=== PATIENT | male | born 1950 ===

== ENCOUNTER → 2020-01-08 08:32 | Outpatient (BNVA) | payer MEDICARE, OTHER, SELFPAY | PROVIDERS: PCP Internal Medicine; Referring Provider Internal Medicine; Visit Provider Urology | DX: E29.1 Testicular hypofunction (principal) | CPT/HCPCS: 81002; 99212 ==

== ENCOUNTER → 2020-07-08 09:17 | Outpatient (BNVA) | payer MEDICARE, OTHER, SELFPAY | PROVIDERS: PCP Internal Medicine; Visit Provider Urology | DX: Z13.89 Encounter for screening for other disorder (principal) | CPT/HCPCS: Q3014 ==

== ENCOUNTER 2020-12-15 09:00 | Outpatient (RCR) | payer MEDICARE, OTHER, SELFPAY ==
[2020-11-23 08:06] VITALS: BP 151/107; PULSE 89; O2SAT 100
== END 2021-01-21 12:03 | disposition home or self-care (01) ==
LOC: HO.PT 09:00
PROVIDERS: PCP Internal Medicine; Visit Provider Orthopaedic Surgery Adult Reconstructive Orthopaedic Surgery
DX: T84.84XA Pain due to internal orthopedic prosthetic devices, implants and grafts, initial encounter (principal); Z96.641 Presence of right artificial hip joint
CPT/HCPCS: 97110; 97112; 97162; 97530

== ENCOUNTER → 2020-12-31 10:48 | Outpatient (BNVA) | payer MEDICARE, OTHER, SELFPAY | PROVIDERS: PCP Internal Medicine; Visit Provider Urology | DX: N52.9 Male erectile dysfunction, unspecified (principal); N20.0 Calculus of kidney; N40.0 Benign prostatic hyperplasia without lower urinary tract symptoms; E29.1 Testicular hypofunction | CPT/HCPCS: Q3014 ==

== ENCOUNTER 2021-07-12 12:56 | Outpatient (REF) | payer MEDICARE, OTHER, SELFPAY ==
[2021-07-12 13:39] LABS: COVID-19 Test Negative (Negative); IDNOW Serial# 55D5AD1C
== END 2021-07-12 12:57 | disposition home or self-care (01) ==
LOC: HO.LAB 12:56
PROVIDERS: Visit Provider Internal Medicine
DX: Z20.822 Contact with and (suspected) exposure to COVID-19 (principal)
CPT/HCPCS: 87635; C9803

== ENCOUNTER → 2021-09-22 09:00 | Outpatient (BNVA) | payer MEDICARE, OTHER, SELFPAY | PROVIDERS: Visit Provider Urology | DX: E29.1 Testicular hypofunction (principal); N52.9 Male erectile dysfunction, unspecified; N40.0 Benign prostatic hyperplasia without lower urinary tract symptoms | CPT/HCPCS: Q3014 ==

== ENCOUNTER → 2022-03-31 08:29 | Outpatient (BNVA) | payer MEDICARE, OTHER, SELFPAY | PROVIDERS: PCP Pediatrics; Visit Provider Urology | DX: E29.1 Testicular hypofunction (principal); N40.1 Benign prostatic hyperplasia with lower urinary tract symptoms; N13.8 Other obstructive and reflux uropathy; N52.9 Male erectile dysfunction, unspecified; N20.0 Calculus of kidney; Z79.899 Other long term (current) drug therapy | CPT/HCPCS: 99212 ==

== ENCOUNTER → 2022-06-01 09:35 | Outpatient (BNVA) | payer MEDICARE, OTHER, SELFPAY | PROVIDERS: PCP Pediatrics; Visit Provider Urology | DX: N40.0 Benign prostatic hyperplasia without lower urinary tract symptoms (principal); E29.1 Testicular hypofunction | CPT/HCPCS: Q3014 ==

== ENCOUNTER → 2022-08-11 08:55 | Outpatient (BNVA) | payer MEDICARE, OTHER, SELFPAY | PROVIDERS: PCP Pediatrics; Visit Provider Urology | DX: N20.0 Calculus of kidney (principal); N40.0 Benign prostatic hyperplasia without lower urinary tract symptoms; E29.1 Testicular hypofunction | CPT/HCPCS: 99212 ==

== ENCOUNTER 2022-08-29 09:00 | Outpatient (RCR) | payer MEDICARE, OTHER, SELFPAY | END 2022-09-21 15:53 | disposition home or self-care (01) | LOC: HO.PT 09:00 | PROVIDERS: PCP Pediatrics; Visit Provider Physician Assistant | DX: M54.2 Cervicalgia (principal); M54.50 Low back pain, unspecified | CPT/HCPCS: 97012; 97110; 97112; 97140; 97162 ==

== ENCOUNTER 2023-02-24 10:19 | Outpatient (AMB) | payer MEDICARE, OTHER, SELFPAY ==
--- NOTE | 2023-02-24 10:20 | MHC.OFFVIS ---
Intake Intake Visit Reasons: 6M PSA/CBC/Testo(labs?) Intake Note: Patient is Present for Telephone Follow Up Urology Med: Tadalafil, Terazosin, Testosterone, Antibiotic Allergy: None Blood Thinner: Apixaban Allergies tamsulosin Allergy (Unknown, Verified 02/24/23 10:21) Unknown Medication List - Last Reconciled 02/24/23 by Erickson Huitron MD apixaban 5 mg PO BID furosemide 0 mg PO irbesartan 75 mg PO DAILY tadalafil 5 mg PO DAILY PRN 90 days tafamidis 61 mg PO DAILY terazosin 5 mg PO BEDTIME 90 days testosterone (AndroGel) 4 pumps transdermal QAM 28 days torsemide 10 mg PO DAILY HPI HPI Comments History of Present Illness Details Brett is a pleasant male. He is a patient of Dr. Flores. He is seen for the following urologic condition. 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 Initial symptoms include decreased libido Yes in muscle size/strength Yes increased fatigue/malaise Yes The onset of symptoms has been gradual Laboratory results followup 09/24 , testosterone 426, , PSA 1.5, , Hct 43 09/25 , testosterone 181, 04/29 - T 544, 10/27 - T 360, PSA 2.2, 10/28 - T 124, PSA 2.0 11/29 845 Hct 48 PSA 2.7, 12/30 T 460 PSA 3.4, 07/01 T 577, PSA 4.0, 07/02 T 1111 PSA 4.3 45.2. 03/03 307, 02/02 242 3.6 Current therapy includes gel/cream exogenous testosterone - 2 pumps Therapeutic plan continue current medication Lower urinary tract symptoms Has had urgency and frequency secondary to starting medications 07/01 PSA 4.0 Prior poor response to tamsulosin, alfuzosin Good response to daily tadalafil 5 mg PFS Medical History Atrial fibrillation Shingles Erectile dysfunction Colonic polyp Hypogonadism in male OA (osteoarthritis) BPH (benign prostatic hyperplasia) Bilateral nephrolithiasis Surgical History History of surgery Review of Systems Const All systems reviewed & are unremarkable except as noted in HPI and below Reports no additional complaints Resp Reports no additional complaints GI Reports no additional complaints Reports as per HPI Musc Reports no additional complaints Physical Exam Telemedicine evaluation Appropriate responses Regular breathing rate and rhythm HEENT Head: Yes normal to inspection Ears: hearing grossly normal bilaterally Eyes General: appearance normal, both eyes and all related structures Neck Neck: Yes normal visual inspection Chest Chest palpation & inspection: normal inspection of the chest Resp Effort & Inspection: normal respiratory effort and able to speak in complete sentences Assessment & Plan Assessment & Plan (1) Hypogonadism in male: Code(s): E29.1 - Testicular hypofunction (2) BPH (benign prostatic hyperplasia): Code(s): N40.0 - Benign prostatic hyperplasia without lower urinary tract symptoms Plan Three month follow-up lab work Increase T Orders: Orders Prostate Specific Antigen 3 Months E29.1 - Testicular hypofunction Testosterone, Total 3 Months E29.1 - Testicular hypofunction Complete Blood Count no Diff 3 Months E29.1 - Testicular hypofunction Medications: Changed From testosterone (AndroGel) apply 2 pumps total daily 2 pumps transdermal QAM 75 grams 5RF 28 days E29.1 - Testicular hypofunction To testosterone (AndroGel) apply 4 pumps total daily 4 pumps transdermal QAM 150 grams 5RF 28 days E29.1 - Testicular hypofunction Refilled tadalafil 5 mg PO DAILY PRN 90 tabs 1RF sexual activity 90 days terazosin 5 mg PO BEDTIME 90 caps 1RF 90 days N40.0 - Benign prostatic hyperplasia without lower urinary tract symptoms, N40.1 - Benign prostatic hyperplasia with lower urinary tract symptoms, R35.0 - Frequency of micturition Patient Instructions: Imaging studies, laboratory and physical exam results were discussed and reviewed in detail. No major barriers to patient understanding were identified. An opportunity to ask questions regarding the treatment plan was provided. All questions were answered. The patient expressed understanding and agreement with the above treatment plan. The patient is aware they should contact our office by phone for worsening of their current condition or the appearance of new urologic symptoms. Compliance is encouraged with any medications and followup testing that is ordered. It is a privilege to participate in the urologic care of your patient. If you have any questions or concerns regarding treatment for the above conditions, or other urologic issues, please do not hesitate to contact me. The office telephone contact is [phone]. This note is constructed using voice recognition software. While every effort has been made to ensure accuracy pattern storage clerk errors may have been included. Yours sincerely, Dr Erickson Huitron MD, [facility] - Urology Providers of Expert, Compassionate Care for the Genitourinary System Telehealth Telehealth Location of provider rendering services: practice address Location of patient: address on file Patient Identification confirmed using: Name, : Yes Telehealth method: video Patient verbally consented to treatment: Yes Patient verbally consented to billing insurance company: Yes Patient informed of any privacy concerns related to visit: Yes Coding Level of Care Code Tele Est Pt Level 4 (03448) Diagnoses Hypogonadism in male E29.1 BPH (benign prostatic hyperplasia) N40.0
== END 2023-02-24 10:49 | disposition home or self-care (01) ==
LOC: HO.HUSH 10:19
PROVIDERS: PCP Pediatrics; Visit Provider Urology
DX: E29.1 Testicular hypofunction (principal); N40.0 Benign prostatic hyperplasia without lower urinary tract symptoms
CPT/HCPCS: 99214

== ENCOUNTER → 2023-02-24 10:19 | Outpatient (BNVA) | payer MEDICARE, OTHER, SELFPAY | PROVIDERS: PCP Pediatrics; Visit Provider Urology ==

== ENCOUNTER 2023-05-30 09:39 | Outpatient (AMB) | payer MEDICARE, OTHER, SELFPAY ==
--- NOTE | 2023-05-30 10:14 | MHC.OFFVIS ---
Intake Intake Visit Reasons: 3M PSA/T/CBC(set)Confirmed Intake Note: Patient is Present for Follow Up Urology Medication: Tadalafil, Terazosin, Testosterone Antibiotic Allergies:none Blood Thinners:Apixaban Allergies tamsulosin Allergy (Unknown, Verified 02/24/23 10:21) Unknown Medication List - Last Reconciled 05/30/23 by Erickson Huitron MD apixaban 5 mg PO BID furosemide 0 mg PO irbesartan 75 mg PO DAILY tadalafil 5 mg PO DAILY PRN 90 days tafamidis 61 mg PO DAILY terazosin 5 mg PO BEDTIME 90 days testosterone (AndroGel) 4 pumps transdermal QAM 28 days torsemide 10 mg PO DAILY HPI HPI Comments History of Present Illness Details Brett is a pleasant male. He is a patient of Dr. Flores. He is seen for the following urologic condition. 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 Discussed recent data showing benefit in cardiac performance from testosterone usage. 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 Initial symptoms include decreased libido Yes in muscle size/strength Yes increased fatigue/malaise Yes The onset of symptoms has been gradual Laboratory results followup 09/24 , testosterone 426, , PSA 1.5, , Hct 43 09/25 , testosterone 181, 04/29 - T 544, 10/27 - T 360, PSA 2.2, 10/28 - T 124, PSA 2.0 11/29 845 Hct 48 PSA 2.7, 12/30 T 460 PSA 3.4, 07/01 T 577, PSA 4.0, 07/02 T 1111 PSA 4.3 45.2. 03/03 307, 02/02 242 3.6 Current therapy includes gel/cream exogenous testosterone - 2 pumps Therapeutic plan continue current medication Lower urinary tract symptoms Has had urgency and frequency secondary to starting medications 07/01 PSA 4.0, 06/03 4.5 Prior poor response to tamsulosin, alfuzosin Good response to daily tadalafil 5 mg [facility] Medical History Atrial fibrillation Shingles Erectile dysfunction Colonic polyp Hypogonadism in male OA (osteoarthritis) BPH (benign prostatic hyperplasia) Bilateral nephrolithiasis Surgical History History of surgery Review of Systems Const Denies chills and Denies fever(s) Card Reports no additional complaints and Denies syncope Resp Denies cough GI Denies abdominal pain and Denies heartburn Reports as per HPI and Denies change in libido Neuro Denies syncope Psych Denies change in libido Endo Denies change in libido Physical Exam Const General: cooperative, healthy appearing, comfortable and no acute distress Orientation/consciousness: patient oriented x3 HEENT Face and sinus: Yes normal facial exam Mouth: moist mucous membranes Neck Neck: Yes normal visual inspection, Yes full ROM and Yes trachea midline Chest Chest palpation & inspection: normal inspection of the chest Resp Effort & Inspection: normal respiratory effort, able to speak in complete sentences and no respiratory distress GI Inspection: Yes normal to inspection Back/Spine/Pelvis Cervical Spine: normal cervical lordosis Thoracic/Lumbar Spine: thoracic and lumbar spine normal to inspection Skin General skin exam: no rashes or lesions noted Neuro General: patient oriented x3, gait normal, tone normal and moves all extremities Extrem General: Yes normal to inspection and Yes capillary refill normal Assessment & Plan Assessment & Plan (1) Erectile dysfunction: Code(s): N52.9 - Male erectile dysfunction, unspecified (2) BPH (benign prostatic hyperplasia): Code(s): N40.0 - Benign prostatic hyperplasia without lower urinary tract symptoms (3) Hypogonadism in male: Code(s): E29.1 - Testicular hypofunction Plan Six-month follow-up lab work Orders: Orders Prostate Specific Antigen 6 Months E29.1 - Testicular hypofunction Testosterone, Total 6 Months E29.1 - Testicular hypofunction Complete Blood Count no Diff 6 Months E29.1 - Testicular hypofunction Medications: Changed From testosterone apply 4 pumps total daily 4 pumps transdermal QAM 28 days 150 grams 5RF E29.1 - Testicular hypofunction To testosterone (AndroGel) apply 4 pumps total daily 4 pumps transdermal QAM 150 grams 5RF 28 days E29.1 - Testicular hypofunction Refilled terazosin 5 mg PO BEDTIME 90 caps 1RF 90 days N40.0 - Benign prostatic hyperplasia without lower urinary tract symptoms, N40.1 - Benign prostatic hyperplasia with lower urinary tract symptoms, R35.0 - Frequency of micturition tadalafil 5 mg PO DAILY PRN 90 tabs 1RF sexual activity 90 days E29.1 - Testicular hypofunction Patient Instructions: Imaging studies, laboratory and physical exam results were discussed and reviewed in detail. No major barriers to patient understanding were identified. An opportunity to ask questions regarding the treatment plan was provided. All questions were answered. The patient expressed understanding and agreement with the above treatment plan. The patient is aware they should contact our office by phone for worsening of their current condition or the appearance of new urologic symptoms. Compliance is encouraged with any medications and followup testing that is ordered. It is a privilege to participate in the urologic care of your patient. If you have any questions or concerns regarding treatment for the above conditions, or other urologic issues, please do not hesitate to contact me. The office telephone contact is [phone]. This note is constructed using voice recognition software. While every effort has been made to ensure accuracy flexible machining system machinist errors may have been included. Yours sincerely, Dr Erickson Huitron MD, [facility] - Urology Providers of Expert, Compassionate Care for the Genitourinary System Coding Level of Care Code Est Pt Level 4 (96156) Diagnoses Erectile dysfunction N52.9 BPH (benign prostatic hyperplasia) N40.0 Hypogonadism in male E29.1
== END 2023-05-30 10:51 | disposition home or self-care (01) ==
PROVIDERS: PCP Pediatrics; Visit Provider Urology
DX: N52.9 Male erectile dysfunction, unspecified (principal); N40.0 Benign prostatic hyperplasia without lower urinary tract symptoms; E29.1 Testicular hypofunction
CPT/HCPCS: 99213

== ENCOUNTER → 2023-05-30 09:39 | Outpatient (BNVA) | payer MEDICARE, OTHER, SELFPAY | PROVIDERS: PCP Pediatrics; Visit Provider Urology | DX: E29.1 Testicular hypofunction (principal); N40.0 Benign prostatic hyperplasia without lower urinary tract symptoms; R35.0 Frequency of micturition | CPT/HCPCS: 99212 ==

== ENCOUNTER 2023-11-28 09:08 | Outpatient (AMB) | payer MEDICARE, OTHER, SELFPAY ==
--- NOTE | 2023-11-28 09:29 | A.OFFVIS_ITS ---
Intake Visit Reasons: 6m/labs(set) Intake Note: Patient is Present for Follow Up Labs Urology Medication: Testosterone, Terazosin, Tadalafil Antibiotic Allergies:None Blood Thinners: Apixaban Recent PSA: 11/10/23- PSA: 3.70 Testo: 354 Insurance Account Manager Required: No Accompanied by: Self / Same As Patient Allergies tamsulosin Allergy (Unknown, Verified 11/28/23 09:33) Unknown HPI Comments Details: Brett is a pleasant male. He is a patient of Dr. Flores. He is seen for the following urologic condition. 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 Discussed recent data showing benefit in cardiac performance from testosterone usage. 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 Initial symptoms include decreased libido Yes in muscle size/strength Yes increased fatigue/malaise Yes The onset of symptoms has been gradual Laboratory results followup 09/24 , testosterone 426, , PSA 1.5, , Hct 43 09/25 , testosterone 181, 04/29 - T 544, 10/27 - T 360, PSA 2.2, 10/28 - T 124, PSA 2.0 11/29 845 Hct 48 PSA 2.7, 12/30 T 460 PSA 3.4, 07/01 T 577, PSA 4.0, 07/02 T 1111 PSA 4.3 45.2. 03/03 307, 02/02 242 3.6, 11/03 350 Current therapy includes gel/cream exogenous testosterone - 2 pumps Therapeutic plan continue current medication Lower urinary tract symptoms Has had urgency and frequency secondary to starting medications 07/01 PSA 4.0, 06/03 4.5 Prior poor response to tamsulosin, alfuzosin Good response to daily tadalafil 5 mg PFS Medical History Atrial fibrillation Shingles Erectile dysfunction Colonic polyp Hypogonadism in male OA (osteoarthritis) BPH (benign prostatic hyperplasia) Bilateral nephrolithiasis Surgical History History of surgery Review of Systems Const Denies chills and Denies fever(s) Card Reports no additional complaints and Denies syncope Resp Denies cough GI Denies abdominal pain and Denies heartburn Reports as per HPI and Denies change in libido Neuro Denies syncope Psych Denies change in libido Endo Denies change in libido Physical Exam Const General: cooperative, healthy appearing, comfortable and no acute distress Orientation/consciousness: patient oriented x3 HEENT Face and sinus: Yes normal facial exam Mouth: moist mucous membranes Neck Neck: Yes normal visual inspection, Yes full ROM and Yes trachea midline Chest Chest palpation & inspection: normal inspection of the chest Resp Effort & Inspection: normal respiratory effort, able to speak in complete sentences and no respiratory distress GI Inspection: Yes normal to inspection Back/Spine/Pelvis Cervical Spine: normal cervical lordosis Thoracic/Lumbar Spine: thoracic and lumbar spine normal to inspection Skin General skin exam: no rashes or lesions noted Neuro General: patient oriented x3, gait normal, tone normal and moves all extremities Extrem General: Yes normal to inspection and Yes capillary refill normal Assessment & Plan Assessment & Plan (1) Bilateral nephrolithiasis: Code(s): N20.0 - Calculus of kidney Category: Medical (2) Hypogonadism in male: Code(s): E29.1 - Testicular hypofunction Category: Medical (3) Erectile dysfunction: Code(s): N52.9 - Male erectile dysfunction, unspecified Category: Medical Plan Six-month follow-up labs Patient Instructions: Imaging studies, laboratory and physical exam results were discussed and reviewed in detail. No major barriers to patient understanding were identified. An opportunity to ask questions regarding the treatment plan was provided. All questions were answered. The patient expressed understanding and agreement with the above treatment plan. The patient is aware they should contact our office by phone for worsening of their current condition or the appearance of new urologic symptoms. Compliance is encouraged with any medications and followup testing that is ordered. It is a privilege to participate in the urologic care of your patient. If you have any questions or concerns regarding treatment for the above conditions, or other urologic issues, please do not hesitate to contact me. The office telephone contact is [phone]. This note is constructed using voice recognition software. While every effort has been made to ensure accuracy hvac r instructor errors may have been included. Yours sincerely, Dr Erickson Huitron MD, [facility] - Urology Providers of Expert, Compassionate Care for the Genitourinary System Coding Level of Care Code Est Pt Level 3 (52887) Diagnoses Bilateral nephrolithiasis N20.0 Hypogonadism in male E29.1 Erectile dysfunction N52.9
== END 2023-11-28 09:54 | disposition home or self-care (01) ==
PROVIDERS: PCP Pediatrics; Visit Provider Urology
DX: N20.0 Calculus of kidney (principal); E29.1 Testicular hypofunction; N52.9 Male erectile dysfunction, unspecified
CPT/HCPCS: 99213

== ENCOUNTER → 2023-11-28 09:08 | Outpatient (BNVA) | payer MEDICARE, OTHER, SELFPAY | PROVIDERS: PCP Pediatrics; Visit Provider Urology | DX: E29.1 Testicular hypofunction (principal); N52.9 Male erectile dysfunction, unspecified; N20.0 Calculus of kidney; Z79.899 Other long term (current) drug therapy | CPT/HCPCS: 99212 ==

== ENCOUNTER 2024-06-19 09:25 | Outpatient (AMB) | payer MEDICARE, OTHER, SELFPAY ==
--- NOTE | 2024-06-19 09:26 | A.OFFVIS_ITS ---
Intake Visit Reasons: 6m/labs Intake Note: Patient is present for 6M/LABS Urology Medication:TADALAFIL,TESTOSTERONE,TERAZOSIN Antibiotic Allergy:NONE Blood Thinner:APIXABAN Mattress Renovator Required: No Allergies tamsulosin Allergy (Unknown, Verified 06/19/24 09:27) Unknown HPI Comments Details: Brett is a pleasant male. He is a patient of Dr. Flores. He is seen for the following urologic condition. 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 Discussed recent data showing benefit in cardiac performance from testosterone usage. 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 Initial symptoms include decreased libido Yes in muscle size/strength Yes increased fatigue/malaise Yes The onset of symptoms has been gradual Laboratory results followup 09/24 , testosterone 426, , PSA 1.5, , Hct 43 09/25 , testosterone 181, 04/29 - T 544, 10/27 - T 360, PSA 2.2, 10/28 - T 124, PSA 2.0 11/29 845 Hct 48 PSA 2.7, 12/30 T 460 PSA 3.4, 07/01 T 577, PSA 4.0, 07/02 T 1111 PSA 4.3 45.2. 03/03 307, 02/02 242 3.6, 11/03 350, 06/04 430 4.2 47 Current therapy includes gel/cream exogenous testosterone - 2 pumps Therapeutic plan continue current medication Lower urinary tract symptoms Has had urgency and frequency secondary to starting medications 07/01 PSA 4.0, 06/03 4.5 Prior poor response to tamsulosin, alfuzosin Good response to daily tadalafil 5 mg COUNTS INCLUDE 234 BEDS AT [facility] Medical History Atrial fibrillation Shingles Erectile dysfunction Colonic polyp Hypogonadism in male OA (osteoarthritis) BPH (benign prostatic hyperplasia) Bilateral nephrolithiasis Surgical History History of surgery Review of Systems Const Denies chills and Denies fever(s) Card Reports no additional complaints and Denies syncope Resp Denies cough GI Denies abdominal pain and Denies heartburn Reports as per HPI and Denies change in libido Neuro Denies syncope Psych Denies change in libido Endo Denies change in libido Physical Exam Const General: cooperative, healthy appearing, comfortable and no acute distress Orientation/consciousness: patient oriented x3 HEENT Face and sinus: Yes normal facial exam Mouth: moist mucous membranes Neck Neck: Yes normal visual inspection, Yes full ROM and Yes trachea midline Chest Chest palpation & inspection: normal inspection of the chest Resp Effort & Inspection: normal respiratory effort, able to speak in complete sentences and no respiratory distress GI Inspection: Yes normal to inspection Back/Spine/Pelvis Cervical Spine: normal cervical lordosis Thoracic/Lumbar Spine: thoracic and lumbar spine normal to inspection Skin General skin exam: no rashes or lesions noted Neuro General: patient oriented x3, gait normal, tone normal and moves all extremities Extrem General: Yes normal to inspection and Yes capillary refill normal Assessment & Plan Assessment & Plan (1) BPH (benign prostatic hyperplasia): Code(s): N40.0 - Benign prostatic hyperplasia without lower urinary tract symptoms Category: Medical (2) Erectile dysfunction: Code(s): N52.9 - Male erectile dysfunction, unspecified Category: Medical (3) Hypogonadism in male: Code(s): E29.1 - Testicular hypofunction Category: Medical Plan Continue follow-up Orders: Orders US bladder 06/19/24 R39.12 - Poor urinary stream, N40.0 - Benign prostatic hyperplasia without lower urinary tract symptoms Medications: New finasteride 5 mg PO DAILY 90 tabs 1RF 90 days N40.0 - Benign prostatic hyperplasia without lower urinary tract symptoms Patient Instructions: This note is constructed using voice recognition software. While every effort has been made to ensure accuracy sr account executive errors may have been included. Imaging studies, laboratory and physical exam results were discussed and revi ewed in detail. No major barriers to patient understanding were identified. An opportunity to ask questions regarding the treatment plan was provided. All questions were answered. The patient expressed understanding and agreement with the above treatment plan. The patient is aware they should contact our office by phone for worsening of their current condition or the appearance of new urologic symptoms. Compliance is encouraged with any medications and followup testing that is ordered. It is a privilege to participate in the urologic care of your patient. If you have any questions or concerns regarding treatment for the above conditions, or other urologic issues, please do not hesitate to contact me. The office telephone contact is [phone]. Sincerely, Dr Erickson Huitron MD, [facility] - Urology Compassionate Specialist Care for the Genitourinary System Coding Level of Care Code Est Pt Level 3 (23802) Complex EM visit Add On G2211 Diagnoses BPH (benign prostatic hyperplasia) N40.0 Erectile dysfunction N52.9 Hypogonadism in male E29.1
--- OUTSIDE RECORDS SUMMARY | 2024-06-19 10:10 | XMS_ITS | Clinical Summary ---
Author Organization [facility] Address [address] [place] [address] Care Team Providers Care Oracle Architect Name Role Phone Danilo Ann MD Primary Care Provider [phone] Social History Tobacco Use Types Packs/Day Years Used Date Smoking Tobacco: Never Assessed Sex and Gender Information Value Date Recorded Sex Assigned at Not on file Gender Identity Not on file Sexual Orientation Not on file Plan of Treatment Health Maintenance Due Date Last Done Comments Hepatitis C Screening 1950 COVID-19 Vaccine (#1) [birth year]15/1949 Depression Screening 1960 Preventative Health Evaluation 1966 Colon Cancer Screening (Colonoscopy) 1993 Shingrix-Zoster Vaccine (1 of 2) 1998 Fall Risk Assessment 2013 RSV Adult > 60+ Yrs or (1 - 1-dose 75+ series) 07/16/2023 Influenza Vaccine (#1) 2023 0, 01/04/2018, 02/27/2016, Additional history exists DTap / Tdap / Td (2 - Td or Tdap) 04/15/2029 04/15/2019 Pneumococcal Vaccine Completed 03/15/2016, 05/31/19 15 Hepatitis B Vaccines Aged Out No long er eligible based on patient's age to complete this topic RSV Ped < 20 months Aged Out No longe r eligible based on patient's age to complete this topic Care Teams Oracle Architect Relationship Specialty Start Date End Date Danilo Ann MD [address] [place] [address] PCP - General Internal Medicine 01/14/19
--- OUTSIDE RECORDS SUMMARY | 2024-06-19 10:10 | XMS_ITS | Encounter Summary ---
Author Organization [facility] Address [address] [place] [address] Care Team Providers Care Spun Paste Machine Operator Name Role Phone Tavo Flores DO Primary Care Provider Reason for Visit * Reason Onset Date Comments Pre-operative Clearance 06/04/2024 Encounter Details Date Type Department Care Team (Late st Contact Info) Description 06/04/2024 Telephone [facility] [address] [place] [phone] Amando Kat MD [address] [place] [address] [address]IVE [address] [place] [address] Pre-operative Clearance Social History Tobacco Use Types Packs/Day Years Used Date Smoking Tobacco: Former Smokeless Tobacco: Never Alcohol Use Standard Drinks/Week Comments Yes 2 (1 standard drink = 0.6 oz pure alcohol) 2 drinks max per day, but normally not 2 Sex and Gender Information Value Date Recorded Sex Assigned at Not on file Legal Sex Male 10:03 AM EST Gender Identity Not on file Sexual Orientation Not on file Travel History Travel Start Travel End [place] 05/11/2024 05/19/2024 documented as of this encounter Progress Notes * Jackie Cannon RN - 06/04/2024 1:14 PM EDT I spoke to Brett and informed him of the below message. I advised him to contact his surgeon's office to see if another cardiac risk assessment appt is necessary. He voiced understanding and will call back if he needs another preop appt. * Heather Mederos NP - 06/04/2024 12:16 PM EDT Up to his surgeon, but don't think so. * Arielle Alvarado - 06/04/2024 10:41 AM EDT The patient called, he was seen on 04/05/24 with Heather for clearance for a removal of a sebaceous cyst. He did not end up going through with the procedure. He is now thinking about rescheduling it butneeds a new clearance. Is an appointment necessary. He would like a call back at [phone]. documented in this encounter Plan of Treatment Upcoming Encounters Date Type Department Care Team (Late st Contact Info) Description 10/04/2024 8:50 AM EDT Office Visit [facility]iology [facility] [address] [place] [address] Dr [address] [place] [address] Amando Kat MD [address] [place] [address] [address]IVE [address] [place] [address] documented as of this encounter Visit Diagnoses Not on filedocumented in this encounter Care Teams Spun Paste Machine Operator Relationship Specialty Start Date End Date Tavo Flores DO [address] [place] [address] [place] [address] PCP - General Internal Medicine 04/05/24 documented as of this encounter
--- OUTSIDE RECORDS SUMMARY | 2024-06-19 10:10 | XMS_ITS | Clinical Summary ---
Author Organization [facility] [employer] Address [address] [address] Phone Care Team Providers Care Stock Transfer Clerk Name Role Phone Tavo Flores DO Primary Care Provider Allergies No known active allergies Medications torsemide (DEMADEX) 10 mg tablet Take 1 tablet (10 mg total) by mouth 1 (one) time each day. 90 tablet 1 01/26/20 24 Active terazosin (HYTRIN) 5 mg capsule Take 1 capsule (5 mg total) by mouth at bedtime. Active testosterone 20.25 mg/1.25 gram (1.62 %) gel in metered-dose pump Apply topically. 06/13/19 20 Active apixaban (ELIQUIS) 5 mg tablet Take 1 tablet (5 mg total) by mouth 2 (two) times a day. 12/03/19 20 Active tadalafiL (CIALIS) 5 mg tablet Take 1 tablet (5 mg total) by mouth 1 (one) time each day. 12/03/19 20 Active tafamidis (Vyndamax) 61 mg capsule Take 61 mg by mouth daily. Active cholecalciferol, vitamin D3, (VITAMIN D3 ORAL) Take by mouth. Active irbesartan (AVAPRO) 75 mg tabletIndication s:Essential (primary) hypertension TAKE 1 TABLET BY MOUTH EVERY DAY 90 tablet 1 06/20/19 25 Active irbesartan (AVAPRO) 75 mg tablet Take 1 tablet (75 mg total) by mouth 1 (one) time each day. 10/20/19 24 025 Discontinued Active Problems Problem Noted Date Diagnosed Date Neck pain 07/29/2022 Overview (03/20/2024): Last Assessment & Plan: Mr. Conde describes at least 2 months of neck pain with insidious onset. He denies any radiation to the arms but does get some pain in the left trapezius. There were no myelopathic findings on examination. We will send him for some x-rays of the cervical spine and then likely have him go for physical therapy including cervical traction (prescription provided today). He will follow-up with us afterwards and if he is not improving we will send him for an MRI. Lumbar spondylosis 04/14/2022 Overview (03/20/2024): Last Assessment & Plan: Mr. Conde is quite physically active with biking and kayaking but he continues to have severe ache throughout his lower back bothers him all day every day. On rare occasions when he has been standing for a long period of time, he will get numbness and tingling in the right anterior thigh and he has to stomp his leg to shake it off to maintain his balance. He is currently taking Tylenol and using a CBD cream. On exam, he rises from the chair easily, moves all extremities with full strength, gait is steady. We directly reviewed his lumbar spine MRI from 08/04/2022 showing severe lumbar degenerative disc disease with Modic changes from T11-S1 worst at L2-3 and L4-5. There is evidence of his previous decompression at L3-4 with mild central stenosis at L2-3 and right greater than left lateral recess stenosis at L4-5. Overall, this is a picture of chronic degenerative changes and I cannot fix this. The only surgical optio would be for a right L4-5 MIS decompression though it would preferentially relieve the L5 root not the L4 root. As the right leg symptoms are rare, this is not his main concern. In terms of treating the failed back syndrome I advised that he can take Tylenol 1000mg 3 times daily, continue the cream, continue being active but adding something like swimming and, lastly, we discussed the option of a spinal cord stimulator. He has done some research on this and will read up on it a little more. If he wishes to pursue this, we can refer him to pain management for the spinal cord stimulator trial. Assessment & Plan (05/31/2024 12:57 PM EDT): We discussed treatment options for Mr. Conde's ongoing daily low back pain including walking and/or swimming, injection therapy including trigger points, facet injections and ESIs, physical therapy which he has already done at [facility], spinal cord stimulator and the Intracept procedure. He did not feel that physical therapy was of benefit and he does not wish to have anything implanted such as the SCS. We discussed injection therapy again at length and whether or not it would help for pure back pain as he does not have any radicular pain. He recommended that he discuss injections and the Intracept procedure at [facility] and he was given a brochure on it. Before considering any intervention, I am going to send him for new lumbar spine MRI since his pain has worsened and the previous study is 2 years old. In the interim, he will continue using marijuana and walking 1 to 2 miles per day as tolerated. 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 Boogie at [facility] for history of wild-type ATTR amyloidosis. His condition appears to be stable and he appears euvolemic at this time. He will continue on tafamidis and furosemide as prescribed. Stage 3 chronic kidney disease 06/03/2020 Hyperlipidemia 06/02/2020 Overview (03/20/2024): Last Assessment & Plan: Lipids are monitored by his primary care. 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 He is being treated with tafamidis. Presently his symptoms are stable. Atrial fibrillation 02/14/2020 Overview (03/20/2024): Last Assessment & Plan: Patient has history of chronic atrial fibrillation and remains on chronic anticoagulation with Eliquis. He is not on a beta-maya due to his history of amyloidosis. He was previously on calcium channel maya however this made him feel unwell. Heart rate today is 101 bpm. He has been experiencing upper respiratory infection symptoms and this is likely the result of his infection. He does not want to resume any rate controlling therapies at this time. He will continue to monitor symptoms and let us know if he develops any palpitations or increased heart rate. Assessment & Plan (04/05/2024 3:58 PM EST): Patient has a longstanding history of persistent atrial fibrillation, EKG in the office today showing elevated ventricular rates at 109. His rate has been elevated for some time now and patient continues to deny symptoms. He has had difficulty with rate control medications in the past and he is not currently on any rate control medications. Per Dr. Boogie, if he continues to have elevated ventricular rates and develops symptoms, next step would be an AV wade ablation and permanent pacemaker placement. He has a [id number] score of 4 and continues on Eliquis for stroke prevention. Hypertension 02/14/2020 Overview (03/20/2024): Last Assessment & Plan: Patient's blood pressure is well-controlled with a reading today of 136/70. No changes to his medical therapies today. Assessment & Plan (04/05/2024 3:45 PM EST): Blood pressure is well-controlled today at 108/64. He should continue with irbesartan as prescribed. 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 Encounters Date Type Department Care Team Description 06/04/2024 Telephone [facility] [address] [address] [place] [address] Amando Kat MD Pre-operative Clearance 06/04/2024 Telephone [facility] [address] [facility] [address] [place] [address] [facility] [place] [place] 05/31/2024 11:15 AM EDT Office Visit [facility] [address] [facility] [address] [place] [address] Paola Arizmendi MD Lumbar spondylosis (Primary Dx) 05/21/2024 Telephone [facility] [address] [facility] [address] [place] [address] Monalisa [place], [place] 04/05/2024 1:40 PM EST Consult [facility]iology [address] [place] [phone] Heather Mederos, MANUELA Preop cardiovascular exam (Primary Dx); Atrial fibrillation, unspecified type (CMS/HCC); Wild-type transthyretin-related (ATTR) amyloidosis ([facility]/HCC); Primary hypertension from Last 3 Months Immunizations Name Administration Dates Next Due Influenza Quadravalent, 0.5ml (Fluad) 65yo and o lder 12/15/2020 Influenza Quadravalent, 0.5m l (Fluzone High-dose) 65yo and older 12/29/2021 Influenza Quadravalent, acacia mbinant, 0.5ml, preservative free (Flublok) 18yo and older 12/18/2019 Influenza trivalent, 0.5mL (Fluad) 65yo and olde r 01/04/2018 Influenza trivalent, 0.5mL ( Fluzone High-dose) 65yo and older 02/27/2016,01/23/2016 Influenza, Unspecified 12/11/2018 Pneumococcal conjugate 13 va lent (Prevnar 13, PCV13) 2mo and older 05/30/2014 Pneumococcal polysaccharide 23 valent (Pneumovax 23) 2yo and older 03/15/2016 Pneumococcal, Unspecified 03/15/2016 Tdap Tetanus diptheria acell ular pertussis (Boostrix; Adacel) 7yo and older 04/15/2019 Zoster Live 03/23/2011 Surgical History Surgery Date Site/Laterality Comments TOTAL KNEE ARTHROPLASTY PROCEDURE: [place] ARTHRP KNE CONDYLE&PLATU MEDIAL&LAT COMPARTMENTS OTHER SURGICAL HISTORY PROCEDURE: [place] ARTHRP ACETBLR/PROX FEM PROSTC AGRFT/ALGRFT SHOULDER SURGERY Right PROCEDURE: HISTORICAL SHOULDER SURGERY BACK SURGERY 01/22/2019 PROCEDURE: HISTORICAL BACK SURGERY; COMMENT: L2-3 L3-4 decomp Medical History Medical History Date Comments A-fib (CMS/HCC) DX:A-fib (HCC) Amyloidosis DX:Amyloidosis ( HCC) Sensorineural hearing loss DX:Se nsorineural hearing loss Osteoarthritis DX:Osteoarthriti s Social History Tobacco Use Types Packs/Day Years [...] file Travel History Travel Start Travel End [place] 05/11/2024 05/19/2024 Obstetrics History Last Filed Vital Signs Vital Sign Reading Time Taken Comments Blood Pressure 108/64 04/05/2024 1:44 PM EST Pulse 109 04/05/2024 1:44 PM EST Temperature - - Respiratory Rate - - Oxygen Saturation 98% 04/05/2024 1:44 PM EST Inhaled Oxygen Concentration - - Weight 76.2 kg (168 lb 1.6 oz) 04/05/2024 1:44 P M EST Height 175.3 cm (5' 9 ) 04/05/2024 1:44 PM EST Body Mass Index 24.82 04/05/2024 1:44 PM EST Plan of Treatment Upcoming Encounters Date Type Department Care Team (Late st Contact Info) Description 10/04/2024 8:50 AM EDT Office Visit [facility] [address] [place] [address] [address] [place] [phone] Amando Kat MD [address] [place] [address] [address] [place] [address] Health Maintenance Due Date Last Done Comments Zoster Vaccines (2 of 3) 05/18/2011 03/23/2011 Abdominal Aortic Aneurysm (AAA) Screen 02/13/2022 Cholesterol Screening (Lipid Panel) 02/13/2022 Colorectal Cancer Screening: Colonoscopy 02/13/2022 Depression Screening 02/13/2022 Falls Risk Assessment 02/13/2022 Social Influencers of Health Screening 02/13/2022 Medicare Annual Wellness Visit 05/20/2023 05/19/2022 RSV Immunization Adult Patients (1 - 1-dose 75+ series) 07/16/2023 Hypertension/CHF/CAD Annual BMP Blood Test 02/07/2024 02/06/2023, 04/30/2021, 04/28/2021, Additional history exists DTaP,Tdap,and Td Vaccines (2 - Td or Tdap) 04/15/2029 04/15/2019 Pneumococcal Vaccine: 50+ Years Completed 03/15/2016, 03/15/2016, 05/30/2014 Hepatitis C Screening Completed 04/17/2019 COVID-19 Vaccine Completed 01/03/2024, 04/2021, 01/06/2021, Additional history exists Influenza Vaccine Completed 01/03/2024, , 12/29/2021, Additional history exists HIB Vaccines Aged Out No longer eligi ble based on patient's age to complete this topic HPV Vaccines Aged Out No longer eligi ble based on patient's age to complete this topic Hepatitis A Vaccines Aged Out No long er eligible based on patient's age to complete this topic Hepatitis B Vaccines Aged Out No long er eligible based on patient's age to complete this topic IPV Vaccines Aged Out No longer eligi ble based on patient's age to complete this topic MMR Vaccines Aged Out No longer eligi ble based on patient's age to complete this topic Meningococcal ACWY Vaccine Aged Out N o longer eligible based on patient's age to complete this topic Meningococcal B Vaccine Aged Out No l onger eligible based on patient's age to complete this topic RSV Immunization Patients Under 20 months Aged Out No longer eligible based on patient's age to complete this topic Varicella Vaccines Aged Out No longer eligible based on patient's age to complete this topic Procedures Procedure Name Priority Date/Time Associated Diagnosis Comments ECG 12-LEAD Routine 04/05/2024 4:18 PM EST Atrial fibrillation, unspecified type (CMS/HCC) ANNUAL BMP BLOOD TEST Routine 02/06/2023 from Last 3 Months or Most Recently Relevant to Health Maintenance Results * ECG 12 lead (04/05/2024 4:18 PM EST) Pathologist [facility] Ventricular Rate ECG 109 BPM GEMUSE Atrial Rate 156 BPM GEMUSE QRS Duration 106 ms GEMUSE Q-T Interval 330 ms GEMUSE QTc 444 ms GEMUSE R Miracle -82 degrees GEMUSE T Miracle 94 degrees GEMUSE ECG Interpretation Atrial fibrillation with rapid ventricular response Left axis deviation Inferior-roll mill operator ior infarct , age undetermined Anterior infarct (cited on or before 16-JAN-2019) Abnormal ECG When compared with ECG of 02/28/2023 ST & T wave abnormality no longer seen inferior infarct new Confirmed by Arsenio KAT JAMES ([id number]) on 04/05/2024 4:58:42 PM GEMUSE 04/05/2024 1:57 PM EST 04/05/2024 4:58 PM EST Heather Mederos RADIO ANNOUNCER ECG ORDERABLES Edited Resul t - Final GEMUSE * Annual BMP Blood Test (02/06/2023) [facility] Annual BMP Blood Test abstracted Historical Provider MD HEALTH MAINTENANCE Final Result from Last 3 Months or Most Recently Relevant to Health Maintenance Insurance MEDICARE [facility] Care Teams Stock Transfer Clerk Relationship Specialty Start Date End Date Tavo Flores DO [address] [place] [address] PCP - General Internal Medicine 04/05/24
--- OUTSIDE RECORDS SUMMARY | 2024-06-19 10:10 | XMS_ITS | Data Portability ---
Author Organization [place] - [facility], Allergy Address [address] [place] [id number] Care Team Providers Care Energy Project Manager Name Role Phone DANIEL EVANGELISTA Primary Care Provider Assessment Encounter Date Assessment Date Assessment LastModified by Organization Details LastModified Time 02/20/2024 02/20/2024 02-20-2024 Sergei is doing well with the aids but insists that the molds are too big. Again, they fit beautifully but he is not getting the helix portion in completely and is not open to instruction. I ordered a new pair of molds for him and asked that they make the overall size a little smaller and that they reduce the size of that helix portion. Also had them change the material to something that i can buff, if needed. He mentioned the Phonak Jj again although he hasn't had his phone checked for updates. Vicky happened to be free so she tried to load it without success. She also suggested that he have the phone checked. Additionally, she suggested that he not worry about it as the aids pair to his phone, and he's used to using the volume control on his aids. R/s to fit new molds. Mai Fuller MA [facility] vanesa Not available 03/18/2024 11:11:56 02/23/2024 02/23/2024 The right device is making beeping chimes because he is not wearing the left device; they are partner alerts letting the user know that the contralateral hearing aid is missing or turned off. The left device had no output due to moisture in the tubing which was visible and shown to the patient. Patient was provided a tubing blower, as well as bridge/implant floss, and shown how to clean tubing. Of note, patient has no dampers in the tone hooks of his old hearing aids (right Siemens, left Phonak Ruth M50 BTE). I cautioned patient that this could have been removed in the past due to moisture clogging them, since I also remove dampers to prevent moisture from clogging them as well, but for now his new hearing aids will have the dampers in their tone hooks. Although the hearing aids work fine with the patient's Pixel 7 android phone, we were unable to pair it to the [employer] application. Patient does not appear bothered by this but I encouraged him to try pairing at home after we called [employer] and they explained that a better cell phone signal may be necessary. We can revisit this at a later appointment. Regarding the earmold, a new impression was taken of his left ear and sent with the earmold to [facility] for remake. Patient has a scheduled appointment with Mai on March 14 but was cautioned that we may have to reschedule this if the earmold does not arrive in time due to the holidays. Follow up with Mai for earmold fitting. In the meantime, the old earmold was removed from the Phonak Ruth M50 BTE and coupled to the new Phonak Ruth L90. Patient reported satisfaction with sound quality and output. [email or web address] Not available 02/23/2024 15:01:28 03/14/2024 03/14/2024 03-14-2024 Patient here to p/u remade earmolds. Before he came in, I actually buffed down the helix area a little bit. Patient inserted earmolds easily and was happy with the fit. He asked me to increase the left aid slightly as it wasn't as loud as the right ear. When I questioned why he thought there was a difference between ears, he stated that sometimes, when not hearing well, he turns his left ear toward the source. He does not notice a difference in loudness when sitting across from me. I explained the head turn might not mean that the left aids needs to be increased. I actually raised both aids a little. He asked that I unlink the volume controls which I did; VC are now independent. He notices a slight delay when the hearing aids connect to a phone call. Vicky had already addressed this with him and I reminded him that this occurs between Phonak aids and Android phones. Unfortunately, we cannot correct it. R/s Mai alexis Not available 03/18/2024 11:49:24 03/26/2024 03/26/2024 Last visit for hearing aid purchase. Left earmold still isn't comfortable when I push on it . I buffed it and he thought it was improved. No changes to the settings of the hearing aids. Patient was given paperwork for [employer] and I filled out the areas pertaining to the hearing aid purchase. He understands if there is a problem with reimbursement, he needs to call the insurance company himself. He has the date for warranty expiration. He understands we would like to return the aids to [employer] prior to expiration, to have the aids cleaned, checkes, and THE BATTERIES REPLACED. Return PRN Hearing Aid Fitting Details Date: Commercial Intern & Model: Phonak Ruth L 90-OK's Color: Silver ceballos Ear coupling: tone hook Serial Numbers Right: [id number] Left: [id number] Warranty Expiration: 03-05-2027 Accessories: Skeleton molds with BRYAN. Made with a reduced helix area. Programs: vanesa Not available 03/26/2024 12:05:58 06/04/2024 06/04/2024 Patient states that his right aid doesn't seem to hold a charge as long as the left aid. I explained why that is and asked how much he streamed. At first he said not too much but as we continued to talk, he often listens to music from his phone directly to his aids. Additionally, he said at one point, the right aid beeped as if it was low so he placed it in the sql database programmer for a few seconds, then was able to continue using is for the rest of the day. For this reason, I suggested we send it to [employer] to be checked. He may be having surgery in the near future and didn't want to be without the aid so he will wait a bit. I think he understands the more he uses the phone and the more he streams, the charge might not last all day as he is up early and goes to bed late. He understands that he can put the aid(s) in the sql database programmer for 30-60 minutes and will get hours more of battery life. AND, he actually stated that he likes the aids and is doing well with them. Mai alexis Not available 06/04/2024 10:53:32 Plan of Treatment Reminders Order Date Submit Date Provider Last Modified By Organization Details Last Modified Time Details Appointments None record ed. Lab None record ed. Referral None record ed. Procedures None record ed. Surgeries None record ed. Imaging None record ed. Medication Orders None record ed. Patient TargetsNo targets recorded. Patient InstructionsNo instructions recorded. Reason for Referral None Reported. Problems Name Problem SNOMED Code Status Onset Date Resolution Date Notes Provider Name and Address Organization Details Recorded Time Mixed 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, bilatera l 861258844 Active 2019 Mixed 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, bilatera l; Note: Date Diagnose d: 0 3:55 PM (H90.6) Not Available [facility] 4 03:13:05 Mixed 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 of right ear 99267656744 105 Active 2016 Mixed 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, unilater al, right ear with restrict ed hearing on the contrala teral side; Note: Date Diagnose d: 7 11:57 AM (H90.A31 ) Not Available [facility] 4 03:13:03 Acute serous otitis media of left ear [id number] 32726 Completed 201910/13/2023 Acute serous otitis media, left ear; Note: Date Diagnose d: 0 4:54 PM (H65.02) Not Available [facility] 4 03:13:04 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 34327817 Completed 201710/13/2023 Otoscler osis involvin g oval window, oblitera tive, right ear; Note: Date Diagnose d: 05/15/2017 12:06 PM (H80.11) Not Available On license of [facility] 4 03:13:03 Follow-u p visit Active 2017 Medical surveill ance followin g complete d treatmen t; Note: Date Diagnose d: 8 10:30 AM (Z09) Not Available On license of [facility] 4 03:13:03 Abnormal auditory percepti on 48095851 Active 2017 Other abnormal auditory percepti ons, right ear; Note: Date Diagnose d: 8 2:49 PM (H93.291 ) Not Available [facility] 4 03:13:04 Impacted cerumen in left ear 97895231606 42867 Active 2019 Impacted cerumen, left ear; Note: Date Diagnose d: 0 8:44 AM (H61.22) Not Available [facility] 4 03:13:04 Otoscler osis 17691558 Completed 201710/13/2023 Unspecif ied otoscler osis, left ear; Note: Date Diagnose d: 05/15/2017 12:06 PM (H80.92) Unspec ified otoscler osis, bilatera l; Note: Date Diagnose d: 7 11:58 AM (H80.93) ; Start Date : 09/01/19 17 Not Available On license of [facility] 4 03:13:04 Sensorin eural hearing loss in left ear 79880074550 109 Active 2016 Sensorin eural hearing loss, unilater al, left ear, with restrict ed hearing on the contrala teral side; Note: Date Diagnose d: 7 11:57 AM (H90.A22 ) Not Available On license of [facility] 4 03:13:04 Otoscler osis 60332134 Active 2023 HAILEE WOODRUFF MD [address] [place] [address],[place] [address], [place], [address] , [place] - [facility] 4 12:52:57 Sensorin eural hearing loss of bilatera l ears 868143011 Active 2023 MAI FULLER MA, CCC-A [address] [facility],[place] [address], [place], [address] , [place] - [facility] 15:18:30 Problem Notes None recorded. Procedures Surgical History Date Name Laterality Status Provider Name and Address Organization Details Recorded Time 11/29/2023 Comp Audio with Tymps (51662 & 15096) completed MAI FULLER [place], [facility] [address] [facility], [place], [address], [place] - [facility] 11/29/2023 09:33:52 Imaging Results None recorded. Procedure Notes None recorded. Medical Equipment None Reported. Allergies No known drug allergies Medications Name Sig Start Date Stop Date Status Note LastModified by Organization Details LastModified Time terazosin 5 mg capsule TAKE 1 CAPSULE BY MOUTH AT BEDTIME FOR 90 DAYS active Not Available Not Available No t Available metoprolo l succinate ER 50 mg tablet,ex tended release 24 hr 07/26 completed Medicati on ID: [id number] D uration Value: 90 Reason: () Brand Name: metoprol ol succinat e Send Method: E-Prescr ibed Sub s Allowed: subs OK Speci al Instruct ion: TAKE 1 TABLET BY MOUTH TWICE A DAY Medi cationGe nericNam e: metoprol ol succinat e Not Available Not Available Not Available hydrocodo ne 5 mg-acetam inophen 325 mg tablet 10/17 completed Medicati on ID: [id number] D uration Value: 3 Reason: () Brand Name: hydrocod one-acet aminophe n Send Method: E-Prescr ibed Sub s Allowed: subs OK Speci al Instruct ion: TAKE 1 TO 2 TABLETS BY MOUTH EVERY 6 HOURS NEEDED FOR PAIN Med icationG enericNa me: hydrocod one-acet aminophe n Not Available Not Available Not Available prednison e 20 mg tablet 2 tablet by mouth 11/28 completed Medicati on ID: [id number] D uration Value: 3 Prescri bed By Name: Arsenio Mena nd Name: predniso ne Send Method: E-Prescr ibed Sub s Allowed: subs OK Speci al Instruct ion: 2 tabs daily for 3 days Med icationG enericNa me: predniso ne Not Available Not Available Not Available torsemide 10 mg tablet TAKE 1 TABLET BY MOUTH 1 TIME EACH DAY. active Not Available Not Available No t Available Ciloxan 0.3 % eye drops 11/28 completed Medicati on ID: [id number] D uration Value: 10 Prescri bed By Name: NINI Miranda nd Name: Ciloxan Send Method: E-Prescr ibed Sub s Allowed: subs OK Speci al Instruct ion: Instill 4 drops twice a day into the right ear Medi cationGe nericNam e: Ciloxan Not Available Not Available Not Available ketorolac 0.5 % eye drops PLACE 1 DROP IN SURGICAL EYE 3 TIMES A DAY FOR 3 WEEKS FOLLOWIN G CATARACT SURGERY active Not Available Not Available No t Available oseltamiv ir 75 mg capsule 2019 active Medicati on ID: [id number] D uration Value: 5 Brand Name: oseltami vir Send Method: E-Prescr ibed Sub s Allowed: subs OK Medic ationGen ericName : oseltami vir Not Available Not Available Not Available irbesarta n 75 mg tablet TAKE 1 TABLET BY MOUTH EVERY DAY active Not Available Not Available No t Available metoprolo l succinate ER 25 mg tablet,ex tended release 24 hr 2017 active Medicati on ID: [id number] D uration Value: 30 Brand Name: metoprol ol succinat e Send Method: E-Prescr ibed Sub s Allowed: subs OK Speci al Instruct ion: TAKE 1 TABLET BY MOUTH EVERY DAY Medi cationGe nericNam e: metoprol ol succinat e Not Available Not Available Not Available tadalafil 5 mg tablet TAKE 1 TABLET BY MOUTH DAILY NEEDED FOR SEXUAL ACTIVITY FOR 90 DAYS active Not Available Not Available No t Available Multaq 400 mg tablet 2017 active Medicati on ID: [id number] D uration Value: 45 Brand Name: Multaq S end Method: E-Prescr ibed Sub s Allowed: subs OK Speci al Instruct ion: TAKE 1 TABLET BY MOUTH TWICE A DAY WITH MEALS Me dication GenericN kobe: Multaq Not Available Not Available Not Available testoster one 10 mg/0.5 gram/actu ation transderm al gel pump 11/28 completed Medicati on ID: [id number] D uration Value: 24 Brand Name: oren Overton d Method: E-Prescr ibed Sub s Allowed: subs OK Speci al Instruct ion: APPLY 5 PUMPS EVERY DAY Medi cationGe nericNam e: oren fan Not Available Not Available Not Available testoster one 20.25 mg/1.25 gram per pump act.(1.62 %) transderm al gel USE 4 PUMP TRANSDER CELIA EVERY MORNING FOR 28 DAYS APPLY 4 PUMPS TOTAL DAILY active Not Available Not Available No t Available Eliquis 5 mg tablet TAKE 1 TABLET BY MOUTH TWICE A DAY active Not Available Not Available No t Available Vyndamax 61 mg capsule active Not Available Not Available Not Available Paxlovid 300 mg (150 mg x 2)-100 mg tablets in a dose pack TAKE 3 TABLETS BY MOUTH TWICE A DAY FOR 5 DAYS 11/28 completed Not Available Not Available Not Available Vitals None Recorded Social History None recorded. Functional Status None recorded. Mental Status None recorded. Family History Nothing Reported. Medical History No medical history recorded. Past Encounters Encounter ID Performer Location Encounter Start Date Encounter Closed Date Diagnosis/Indication Diagnosis SNOMED-CT Code Diagnosis ICD10 Code Diagnosis Note [id number] HAILEE WOODRUFF MD [facility] [address] [address] 11/29/2023 08:20:20 11/29/2023 09:56:38 Otosclerosis 73026282 H80.93 Sensorineu ral hearing loss in left ear 8549544229 9109 H90.A22 Audiologic al evaluation results: Right ear: {{Normal N ormal through 2 kHz Mild M oderate Mo derately-s evere Radha re Profoun d Mild to profound#} } {{hearing sloping to a mild slopi ng to a moderate s loping to moderately severe slo ping to severe slo ping to profound f lat high frequency low frequency mid frequency cookie bite fonseca curve mixe d hearing loss#}} {{with* se nsorineura l hearing loss with condu ctive hearing loss with mixed hearing loss with}} {{excellen t* good fa ir poor no measurable }} word recognitio n. Left ear: {{Normal N ormal through 2 kHz Mild M oderate Mo derately-s evere Radha re Profoun d mild sloping to #}} {{hearing sloping to a mild slopi ng to a moderate s loping to moderately severe slo ping to severe slo ping to profound f lat high frequency low frequency mid frequency cookie bite fonseca curve prof ound SNHL#}} {{with* se nsorineura l hearing loss with condu ctive hearing loss with mixed hearing loss with}} {{excellen t* good fa ir poor no measurable }} word recognitio n. Tympanomet ry: Right Ear:{{Type A Type As Type Ad* Type C Type C, shallow & rounded Ty pe B Type B with large volume Cou ld not maintain a hermetic seal}} Left Ear:{{Type A* Type As Type Ad Type C Type C, shallow & rounded Ty pe B Type B with large volume Cou ld not maintain a hermetic seal}} Mixed cond uctive and sensorineural hearing loss of right ear 3613054704 9105 H90.A31 [id number] MAI FULLER MA, CCC-A [facility] [address] [address] 11/29/2023 09:33:21 11/29/2023 11:53:20 Sensorineural hearing loss in left ear 0107681463 9109 H90.A22 Audiologic al evaluation results: Right ear: {{Normal N ormal through 2 kHz Mild M oderate Mo derately-s evere Radha re Profoun d Mild to profound#} } {{hearing sloping to a mild slopi ng to a moderate s loping to moderately severe slo ping to severe slo ping to profound f lat high frequency low frequency mid frequency cookie bite fonseca curve mixe d hearing loss#}} {{with* se nsorineura l hearing loss with condu ctive hearing loss with mixed hearing loss with}} {{excellen t* good fa ir poor no measurable }} word recognitio n. Left ear: {{Normal N ormal through 2 kHz Mild M oderate Mo derately-s evere Radha re Profoun d mild sloping to #}} {{hearing sloping to a mild slopi ng to a moderate s loping to moderately severe slo ping to severe slo ping to profound f lat high frequency low frequency mid frequency cookie bite fonseca curve prof ound SNHL#}} {{with* se nsorineura l hearing loss with condu ctive hearing loss with mixed hearing loss with}} {{excellen t* good fa ir poor no measurable }} word recognitio n. Tympanomet ry: Right Ear:{{Type A Type As Type Ad* Type C Type C, shallow & rounded Ty pe B Type B with large volume Cou ld not maintain a hermetic seal}} Left Ear:{{Type A* Type As Type Ad Type C Type C, shallow & rounded Ty pe B Type B with large volume Cou ld not maintain a hermetic seal}} Mixed cond uctive and sensorineural hearing loss of right ear 1391762714 9105 H90.A31 MAI FULLER MA, [facility] [place] [address] [facility],[address] [place] [address] 12/13/2023 13:05:09 12/14/2023 07:10:04 Sensorineural hearing loss of bilateral ears 373744283 H90.3 [id number] MAI FULLER MA, [facility] [place] [address] [facility],[address] [address] [place] [address] 01/02/2024 11:01:33 01/02/2024 11:28:39 Sensorineural hearing loss of bilateral ears 276003971 H90.3 [id number] MAI FULLER MA, [facility] [place] [address] [facility],[address] [place] [address] 01/10/2024 15:53:56 01/15/2024 07:06:45 Mixed conductive and sensorineural hearing loss of right ear 4983466511 9105 H90.A31 Mixed cond uctive and sensorineural hearing loss, bilateral 084391696 H90.6 [id number] MAI FULLER MA, [facility] [place] [address] [facility],[address] [place] [address] 02/13/2024 10:01:00 02/14/2024 07:57:31 Mixed conductive and sensorineural hearing loss of right ear 6592365298 9105 H90.A31 [id number] MAI FULLER MA, CCC-A [place] [address] [facility],[address] [place] [address] 02/20/2024 09:01:19 02/21/2024 07:48:56 Mixed conductive and sensorineural hearing loss, bilateral 859567723 H90.6 [id number] ESTEPHANIA CLINE, [facility] [place] [address] [facility],[address] [place] [address] 02/23/2024 14:33:59 02/26/2024 08:45:33 Sensorineural hearing loss of bilateral ears 922935338 H90.3 [id number] MAI FULLER MA, [facility] [place] [address] [facility],[place] [address] [place] [address] 03/14/2024 12:58:07 03/16/2024 07:48:56 Otosclerosis 10466789 H80.93 [id number] MAI FULLER MA, [facility] [place] [address] [facility],[address] [place] [address] 03/26/2024 10:58:36 03/27/2024 08:26:53 Sensorineural hearing loss in left ear 4189152528 9109 H90.A22 [id number] MAI FULLER MA, CCC-A [place] [address] [facility],[place] [address] [place] [address] 06/04/2024 09:58:49 06/10/2024 14:52:03 Otosclerosis 76992442 H80.93 Health Concerns Section Related Observation LastModified by Organization Detai ls LastModified Time None Recorded Concern Status LastModified by Organization Details LastModified Time None Recorded Advance Directives Directive None Recorded Payers Encounter Date Sequence Insurance Name Policy Number Policy Johnson Covered Member ID Johnson Member ID Guarantor Name 02/20/2024 1 [place] [employer] Brett Conde Jr [id number] Brett Conde Jr 02/20/2024 2 [facility] INDEMNITY PLAN (MEDICARE SUPPLEMENT) [id number] Margie Conde [id number] Brett Conde Jr 02/23/2024 1 [place] [employer] Brett Conde Jr [id number] Brett Conde Jr 02/23/2024 2 [employer] INDEMNITY PLAN (MEDICARE SUPPLEMENT) [id number] Margie Rodgersard [id number] Brett Conde Jr 03/14/2024 1 [place] [facility] Brett Conde Jr [id number] Brett Conde Jr 03/14/2024 2 [employer] INDEMNITY PLAN (MEDICARE SUPPLEMENT) [id number] Margie P Elton [id number] Brett Conde Jr 03/26/2024 1 [place] [facility] Brett Conde Jr [id number] Brett Conde Jr 03/26/2024 2 [employer] INDEMNITY PLAN (MEDICARE SUPPLEMENT) [id number] Margie P Eltno [id number] Brett Conde Jr 06/04/2024 1 [place] [facility] Brett Conde Jr [id number] Brett Conde Jr 06/04/2024 2 [employer] INDEMNITY PLAN (MEDICARE SUPPLEMENT) [id number] Margie P Elton [id number] Brett Conde Jr Notes Date Note Type Note Provider Name and Address Organization Details Recorded Time 02/23/2024 text/html Patient recently fitted with Ruth L90 BTE devices and skeleton soft molds. The right earmold fits well but the left earmold is very difficult to insert and hurts if he wears it. He also complains of no output from the left device and that the right device keeps making beeping chimes. ESTEPHANIA CLINE, Jonathan [address], [address], [facility] - [facility] 02/23/2024 15:29:36 06/04/2024 text/html Longstanding hearing loss and longstanding hearing aid use. I believe his current set of Phonak Ruth's are his third set of hearing aids. MAI FULLER MA, CCC-A 100 [facility],[address], [address], [facility] - [facility] 06/04/2024 10:54:19
--- OUTSIDE RECORDS SUMMARY | 2024-06-19 10:10 | XMS_ITS | Clinical Summary ---
Author Organization [facility], Address [address] [address] Phone Care Team Providers Care Dedenter Name Role Phone Danilo Ann MD Primary Care Provider Allergies Active Allergy Reactions Criticality Noted Date Comments Meperidine Other (see comments) 06/02/2020 Tamsulosin Other (see comments) 06/02/2020 Medications Testosterone 10 MG/ACT (2%) gel Apply 5 Pump topically 1 (one) time each day 7 Active tadalafil (Cialis) 5 MG tablet Take 1 tablet by mouth 1 (one) time each day Active dronedarone (Multaq) 400 MG tablet Take 1 tablet by mouth 2 (two) times a day 8 Active metoprolol succinate XL (TOPROL-XL) 25 MG 24 hr tablet Take 1 tablet by mouth 2 (two) times a day 8 Active apixaban (Eliquis) 5 MG tablet Take 1 tablet by mouth 2 (two) times a day 7 Active 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 Take 1 capsule by mouth daily 0 Active sodium chloride 0.9 % solution Infuse 5-10 mL/hr into a venous catheter 0 Active irbesartan (AVAPRO) 75 MG tablet Take 75 mg by mouth daily Active Testosterone 20.25 MG/ACT (1.62%) gel APPLY 2 PUMPS OVER MAX AREA OF EACH UPPER ARM AND SHOULDER (4PUMPS EVERY MORNING ) 1 Active Active Problems Problem Noted Date Diagnosed Date 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 Last Assessment & Plan: Manual BP 135/100 - discussed with pt low NA diet, will discuss management with cardiology tomorrow. Resolved Problems Problem Noted Date Diagnosed Date Resolved Date Chronic kidney disease stage 3 06/02/2020 06/03/2020 Immunizations Name Administration Dates Next Due Influenza Split High Dose Preservative Free IM 1 04/29/2015,01/23/2016 Influenza, Recombinant, Quadrivalent, Pf 020 Influenza, Trivalent, Adjuvanted 01/04/2018 Influenza, Unspecified 12/11/2018 Pneumococcal Conjugate 13-Valent 05/30/2014 Pneumococcal Polysaccharide 03/15/2016 Tdap 04/15/2019 Zoster 03/23/2011 Family History Medical History Relation Comments Aneurysm Brother Asthma Brother Lung cancer Father Atrial fibrillation Mother Breast cancer Mother Heart disease Mother also aunt Hypertension Mother also aunt Valvular heart disease Mother Breast cancer Mother's Sister Diabetes Mother's Sister Heart disease Mother's Sister Hyperlipidemia Mother's Sister Hypertension Mother's Sister Relation Status Comments Brother Father Mother Mother's Sister Social History Tobacco Use Types Packs/Day Years Used Date Smoking Tobacco: Former Cigarettes 1.5 12 1 967 - 1979 Comments:Smoking History Inf o:Every day Alcohol Use Standard Drinks/Week Comments Yes 10 (1 standard drink = 0.6 oz pu re alcohol) Sex and Gender Information Value Date Recorded Sex Assigned at Not on file Legal Sex Male 4:30 PM EST Gender Identity Not on file Sexual Orientation Not on file 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 Not on file Not on file Not on file Last Filed Vital Signs Vital Sign Reading Time Taken Comments Blood Pressure 125/64 07/10/2017 12:00 PM EDT Pulse 68 07/10/2017 12:00 PM EDT Temperature 36.7 ??C (98 ??F) 07/10/2017 12:00 PM EDT Respiratory Rate 14 07/10/2017 12:00 PM EDT Oxygen Saturation - - Inhaled Oxygen Concentration - - Weight 78.9 kg (174 lb) 07/10/2017 12:00 PM EDT Height 177.8 cm (5' 10 ) 07/10/2017 12:00 PM EDT Body Mass Index 24.97 07/10/2017 12:00 PM EDT Plan of Treatment Health Maintenance Due Date Last Done Comments Influenza Vaccine (Season Ended) 2024 12/18/2019, 12/11/2018, 01/04/2018, Additional history exists Pneumococcal Vaccine: 65+ Years Completed 03/15/2016, 05/30/2014 Hepatitis B Vaccine Aged Out No longe r eligible based on patient's age to complete this topic Insurance MEDICARE [facility] Care Teams Dedenter Relationship Specialty Start Date End Date Danilo Ann MD PCP - General 01/15/19
== END 2024-06-19 10:06 | disposition home or self-care (01) ==
LOC: HO.HUSH 09:26
PROVIDERS: PCP Pediatrics; Visit Provider Urology
DX: N40.0 Benign prostatic hyperplasia without lower urinary tract symptoms (principal); N52.9 Male erectile dysfunction, unspecified; E29.1 Testicular hypofunction
CPT/HCPCS: 99213; G2211

== ENCOUNTER → 2024-06-19 09:25 | Outpatient (BNVA) | payer MEDICARE, OTHER, SELFPAY | PROVIDERS: PCP Pediatrics; Visit Provider Urology | DX: N40.0 Benign prostatic hyperplasia without lower urinary tract symptoms (principal); N52.9 Male erectile dysfunction, unspecified; E29.1 Testicular hypofunction | CPT/HCPCS: 99212 ==

== ENCOUNTER 2024-10-07 13:53 | Outpatient (REF) | payer MEDICARE, OTHER, SELFPAY ==
--- NOTE | ~2024-10-07 | US_ITS ---
EXAMINATION: US PELVIS LIMITED (BLADDER) CLINICAL INFORMATION: Poor urinary stream. COMPARISON: None available. TECHNIQUE: Real-time imaging of the bladder. FINDINGS: BLADDER: Fluid-filled. Bilateral ureteral jets are demonstrated. Prevoid bladder volume is 428 mL. Postvoid bladder volume is 26 mL. The prostate gland measures 5.6 x 4.4 x 5.6 cm. Volume: 72 cc. US/US bladder IMPRESSION: 26 cc residual urine in a post void image. Probable benign prostate hyperplasia.. Electronically signed by: Myles Shanks MD 10/07/2024 02:15 PM EDT
--- OUTSIDE RECORDS SUMMARY | 2024-10-07 14:38 | XMS_ITS | Clinical Summary ---
Author Organization [facility] Address [address] [place] [address] Care Team Providers Care Gauge Maker Name Role Phone Danilo Ann MD Primary Care Provider [phone] Social History Tobacco Use Types Packs/Day Years Used Date Smoking Tobacco: Never Assessed Sex and Gender Information Value Date Recorded Sex Assigned at Not on file Gender Identity Not on file Sexual Orientation Not on file Plan of Treatment Health Maintenance Due Date Last Done Comments Hepatitis C Screening 1950 COVID-19 Vaccine (#1) 01[birth year]15[birth year]1949 Depression Screening 1960 Preventative Health Evaluation 1966 Shingrix-Zoster Vaccine (1 of 2) 1998 Fall Risk Assessment 2013 RSV Adult > 60+ Yrs or (1 - 1-dose 75+ series) 07/16/2023 Influenza Vaccine (#1) 2024 0, 01/04/2018, 02/27/2016, Additional history exists DTap / Tdap / Td (2 - Td or Tdap) 04/15/2029 04/15/2019 Pneumococcal Vaccine Completed 03/15/2016, 05/31/19 15 Hepatitis B Vaccines Aged Out No long er eligible based on patient's age to complete this topic RSV Ped < 20 months Aged Out No longe r eligible based on patient's age to complete this topic Care Teams Gauge Maker Relationship Specialty Start Date End Date Danilo Ann MD [address] [place] [address] PCP - General Internal Medicine 01/14/19
--- OUTSIDE RECORDS SUMMARY | 2024-10-07 14:38 | XMS_ITS | Clinical Summary ---
Author Organization [facility] Address [address] [place] [id number] Phone Care Team Providers Care Painter Foreman Name Role Phone Amando Kat MD Unavailable [phone] Erickson Huitron MD Unavailable Sukhdev Boogie MD Unavailable [phone] Tavo Flores DO Primary Care Provider Tavo Flores DO Unavailable [phone] Allergies Active Allergy Reactions Criticality Noted Date Comments Meperidine Nausea and/or Vomiting,Other (See Comments) 03/24/2017 Tamsulosin Other (See Comments) 03/24/2017 Retrograde ejaculation Medications Medication-Danis e Text 2 puffs daily. Medical marijuana Active tadalafil (CIALIS) 5 MG tabletIndicati ons:benign prostatic hyperplasia with lower urinary tract sx,erectile dysfunction Take 1 tablet (5 mg total) by mouth daily as needed. Indications: enlarged prostate with urination problem, the inability to have an erection 90 tablet 3 04/03/19 20 Active Additional Information Patient taking differently:5 mg OralDaily, Indications: benign prostatic hyperplasia with lower urinary tract sx, erectile dysfunction, Reported on 09/09/2024 testosterone (ANDROGEL) 20.25 mg/1.25 gram (1.62 %) transdermal gel pump Apply 20.25 mg of testosterone topically daily. 4 pumps daily 06/13/19 20 Active tafamidis 61 mg Cap Take 1 capsule by mouth daily. 02/03/20 Active irbesartan (AVAPRO) 75 MG tablet Take 75 mg by mouth daily. Active torsemide (DEMADEX) 10 MG tablet Take 20 mg by mouth daily. 05/17/19 Active terazosin (HYTRIN) 5 MG capsule Take 1 capsule (5 mg total) by mouth nightly at bedtime. 12/21/19 Active cholecalcifero l (VITAMIN D3) 25 MCG (1,000 unit) tablet Take 1,000 Units by mouth daily. Active ELIQUIS 5 mg tablet TAKE 1 TABLET BY MOUTH TWICE A DAY 180 tablet 09/17/19 Active ELIQUIS 5 mg tablet TAKE 1 TABLET BY MOUTH TWICE A DAY 180 tablet 2 02/07/20 24 025 Discontinued amoxicillin-cl avulanate (AUGMENTIN) 875-125 mg per tablet Take 1 tablet (875 mg of amoxicillin total) by mouth 2 (two) times a day. 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 The patient has a uncomfortable sebaceous cyst that is relatively large on the left buttock. It is not infected currently. He is symptomatic from it however. He would like to have this excised. I believe that this should be excised in the operating room given the size and the depth of it. He will need to stop his Eliquis for 3 days prior to the procedure. He will need cardiac clearance and medical clearance prior to scheduling this procedure. Prediabetes 01/19/2021 Overview (09/16/2021): Last Assessment & Plan: Increased risk of diabetes noted with elevated hbA1c of 5.6 % Consider lifestyle modifications with behavior modification, dietary therapy, and physical activity. Abnormal blood level of uric acid 01/19/2021 Overview (09/16/2021): Last Assessment & Plan: We do note elevated uric acid level (7.9 mg/dL) is elevated without any outward symptoms, which places him at a high risk for developing gout in the future. If he does exhibit symptoms of intense joint pain that subsides to discomfort, inflammation, and redness consider seeking treatment immediately for the best outcome. 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 Conde was seen by Dr. Damion Hannah, our webmaster and Dr. Sukhdev Boogie, our bee keeper, please see their attached consults regarding their clinical findings. Mr. Conde was discussed at the amyloidosis clinical team meeting. In summary, his echocardiographic findings are similar to last year and he does not appear significantly volume overloaded, although he does have mild peripheral edema. Dr. Boogie suspects that he will require more frequent diuretic use, likely furosemide 20 mg daily. Additionally, patients with cardiac amyloidosis often do not tolerate treatment with diltiazem, as this complexes with amyloid fibrils in the heart, resulting in local diltiazem toxicity. As such, we recommend weaning off diltiazem. The decline in eGFR likely reflects cardiorenal syndrome, with intensification of diuretics and limited cardiac output. Our recommendations: 1). Continue tafamidis 2).Continue furosemide, may need to increase in future 3). Wean off diltiazem (please see Dr. Boogie note for other drug options) 4). Elevated HbA1c noted, continue following with PCP for management 5). Monitor home BP, and daily weights It was a pleasure to see Mr. Conde. We look forward to seeing him again at the [facility] in one year. Meralgia paresthetica, right 01/24/2020 Primary hypertension 01/20/2020 Overview (09/16/2021): Last Assessment & Plan: Manual BP 135/100 - discussed with pt low NA diet, will discuss management with cardiology tomorrow. Last Assessment & Plan: Manual BP 135/100 - discussed with pt low NA diet, will discuss management with cardiology tomorrow. Last Assessment & Plan: Manual BP 135/100 - discussed with pt low NA diet, will discuss management with cardiology tomorrow. 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 Is unable to continue same level of activity as prior to diagnosis, but has been able to keep up some biking. Is overall worried about his prognosis, but feels at least recently has not changed much. Advised continue following with specialist cardiology clinic, let them know if any significant changes. We will continue to monitor his health and wellness. 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 He was referred to [facility] hypertrophy clinic Dr. Fredis Naqvi. However he has not followed through with the appointment yet. I will have our office staff arrange for his referral. I strongly encouraged him to stay on metoprolol. He has had it titrated down to 12.5 mg daily secondary to side effects of bradycardia and fatigue. Assessment & Plan (08/22/2019 8:19 PM EDT): Asymmetric septal hypertrophy with septal thickness of 20 to 29 mm last assessed on 08/20/2019 echocardiogram. Referral placed for consult with hypertrophic cardiomyopathy clinic at [facility]. Elevated BP without diagnosis of hypertension Assessment & Plan (10/08/2019 8:10 AM EDT): Blood pressure goal of less than 130/90. He is mostly at goal throughout the day except reports of morning blood pressure readings in the range of 140/90. He is not interested in initiating any antihypertensive therapy he will continue with diet and exercise. Assessment & Plan (08/22/2019 8:26 PM EDT): Elevated blood pressure on arrival to the office With reading of 152/90. Repeat blood pressure of 128/80. H reports elevated blood pressure readings in the morning only in the range of 160/90 with repeat blood pressure in the afternoon in the range of 122 -130/60-70. Recent decrease in his metoprolol dose from 50 to 25 mg. We discussed Dash, stress management, patient agrees to pursue sleep medicine referral to rule out ESVIN. His blood pressure goal of less than 130/90. Today patient is not interested in increasing his beta-maya or even discuss adding additional anti-hypertensives to his medication list. He wants to try recommendations for nonpharmacological methods to lower blood pressure. He understands that he needs to report readings that are consistently above goal. Atrial flutter 2019 Functional weakness 06/13/2019 Pre-operative cardiovascular examination 019 Assessment & Plan (01/18/2019 4:37 PM EST): He has No history of ischemic heart disease, no history of congestive heart failure, no cerebrovascular disease, he is not diabetic, and his creatinine has been stable at 1.4. According to the revised cardiac risk index, he is at low risk for cardiac complications. He is in atrial fibrillation today despite being on rhythm control with multaq. He is anticoagulated on Eliquis. Given his history of hypertrophic cardia myopathy, we are recommending that he be bridged with Lovenox while off of his Eliquis. He should hold his Eliquis for 3 days prior to the surgery. His surgery is on Monday. He will take his last dose of Eliquis tonight and start Lovenox tomorrow. He should hold his Lovenox the morning of the surgery. He can restart his Eliquis as soon as he has been cleared to do so by his surgeon. Would continue metoprolol and multaq perioperatively. He has hypertrophic cardiomyopathy with no outflow tract obstruction. However, would minimize exposure to agents that would reduce afterload reduction which could create obstruction. Adjustment disorder 09/24/2018 Malnutrition 02/21/2018 Overview (02/21/2018): He had most of his colon removed he is not absorbing nutrients. Assessment & Plan (03/09/2018 2:08 PM EST): He should try to take additional intake of trace elements including zinc and chromium and magnesium. Assessment & Plan (02/21/2018 12:43 PM EST): Labs for nutritional abnormalities. History of partial colectomy 02/06/2018 Overview (02/06/2018): colon polyposis Serum albumin decreased 01/29/2018 Night sweats 01/29/2018 Primary male hypogonadism 03/24/2017 Overview (03/09/2018): Low testosterone on gel Assessment & Plan (03/09/2018 2:10 PM EST): He should take DHEA as DHEA is on has multiple roles. It may help him increase his testosterone it may also prevent the body from stealing testosterone to make make cortisol his cortisol is slightly elevated. 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 rate control strategy with Toprol 12.5 mg daily recently decreased secondary to bradycardia and fatigue. Anticoagulated with Eliquis p.o. twice daily. I encouraged again for patient to consider sleep medicine referral however he is stating I am going to do it . Assessment & Plan (08/22/2019 8:15 PM EDT): Persistent atrial fibrillation with failed Multaq therapy. He was loaded with amiodarone and cardioverted sinus rhythm however during his last visit it was discontinued secondary to side effects. His metoprolol dose was increased to 50 mg however it had to be decreased secondary to complaints of bradycardia and fatigue. He has been anticoagulated with Eliquis 5 mg p.o. twice daily. He has never been screened for ESVIN. He agreed to pursue sleep medicine referral today order placed. Assessment & Plan (08/08/2019 10:03 AM EDT): Has persistent atrial fibrillation and has failed Multaq. Was loaded with amiodarone and cardioverted to sinus rhythm. Based on his description his pulse is quite steady and he may be in sinus rhythm but he does not feel any different and actually feels more short of breath than before. We talked about amiodarone and side effects we talked about Tikosyn and sotalol and at this time we have decided to abandon rhythm control strategy as his symptoms are worse on antiarrhythmics at this point. We will stop amiodarone and increase the metoprolol to 50 mg XL once a day and see how he does. There is always option of using Tikosyn or sotalol in the future if need be. Assessment & Plan (07/25/2019 4:43 PM EDT): Persistent atrial fibrillation with rapid ventricular response as well as symptomatic intolerance which goes along with his hypertrophic cardiomyopathy. He also is very active for his age and does extremes of exercise and mountain biking which makes his heart rate go up to 200 bpm as recorded on Holter monitor. I think it is best for him to maintain sinus rhythm which is probably be much safer as well as symptomatic. I am worried with his extreme exercise and A. fib with RVR with his hypertrophic cardiomyopathy he may be at risk of significant arrhythmic complications. From that perspective we will continue with amiodarone I will arrange for a cardioversion as an outpatient. Patient was present at the interview. I went over details of amiodarone therapy, side effects of it as well as long-term possibilities including ablation (which she does not want), other medications like Tikosyn and sotalol. I also went over need for him to do his exercise under moderation and not go to extreme as he has had a syncopal episode with it. Assessment & Plan (06/27/2019 2:20 PM EDT): Recurrence of atrial fibrillation despite being on Multitak and metoprolol. As described above due to hypertrophic cardiomyopathy we will start him on amiodarone 400 twice daily for 2 weeks and then 200 once a day thereafter. He will come to our office for ECG in after 2 weeks and if he is still in A. fib will arrange for an outpatient cardioversion. Due to his hypertrophic cardiomyopathy he probably has increased symptoms of atrial fibrillation with loss of atrial kick and tachycardia. I also asked him to reduce his level of exercise that he performs which is probably not helping him to keep in sinus rhythm. Assessment & Plan (04/25/2019 11:18 AM EST): Persistent AF and cardioverted back to sinus rhythm on Multitak with some sinus bradycardia and sick sinus syndrome at baseline. We will continue to monitor. Is on anticoagulation with Eliquis. Assessment & Plan (02/21/2019 10:40 AM EST): Now he has switched back from sinus rhythm to atrial fibrillation. Symptomatology is questionable. Based on his description I think he does get more fatigue and decrease in exercise capacity though he is not very convincing about it. At this time I will not leave him on rate control strategy. We will discontinue Multaq and do a Holter monitor for evaluation of rate control. Assessment & Plan (08/16/2018 10:46 AM EDT): Persistent atrial fibrillation status post cardioversion and is currently maintaining sinus rhythm quite well on 25 mg daily of metoprolol and 400 twice a day Multaq. He does not feel much difference in atrial fibrillation versus sinus rhythm on usual activities but he feels a significant difference when he is biking. We will continue the same medications for now. 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 Is complaining of some tiredness and fatigue and not achieving target exercise rates when he bikes and will reduce the metoprolol to 25 twice a day. We'll give him 3 months to assess his symptomatology in sinus rhythm versus A. fib and then decide a future course. Recent cardioversion on January 20 and cannot stop anticoagulations until February 19, 2017. Also surgeries will have to be postponed. I would recommend stopping of Eliquis 4 days before the surgery when the timing is appropriate. Hypertrophic cardiomegaly 01/20/2017 Assessment & Plan (08/08/2019 10:02 AM EDT): Hypertrophic cardiomyopathy with septum around 2.5 cm on most recent echocardiogram. Does have symptoms of not dyspnea on exertion and shortness of breath which is new. We will have him evaluated by Dr. Shantanu Hyde at [facility] for the same. Increase metoprolol to 50 mg XL daily Assessment & Plan (07/25/2019 4:41 PM EDT): He does not tolerate beta-maya too much due to his fatigue associated with it and does not want to go up on the doses of metoprolol. He is on 25 mg we will continue that for now. His ejection fraction is preserved. He does not meet criteria for ICD implantation at this time. Assessment & Plan (04/25/2019 11:17 AM EST): Hypertrophic cardiomyopathy with recent echocardiogram showing similar findings as before. Was in atrial fibrillation with rate uncontrolled. Now cardioverted to sinus rhythm and feeling better Assessment & Plan (02/21/2019 10:40 AM EST): Hypertrophic cardiomyopathy with recent echocardiogram showing similar findings as before. Now in atrial fibrillation and rate control will be important for minimizing symptoms. Assessment & Plan (01/18/2019 4:38 PM EST): He has hypertrophic cardiomyopathy with no outflow tract obstruction. He has not had any heart failure symptoms, syncope, or any arrhythmias. He has not met criteria for ICD implantation. He is a very active with no symptoms. Continue beta-maya. He is scheduled to have a repeat echocardiogram prior to his next follow-up with Dr. Townsend next month. Assessment & Plan (08/16/2018 10:45 AM EDT): Hypertrophic cardiomyopathy which is adequately managed at this point. No signs of heart failure syncope or arrhythmias. He does not meet any criteria for ICD implantation. He is on beta maya but not tolerating high doses very well. We will the doses of metoprolol as above and see how he does. He needs a repeat echocardiogram to reevaluate his EF and myocardial thickness Assessment & Plan (09/14/2017 10:25 AM EDT): Hypertrophic cardiomyopathy which is adequately managed at this point. No signs of heart failure syncope or arrhythmias. He does not meet any criteria for ICD implantation. He is on beta maya but not tolerating high doses very well. We will the doses of metoprolol as above and see how he does. Assessment & Plan (05/18/2017 12:30 PM EST): Hypertrophic cardiomyopathy which is adequately managed at this point. No signs of heart failure syncope or arrhythmias. He does not meet any criteria for ICD implantation. He is on beta maya but not tolerating high doses very well. We will the doses of metoprolol as above and see how he does. He saw Dr. Mcclain for the same. Assessment & Plan (01/26/2017 1:31 PM EST): Hypertrophic cardiomyopathy which is adequately managed at this point. No signs of heart failure syncope or arrhythmias. He does not meet any criteria for ICD implantation. He is on beta maya but not tolerating high doses very well. We will get a trial of lordosis and see how he does. He follows with Dr. Mcclain for the same. 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 Today, he is in atrial fibrillation despite being on rhythm control. He is completely asymptomatic and unaware. He is anticoagulated on Eliquis. He will be holding his Eliquis for his surgery. We will bridge him given his hypertrophic cardiomyopathy. For now he should continue his multaq. He will meet with Dr. Townsend next month to reassess his atrial fibrillation management. He may require an event monitor to see if his atrial fibrillation is persistent or paroxysmal. Assessment & Plan (09/14/2017 10:23 AM EDT): Persistent atrial fibrillation status post cardioversion and is currently maintaining sinus rhythm quite well on 25 mg daily of metoprolol and 400 twice a day Multaq. He does not feel much difference in atrial for ablation versus sinus rhythm and atrial activities but he feels a significant difference when he is biking. We will continue the same medications for now. 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 We did briefly discuss ablation and he is not interested. I will set him up for a cardioversion at [facility]. He will need to wait 2.5 weeks as he missed a dose of his eliquis which he should be on for four weeks uniterupted. He will get pre procedure labs one week prior to the CV. He is scheduled to return to the office in 4 weeks to discuss further management of his atrial rhythm with Dr. Townsend. Assessment & Plan (05/18/2017 12:29 PM EST): Persistent atrial fibrillation status post cardioversion and is currently maintaining sinus rhythm quite well on 25 mg twice a day of metoprolol and 400 twice a day Multaq. Is complaining of some tiredness and fatigue and not achieving target exercise rates when he bikes and I will further reduce the metoprolol XL to 25 once a day. We'll give him 3 months to assess his symptomatology in sinus rhythm versus A. fib and then decide a future course. Can proceed with his ear surgery and if anticoagulation needs to be stopped. Eliquis should be stopped 4 days before his procedure Encounters Date Type Department Care Team Description 09/15/[address] [place] [address] Tavo Flores, Medication Refill 09/12/[address] [place] [address] Tavo Flores, DO Cardiology Clearance for Surgery 09/09/2024 1:00 PM EDT Office Visit [address] [place] [address] Tavo Flores, Other pneumonia, unspecified organism (Primary Dx); Cardiac amyloidosis 09/02/2024 1:30 PM EDT Office Visit [facility] [address] [place] [address] Susi Ortiz MD Other pneumonia, unspecified organism (Primary Dx) 09/02/2024 Telephone [facility] [address] [place] [address] Tavo Flores, Triage (Green call - Weight loss, productive cough, low grade fever, ) 08/16/2024 Telephone [facility] [address] [place] [address] Tavo Flores, Referral 08/08/2024 Telephone [facility] [address] [place] [address] Ekaterina Aguila 07/26/2024 Telephone [facility] [address] [place] [address] Tavo Flores, from Last 3 Months Immunizations Immunization Administration Dates Next Due COVID-19 (Pre-01/02) Pfizer Vaccine, mRNA, PF Influenza High-Dose Quadrivalent Preservative Fr ee IM 12/29/2021 Influenza High-Dose Trivalent Preservative Free IM 02/27/2016,01/23/2016 Influenza Quadrivalent Adjuvanted Preservative F ree IM 12/15/2020 Influenza Recombinant Jimenez valent Preservative Free IM 12/18/2019 Influenza Trivalent Adjuvanted Preservative free IM 01/04/2018 Influenza, Unspecified Formulation 12/11/2018 Pneumococcal conjugate PCV13 05/30/2014 Pneumococcal polysaccharide PPSV23 03/15/2016 Tdap 04/15/2019 Zoster live 03/23/2011 Family History Medical History Relation Comments Aneurysm Brother Asthma Brother Colon polyps Father polyposis Hearing loss Father Lung cancer Father smoker Anxiety disorder Maternal Aunt Breast cancer Maternal Aunt Diabetes type II Maternal Aunt Hyperlipidemia Maternal Aunt Hypertension Maternal Aunt Parkinson's disease Maternal Aunt Psychiatric disorder Maternal Grandmother Hearing loss Maternal Uncle Atrial fibrillation Mother Breast cancer Mother Hearing loss Mother Hypertension Mother Valvular heart disease Mother Colon cancer Neg Hx Kidney failure Neg Hx Prostate cancer Neg Hx Relation Status Comments Brother Father of lung can cer Maternal Aunt Maternal Grandmother Maternal Uncle Mother Alive Social History Tobacco Use Types Packs/Day Years Used Date Smoking Tobacco: Former Cigarettes 1.5 12 1 967 - 1978 Smokeless Tobacco: Never Tobacco Cessation:Counseling Given: Not Answered Alcohol Use Standard Drinks/Week Comments Yes 10 (1 standard drink = 0.6 oz pu re alcohol) 10 Education Answer Date Recorded Are you interested in more education? Not on alfred e 07/24/2022 Are you concerned about learning? Not on file 07/24/2022 No 07/24/2022 No 07/24/2022 Digital Access Answer Date Recorded No 08/07/2022 No 08/07/2022 Reliable internet access at home? Not on file 08/07/2022 Device with a working camera? Not on file Intimate Partner Violence Answer Date R ecorded Denied Basic Needs Not on file 05/19/2022 In the past 12 months have y ou been in a relationship with a person who hurts, threatens, or tries to control you? No 05/19/2022 Worried food would run out Not on file 05/19 In the past 12 months have y ou been in a relationship with a person who hurts, threatens, or tries to control you? No 05/19/2022 Sex and Gender Information Value Date Recorded Sex Assigned at Male 03/21/2019 1:24 PM EST Legal Sex Male 5:19 PM EST Gender Identity Male 03/21/2019 1:24 PM EST Sexual Orientation Straight 03/21/2019 1: 24 PM EST Last Filed Vital Signs Vital Sign Reading Time Taken Comments Blood Pressure 128/62 09/09/2024 1:12 PM EDT Pulse 68 09/09/2024 1:12 PM EDT Temperature 36.3 C (97.3 F) 09/09/2024 1:12 PM EDT Respiratory Rate 15 08/02/2019 11:13 AM EDT Oxygen Saturation 99% 09/09/2024 1:12 PM EDT Inhaled Oxygen Concentration - - Weight 73.2 kg (161 lb 6.4 oz) 09/09/2024 1:12 P M EDT Height 172.7 cm (5' 8 ) 06/30/2024 9:42 AM EDT Body Mass Index 24.54 06/30/2024 9:42 AM EDT Plan of Treatment Upcoming Encounters Date Type Department Care Team (Late st Contact Info) Description 12/05/2024 8:00 AM EDT Office Visit [facility] [address] [place] [address] Tavo Flores DO [address] [facility], [address] [place] [address] [email or web address] Health Maintenance Due Date Last Done Comments ZOSTER VACCINES (2 of 3) 05/18/2011 03/23/2011 DEPRESSION SCREENING 05/20/2023 05/19/2022, 03/26/19 19 RSV VACCINE (1 - 1-dose 75+ series) 07/16/2023 CREATININE LEVEL 02/07/2024 02/06/2023, , 04/28/2021, Additional history exists POTASSIUM LEVEL 02/07/2024 02/06/2023, 04/13, 04/28/2021, Additional history exists COVID-19 VACCINE ( season) 2024 01/03/2024, 01/12/2022, 01/06/2021, Additional history exists LIPID PANEL 01/19/2025 03/23/2016 Postponed from 03/23/2021 (Not Clinically Appropriate) BLOOD PRESSURE 03/11/2025 09/09/2024 Adult Td,Tdap Booster 04/15/2029 04/15/2019 PNEUMOCOCCAL VACCINES (50+ years) Completed 03/15/2016, 05/30/2014 HEPATITIS C SCREENING Completed 04/17/2019, 020 SMOKING STATUS SCREENING (Once After 26 Yrs) Completed 09/09/2024 HEPATITIS A VACCINES Aged Out No long er eligible based on patient's age to complete this topic HIB VACCINES Aged Out No longer eligi ble based on patient's age to complete this topic MENINGOCOCCAL VACCINES (ACWY) Aged Out No longer eligible based on patient's age to complete this topic MENINGOCOCCAL VACCINES (B) Aged Out N o longer eligible based on patient's age to complete this topic Medical Devices Implanted Type Area Dressed Poultry Grader Device Identifier Shelf Expiration Date Model / Serial / Lot Left Ear Hips Shoulder Procedures Procedure Name Priority Date/Time Associated Diagnosis Comments BASIC METABOLIC PANEL Routine 02/06/2023 8:24 AM EST Medicare annual wellness visit, subsequent HEPATITIS C ANTIBODY, QUALITATIVE Routine 04/17/2019 8:57 AM EST Routine general medical examination at a health care facility from Last 3 Months or Most Recently Relevant to Health Maintenance Results * (ABNORMAL) Basic metabolic panel (02/06/2023 8:24 AM EST) SODIUM 139 133 - 146 mmol/L [facility] CHLORIDE 101 96 - 108 mmol/L [facility] POTASSIUM 4.9 3.3 - 5.1 mmol/L [facility] CO2 29 21 - 35 mmol/L [facility] BUN 31(H) 6 - 19 mg/dL [facility] CREATININE 1.60(H) 0.5 - 1.5 mg/dL [facility] GLUCOSE 102(H) 70 - 99 mg/dL [facility] CALCIUM 9.4 8.4 - 10.3 mg/dL [facility] EGFR 45(L) >59 mL/min/1.7 3m2 [facility] Comment:Estimated glomerular filtration rate calculated using the CKD-EPI refit equation. ANION GAP 14 10 - 20 mmol/L [facility] Blood 02/06/2023 8:24 AM EST 02/06/2023 8:27 AM EST us Tavo Flores DO LAB BLOOD ORDERABLES Fi nal Result [facility] [address] [place] [address] * Hepatitis C antibody, qualitative (04/17/2019 8:57 AM EST) HCV NON-REACTIV E NON-REACTI VE [facility] Blood 04/17/2019 8:57 AM EST 04/17/2019 9:00 AM EST Danilo Ann MD LAB BLOOD ORDERABLES Final Result [address] [address] from Last 3 Months or Most Recently Relevant to Health Maintenance Insurance MEDICARE PART A & B [facility] MEDICARE SUPPLEMENT MEDICARE PART A & B [facility] MEDICARE SUPPLEMENT MEDICARE PART A & B [facility] EXTENSION MEDICARE SUPPLEMENT [place], [place] MEDICARE PART A & B [employer] MEDICARE SUPPLEMENT MEDICARE PART A & B [facility] EXTENSION MEDICARE SUPPLEMENT MEDICARE PART A & B [facility] EXTENSION MEDICARE SUPPLEMENT MEDICARE PART A & B [employer] EX[employer]ENSION MEDICARE SUPPLEMENT MEDICARE PART A & B [employer] MEDICARE SUPPLEMENT MEDICARE PART A & B Member Subscriber Plan / Payer (Ef fective 2013-Present) Name:Brett Conde Member ID:[id number] Relation to Subscriber:Self Name:Brett Conde Subscriber ID:[id number] Payer ID:[id number] Group ID:Not on file Type:Medicare Address: [employer] [facility] [address] [address] [facility] EXTENSION MEDICARE SUPPLEMENT Advance Directives For more information, please contact: [phone] (9AM - 5PM [facility], Monday-Monday) * Full Code (Presumed) (Latest Code Status on File) Date Activated Date Inactivated Comments 08/31/2017 7:22 AM 09/01/2017 4:20 AM Care Teams Painter Foreman Relationship Specialty Start Date End Date Tavo Flores DO [address] [place] [address], [address] [place] [address] PCP - General Internal Medicine 09/16/21 Amando Kat MD [address] [place] [address] [address] [place] [address] Cardiology 04/17/20 Erickson Huitron MD [address] [place] [address] [address] [place] [address] Urology 04/17/20 [place] [address] Internal Medicine 04/26/21 Tavo Flores DO [address] [place] [address], [address] [place] [address] [email or web address] Insurance Assigned Provider 06/16/24 Additional Source Comments The information contained in this document represents components of the legal health record. It is not the complete legal health record.[facility]
--- OUTSIDE RECORDS SUMMARY | 2024-10-07 14:38 | XMS_ITS | Data Portability ---
Author Organization [place] - [facility], Allergy Address [address] [place] [address] Care Team Providers Care Bindery Machine Operator Name Role Phone DANIEL EVANGELISTA Primary Care [...] to fit new molds. Mai Fuller MA CCC-A vanesa Not available 03/18/2024 11:11:56 02/23/2024 02/23/2024 [...] were unable to pair it to the [employer] [place] application. Patient does not appear bothered by this but I encouraged him to try pairing at home after we called [employer] and they explained that a better cell phone signal may be necessary. We can revisit this at a later appointment. Regarding the earmold, a new impression was taken of his left ear and sent with the earmold to [facility] for remake. Patient has a scheduled appointment [...] reported satisfaction with sound quality and output. [email or web address] Not available 02/23/2024 15:01:28 03/14/2024 03/14/2024 03-14-2024 [...] hearing aids. Patient was given paperwork for [employer] and I filled out the areas pertaining to the hearing aid purchase. He understands if there is a problem with reimbursement, he needs to call the insurance company himself. He has the date for warranty expiration. He understands we would like to return the aids to [employer] prior to expiration, to have the aids cleaned, checkes, and THE BATTERIES REPLACED. Return PRN Hearing Aid Fitting Details Date: Marriage Therapist & Model: [employer] Ruth L 90-DC's Color: Silver ceballos Ear coupling: tone hook Serial Numbers Right: [id number] Left: [id number] Warranty Expiration: 03-05-2027 Accessories: Skeleton molds with [...] low so he placed it in the clinical informaticist for a few seconds, then was able to continue using is for the rest of the day. For this reason, I suggested we send it to [employer] to be checked. He may be having [...] he can put the aid(s) in the clinical informaticist for 30-60 minutes and will get hours more of battery life. AND, he actually stated that he likes the aids and is doing well with them. Mai Fuller MA, CCC-A vanesa Not available 06/04/2024 10:53:32 Plan of Treatment [...] sensorin eural hearing loss of right ear [id number] 105 Active 2016 Mixed 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, unilater al, right ear with restrict ed hearing on the contrala teral side; Note: Date Diagnose d: 7 11:57 AM (H90.A31 ) Not Available [facility] 4 03:13:03 Sensorin eural hearing loss in left ear 43371281905 109 Active 2016 Sensorin eural hearing loss, unilater al, left ear, with restrict ed hearing on the contrala teral side; Note: Date Diagnose d: 7 11:57 AM (H90.A22 ) Not Available [facility] 4 03:13:04 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 23021681 Completed 201710/13/2023 Otoscler osis involvin g oval window, oblitera tive, right ear; Note: Date Diagnose d: 05/15/2017 12:06 PM (H80.11) Not Available [facility] 4 03:13:03 Otoscler osis 46000281 Completed 201710/13/2023 Unspecif ied otoscler osis, left ear; Note: Date Diagnose d: 05/15/2017 12:06 PM (H80.92) Unspec ified otoscler osis, bilatera l; Note: Date Diagnose d: 7 11:58 AM (H80.93) ; Start Date : 09/01/19 Not Available [facility] 4 03:13:04 Follow-u p visit Active 2017 Medical surveill ance followin g complete d treatmen t; Note: Date Diagnose d: 8 10:30 AM (Z09) Not Available [facility] 4 03:13:03 Abnormal auditory percepti on 88021869 Active 2017 Other abnormal auditory percepti ons, right ear; Note: Date Diagnose d: 8 2:49 PM (H93.291 ) Not Available [facility] 4 03:13:04 Mixed 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, bilatera l 140518088 Active 2019 Mixed 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, bilatera l; Note: Date Diagnose d: 0 3:55 PM (H90.6) Not Available [facility] 4 03:13:05 Acute serous otitis media of left ear 21349390747 45584 Completed 201910/13/2023 Acute serous otitis media, left ear; Note: Date Diagnose d: 0 4:54 PM (H65.02) Not Available [facility] 4 03:13:04 Impacted cerumen in left ear 63862254534 84866 Active 2019 Impacted cerumen, left ear; Note: Date Diagnose d: 0 8:44 AM (H61.22) Not Available [facility] 4 03:13:04 Otoscler osis 23493600 Active 2023 HAILEE WOODRUFF MD [address] [place] [address],[place] [address], [place], [address] , [facility] - [facility] 4 12:52:57 Sensorin eural hearing loss of bilatera l ears 917804955 Active 2023 MAI FULLER MA, CCC-A [address] [place] [address],[place] [address], [place], [address] , [facility] - [facility] 15:18:30 Problem Notes None recorded. Procedures Surgical History Date Name Laterality Status Provider Name and Address Organization Details Recorded Time 11/29/2023 Comp Audio with Tymps - 18082 & 36223 completed MAI FULLER [place], [facility] [address] [email or web address] [address], [place], [address], [facility] 11/29/2023 09:33:52 Imaging Results None recorded. Procedure [...] 24 hr 07/26 completed Medicati on ID: [id number] D uration Value: 90 Reason: () Brand Name: metoprol ol succinat e Send Method: E-Prescr ibed Sub s Allowed: subs OK Speci al Instruct ion: TAKE 1 TABLET BY MOUTH TWICE A DAY Medi cationGe nericNam e: metoprol ol succinat e Not Available Not Available Not Available hydrocodo ne 5 mg-acetam inophen 325 mg tablet 10/17 completed Medicati on ID: [id number] D uration Value: 3 Reason: () Brand [...] by mouth 11/28 completed Medicati on ID: [id number] D uration Value: 3 Prescri bed By [...] eye drops 11/28 completed Medicati on ID: [id number] D uration Value: 10 Prescri bed By [...] mg capsule 2019 active Medicati on ID: [id number] D uration Value: 5 Brand Name: oseltami [...] 24 hr 2017 active Medicati on ID: [id number] D uration Value: 30 Brand Name: metoprol [...] mg tablet 2017 active Medicati on ID: [id number] D uration Value: 45 Brand Name: Multaq S end Method: E-Prescr ibed Sub s Allowed: subs OK Speci al Instruct ion: TAKE 1 TABLET BY MOUTH TWICE A DAY WITH MEALS Me dication GenericN kobe: Multaq Not Available Not Available Not Available testoster one 10 mg/0.5 gram/actu ation transderm al gel pump 11/28 completed Medicati on ID: [id number] D uration Value: 24 Brand Name: oren fan Sen chuy Method: E-Prescr ibed Sub s Allowed: subs [...] SNOMED-CT Code Diagnosis ICD10 Code Diagnosis Note [id number] HAILEE WOODRUFF MD [facility] [address] [address] 11/29/2023 08:20:20 11/29/2023 09:56:38 Otosclerosis 15907438 H80.93 Sensorineu ral hearing loss in left ear 5033365085 9109 H90.A22 Audiologic al evaluation results: Right ear: Mild to profound mixed hearing loss with excellent word recognitio n. Left ear: mild sloping to profound SNHL with excellent word recognitio n. Tympanomet ry: Right Ear:Type Ad Left Ear:Type A Mixed cond uctive and sensorineural hearing loss of right ear 5198347905 9105 H90.A31 [id number] MAI FULLER [place], [facility] [address] [address] 11/29/2023 09:33:21 11/29/2023 11:53:20 Sensorineural hearing loss in left ear 1632680785 9109 H90.A22 Audiologic al evaluation results: Right ear: Mild to profound mixed hearing loss with excellent word recognitio n. Left ear: mild sloping to profound SNHL with excellent word recognitio n. Tympanomet ry: Right Ear:Type Ad Left Ear:Type A Mixed cond uctive and sensorineural hearing loss of right ear 3484222295 9105 H90.A31 MAI FULLER MA, [facility] [place] [address] [facility],[address] [place] [address] 12/13/2023 13:05:09 12/14/2023 07:10:04 Sensorineural hearing loss of bilateral ears 921081174 H90.3 [id number] MAI FULLER MA, [facility] [place] [address] [facility],[address] [place] [address] 01/02/2024 11:01:33 01/02/2024 11:28:39 Sensorineural hearing loss of bilateral ears 307635686 H90.3 [id number] MAI FULLER MA, [facility] [place] [address] [facility],[address] [place] [address] 01/10/2024 15:53:56 01/15/2024 07:06:45 Mixed conductive and sensorineural hearing loss of right ear 4493487645 9105 H90.A31 Mixed cond uctive and sensorineural hearing loss, bilateral 133000831 H90.6 [id number] MAI FULLER MA, [facility] [place] [address] [facility],[address] [place] [address] 02/13/2024 10:01:00 02/14/2024 07:57:31 Mixed conductive and sensorineural hearing loss of right ear 6228891392 9105 H90.A31 12554 MAI FULLER MA, [facility] [place] [address] [facility],[address] [place] [address] 02/20/2024 09:01:19 02/21/2024 07:48:56 Mixed conductive and sensorineural hearing loss, bilateral 083774075 H90.6 [id number] ESTEPHANIA CLINE [facility] [place] [address] [facility],[address] [place] [address] 02/23/2024 14:33:59 02/26/2024 08:45:33 Sensorineural hearing loss of bilateral ears 266153084 H90.3 [id number] MAI FULLER MA, [facility] [place] [address] [facility], [address] [place] [address] 03/14/2024 12:58:07 03/16/2024 07:48:56 Otosclerosis 02496581 H80.93 [id number] MAI FULLER MA, [facility] [place] [address] [facility] [address] [place] [address] 03/26/2024 10:58:36 03/27/2024 08:26:53 Sensorineural hearing loss in left ear 2868416042 9109 H90.A22 [id number] MAI FULLER MA, [facility] [place] [facility] [place] [address] [facility] [address] [place] [address] 06/04/2024 09:58:49 06/10/2024 14:52:03 Otosclerosis 77934668 H80.93 Health Concerns Section Related Observation LastModified by Organization Detai ls LastModified Time None Recorded Concern Status LastModified by Organization Details LastModified Time None Recorded Advance Directives Directive None Recorded Payers Insurance Date Sequence Insurance Name Policy Number Policy Johnson Covered Member ID Johnson Member ID Guarantor Name 06/04/2024 1 [place] [employer] Brett Conde Jr [id number] Brett Conde Jr 06/10/[address] [facility] INDEMNITY PLAN (MEDICARE SUPPLEMENT) [id number] Margie Conde [id number] Brett Conde Jr
--- OUTSIDE RECORDS SUMMARY | 2024-10-07 14:38 | XMS_ITS | Clinical Summary ---
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 Not on file Not on file Not on file Last Filed Vital Signs Vital Sign Reading Time Taken Comments Blood Pressure 125/64 07/10/2017 12:00 PM EDT Pulse 68 07/10/2017 12:00 PM EDT Temperature 36.7 C (98 F) 07/10/2017 12:00 PM EDT Respiratory Rate 14 07/10/2017 12:00 PM EDT Oxygen Saturation - - Inhaled Oxygen Concentration - - Weight 78.9 kg (174 lb) 07/10/2017 12:00 PM EDT Height 177.8 cm (5' 10 ) 07/10/2017 12:00 PM EDT Body Mass Index 24.97 07/10/2017 12:00 PM EDT Plan of Treatment Health Maintenance Due Date Last Done Comments Influenza Vaccine (#1) 2024 0, 12/11/2018, 01/04/2018, Additional history exists Pneumococcal Vaccine: 50+ Years Completed 03/15/2016, 05/30/2014 Pneumococcal Vaccine: Peds (0 to 5 Years) and At-Risk Patients (6 to 49 Years) Discontinued 03/15/2016, 05/30/2014 Hepatitis B Vaccine Aged Out No longe r eligible based on patient's age to complete this topic Insurance Medicare [facility] Care Teams Manager Staffing Relationship Specialty Start Date End Date Danilo Ann MD PCP - General 01/15/19
== END 2024-10-07 13:54 | disposition home or self-care (01) ==
LOC: HO.US 13:53
PROVIDERS: PCP Pediatrics; Visit Provider Urology
DX: R39.12 Poor urinary stream (principal); N40.0 Benign prostatic hyperplasia without lower urinary tract symptoms
CPT/HCPCS: 76857

== ENCOUNTER → 2024-10-07 13:56 | Outpatient (BNV) | payer MEDICARE, OTHER, SELFPAY | PROVIDERS: PCP Pediatrics; Visit Provider Radiology Diagnostic Radiology | DX: R39.12 Poor urinary stream (principal) | CPT/HCPCS: 76857 ==

== ENCOUNTER 2024-10-23 10:01 | Outpatient (AMB) | payer MEDICARE, OTHER, SELFPAY ==
--- NOTE | 2024-10-23 10:07 | MHC.OFFVIS ---
Intake Visit Reasons: 3M/US Intake Note: Patient is present for 3MO follow up Urology Medication:TADALAFIL,TESTOSTERONE,TERAZOSIN,FINASTERIDE Antibiotic Allergy:NONE Blood Thinner:APIXABAN Imaging done 10/07/24 ( ultrasound ) PVR: 53 mls Brick Extruder Operator Required: No Accompanied by: Self / Same As Patient Allergies tamsulosin Allergy (Unknown, Verified 10/23/24 10:08) Unknown HPI Comments Details: Brett is a pleasant male. He is a patient of Dr. Flores. He is seen for the following urologic condition. - hypogonadism - lower urinary tract symptoms - erectile dysfunction Here for discussion regarding GreenLight laser Had added finasteride 4 months ago PVR 50 cc Bladder ultrasound 70 g prostate Continues with use of testosterone gel and daily tadalafil plus terazosin Last cardiac evaluation showed 35% EF in setting of cardiac amyloid Continue Q six-month follow-up. Discussed recent data showing benefit in cardiac performance from testosterone usage. 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 Initial symptoms include decreased libido Yes in muscle size/strength Yes increased fatigue/malaise Yes The onset of symptoms has been gradual Laboratory results followup 09/24 , testosterone 426, , PSA 1.5, , Hct 43 09/25 , testosterone 181, 04/29 - T 544, 10/27 - T 360, PSA 2.2, 10/28 - T 124, PSA 2.0 11/29 845 Hct 48 PSA 2.7, 12/30 T 460 PSA 3.4, 07/01 T 577, PSA 4.0, 07/02 T 1111 PSA 4.3 45.2. 03/03 307, 02/02 242 3.6, 11/03 350, 06/04 430 4.2 47 Current therapy includes gel/cream exogenous testosterone - 2 pumps Therapeutic plan continue current medication Lower urinary tract symptoms Has had urgency and frequency secondary to starting medications 07/01 PSA 4.0, 06/03 4.5 Prior poor response to tamsulosin, alfuzosin Good response to daily tadalafil 5 mg FOR[facility]LY [facility], [facility] Medical History Atrial fibrillation Shingles Erectile dysfunction Colonic polyp Hypogonadism in male OA (osteoarthritis) BPH (benign prostatic hyperplasia) Bilateral nephrolithiasis Surgical History History of surgery Review of Systems Const Denies chills and Denies fever(s) Card Reports no additional complaints and Denies syncope Resp Denies cough GI Denies abdominal pain and Denies heartburn Reports as per HPI and Denies change in libido Neuro Denies syncope Psych Denies change in libido Endo Denies change in libido Physical Exam Const General: cooperative, healthy appearing, comfortable and no acute distress Orientation/consciousness: patient oriented x3 HEENT Face and sinus: Yes normal facial exam Mouth: moist mucous membranes Neck Neck: Yes normal visual inspection, Yes full ROM and Yes trachea midline Chest Chest palpation & inspection: normal inspection of the chest Resp Effort & Inspection: normal respiratory effort, able to speak in complete sentences and no respiratory distress GI Inspection: Yes normal to inspection Back/Spine/Pelvis Cervical Spine: normal cervical lordosis Thoracic/Lumbar Spine: thoracic and lumbar spine normal to inspection Skin General skin exam: no rashes or lesions noted Neuro General: patient oriented x3, gait normal, tone normal and moves all extremities Extrem General: Yes normal to inspection and Yes capillary refill normal Office Procedures Post Void Residual Post Residual Void Post Void Residual (PVR): 53 [id number] Void Residual by ultrasound Results AMB Urinalysis, Automated UA Leukoctes 0 Jcarlos/uL Last Edit by BECK Kebede on 10/23/24 10:52 UA Nitrite Negative Last Edit by BECK Kebede on 10/23/24 10:52 UA Urobilinogen 0.2 mg/dL Last Edit by BECK Kebede on 10/23/24 10:52 UA Protein 0 mg/dL Last Edit by BECK Kebede on 10/23/24 10:52 UA pH 6.0 Last Edit by BECK Kebede on 10/23/24 10:52 UA Blood 0 Cruz/uL Last Edit by BECK Kebede on 10/23/24 10:52 UA Specific [place] 1.010 Last Edit by BECK Kebede on 10/23/24 10:52 UA Ketone Negative Last Edit by Kelly Orozco [facility] on 10/23/24 10:52 UA Bilirubin 0 mg/dL Last Edit by Kelly Orozco [facility] on 10/23/24 10:52 UA Glucose 0 mg/dL Last Edit by Kelly Orozco, [facility] on 10/23/24 10:52 Results Reviewed Results Reviewed: Laboratory Last Values Urine pH (Auto) 6.0 10/23/24 10:51 Specific [place] (Auto) 1.010 10/23/24 10:51 Urine Protein (Auto) 0 mg/dL 10/23/24 10:51 Glucose (UA)(Auto) 0 mg/dL 10/23/24 10:51 Urine Ketones (Auto) Negative 10/23/24 10:51 Urine Blood (Auto) 0 Cruz/uL 10/23/24 10:51 Urine Nitrite (Auto) Negative 10/23/24 10:51 Urine Bilirubin (Auto) 0 mg/dL 10/23/24 10:51 Urine Urobilinogen (Auto) 0.2 mg/dL 10/23/24 10:51 Leukocyte Esterase (Auto) 0 Jcarlos/uL 10/23/24 10:51 Assessment & Plan Assessment & Plan (1) Hypogonadism in male: Code(s): E29.1 - Testicular hypofunction Category: Medical (2) BPH (benign prostatic hyperplasia): Code(s): N40.0 - Benign prostatic hyperplasia without lower urinary tract symptoms Category: Medical Plan Plan 1. Benign Prostatic Hyperplasia - Greenlight laser procedure planned - Adjust Eliquis schedule around procedure - Laborer Operator clearance required 2. Atrial Fibrillation - Maintain current medication regimen 3. Cardiac Amyloidosis - Regular cardiology follow-ups Discussion Notes The patient and I discussed the Greenlight laser procedure for treating his Benign Prostatic Hyperplasia, which has a high success rate for improving urinary symptoms. We reviewed the need to adjust his Eliquis regimen around the procedure and the importance of obtaining child care cook clearance due to his cardiac conditions. I reassured him about the procedure's safety and addressed his concerns regarding his cardiac status and the necessity of the procedure. Patient Instructions - Discontinue Eliquis 3 days before the procedure and resume 5 days after. - Obtain clearance from child care cook for the procedure. - Review the Greenlight laser procedure pamphlet provided. Orders: Orders AMB Post Void Residual by ultrasound Today N40.0 - Benign prostatic hyperplasia without lower urinary tract symptoms AMB Urinalysis Automated Today Z13.9 - Encounter for screening, unspecified Patient Instructions: This note is constructed using voice recognition software. While every effort has been made to ensure accuracy lab pack chemist errors may have been included. Imaging studies, laboratory and physical exam results were discussed and reviewed in detail. No major barriers to patient understanding were identified. An opportunity to ask questions regarding the treatment plan was provided. All questions were answered. The patient expressed understanding and agreement with the above treatment plan. The patient is aware they should contact our office by phone for worsening of their current condition or the appearance of new urologic symptoms. Compliance is encouraged with any medications and followup testing that is ordered. It is a privilege to participate in the urologic care of your patient. If you have any questions or concerns regarding treatment for the above conditions, or other urologic issues, please do not hesitate to contact me. The office telephone contact is [phone]. Sincerely, Dr Erickson Huitron MD, [facility] - Urology Compassionate Specialist Care for the Genitourinary System Coding Level of Care Code Est Pt Level 4 (07585) Diagnoses Hypogonadism in male E29.1 BPH (benign prostatic hyperplasia) N40.0 CPT Codes Post Residual Void - PVR CPT Code: 91945-[id number] Void Residual by ultrasound ([id number])
--- OUTSIDE RECORDS SUMMARY | 2024-10-23 10:39 | XMS_ITS | Clinical Summary ---
Author Organization [facility] Address [address] [place] [address] Phone Care Team Providers Care Automatic Glove Turner And Former Name Role Phone Unavailable Primary Care Provider Unavailabl e Allergies No known active allergies Medications terazosin (HYTRIN) 5 mg capsule Take 1 capsule (5 mg total) by mouth at bedtime. Active testosterone 20.25 mg/1.25 gram (1.62 %) gel in metered-dose pump Apply topically 1 (one) time each day. 0 Active apixaban (ELIQUIS) 5 mg tablet Take 1 tablet (5 mg total) by mouth 2 (two) times a day. 0 Active tadalafiL (CIALIS) 5 mg tablet Take 1 tablet (5 mg total) by mouth 1 (one) time each day. 0 Active tafamidis (Vyndamax) 61 mg capsule Take 61 mg by mouth daily. Active cholecalciferol, vitamin D3, (VITAMIN D3 ORAL) Take 1,000 Units by mouth 1 (one) time each day. Active irbesartan (AVAPRO) 75 mg tabletIndications :Essential (primary) hypertension TAKE 1 TABLET BY MOUTH EVERY DAY 90 tablet 1 5 Active finasteride (PROSCAR) 5 mg tablet Take 1 tablet (5 mg total) by mouth 1 (one) time each day. Do not crush, chew, or split. Active torsemide (DEMADEX) 10 mg tablet TAKE 1 TABLET BY MOUTH 1 TIME EACH DAY. 90 tablet 1 5 Active Active Problems Problem Noted Date Diagnosed [...] therapy which he has already done at [facility], spinal cord stimulator and the Intracept procedure. [...] discuss injections and the Intracept procedure at [facility] and he was given a brochure on [...] of uric acid 01/19/2021 Prediabetes 01/19/2021 Wild-type transthyretin-rela marcleo (ATTR) amyloidosis ([facility] V24, [facility] V28) 07/06/2020 Assessment & Plan (04/05/2024 3:58 PM EST): Patient continues to follow with Dr. Boogie at [facility] for history of wild-type ATTR amyloidosis. His condition appears to be stable and he appears euvolemic at this time. He will continue on tafamidis and furosemide as prescribed. Stage 3 chronic kidney disease ([facility] V24, [facility] V28) 06/03/2020 Hyperlipidemia 06/02/2020 Overview (03/20/2024): Last Assessment & Plan: Lipids are monitored by his primary care. 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 He is being treated with tafamidis. Presently his symptoms are stable. Assessment & Plan (07/24/2024 3:45 PM EDT): Patient with a amyloid myopathy. Followed at the amyloid clinic [facility]. Patient with no chest pain pressure shortness of breath. No syncope presyncope or palpitations. Patient's echocardiograms are followed in [place] were not can repeat them locally. He seems to be very well covered from a euvolemic standpoint I am not going to change medical management at this time. Atrial fibrillation (CMS/HCC V24, CMS/HCC V28) 1 04/16/2019 Overview (03/20/2024): Last Assessment & Plan: Patient [...] and permanent pacemaker placement. 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 Encounters Date Type Department Care Team Description 09/12/2024 Telephone [facility] Cardiology [place] [address] [place] [address] Amando Kat MD 07/24/2024 2:30 PM EDT Office Visit [place] [id number] [place] [address] Amando Kat MD Amyloid myopathy ([facility] V24, [facility] V28) (Primary Dx) from Last 3 Months Immunizations Name Administration [...] Date Site/Laterality Comments TOTAL KNEE ARTHROPLASTY PROCEDURE: DC ARTHRP KNE CONDYLE&PLATU MEDIAL&LAT COMPARTMENTS OTHER SURGICAL HISTORY PROCEDURE: DC ARTHRP ACETBLR/PROX FEM PROSTC AGRFT/ALGRFT SHOULDER SURGERY Right PROCEDURE: HISTORICAL SHOULDER SURGERY BACK SURGERY 01/22/2019 PROCEDURE: HISTORICAL BACK SURGERY; COMMENT: L2-3 L3-4 decomp Medical History Medical History Date Comments A-fib ([facility] V24, [facility] V28) DX:A-fib (HCC) Amyloidosis ([facility] V24, [facility] V28) DX:Amyloidosis (HCC) Sensorineural hearing loss DX:Se nsorineural hearing loss Osteoarthritis DX:Osteoarthriti s Social History Tobacco Use Types Packs/Day Years Used Date Smoking Tobacco: Former Cigarettes Smokeless Tobacco: Never Tobacco Cessation:Counseling Given: Not Answered Comments:Quit in 1977 Alcohol Use Standard Drinks/Week Comments Yes 2 (1 standard drink = 0.6 oz pure alcohol) 2 drinks max per day, but normally not 2 Sex and Gender Information Value Date Recorded Sex Assigned at Not on file Legal Sex Male 10:03 AM EST Gender Identity Not on file Sexual Orientation Not on file Obstetrics History Last Filed Vital Signs Vital Sign Reading Time Taken Comments Blood Pressure 110/70 07/24/2024 2:21 PM EDT Pulse 82 07/24/2024 2:21 PM EDT Temperature - - Respiratory Rate - - Oxygen Saturation 98% 07/24/2024 2:21 PM EDT Inhaled Oxygen Concentration - - Weight 75.5 kg (166 lb 8 oz) 07/24/2024 2:21 PM EDT Height 175.3 cm (5' 9 ) 07/24/2024 2:21 PM EDT Body Mass Index 24.59 07/24/2024 2:21 PM EDT Plan of Treatment Upcoming Encounters Date Type Department Care Team (Late st Contact Info) Description 01/24/2025 9:10 AM EST Office Visit [facility] [address] [place] [id number] Heather Mederos, MANUELA [address] [place] [address] [place] [address] Health Maintenance Due Date Last Done Comments Zoster Vaccines (1 of 2) 05/18/2011 03/23/2011 Cholesterol Screening (Lipid Panel) 02/13/2022 Falls Risk Assessment 02/13/2022 Social Influencers of Health Screening 02/13/2022 Medicare Annual Wellness Visit 05/20/2023 05/19/2022 RSV Immunization Adult Patients (1 - 1-dose 75+ series) 07/16/2023 Hypertension/CHF/CAD Annual BMP Blood Test 02/07/2024 02/06/2023, 04/30/2021, 04/28/2021, Additional history exists Depression Screening 03/13/2024 COVID-19 Vaccine (6 - Pfizer risk 2023- season) 2024 01/03/2024, 01/12/2022, 01/06/2021, Additional history exists Influenza Vaccine (#1) 2024 , 03/17/2023, 12/29/2021, Additional history exists DTaP,Tdap,and Td Vaccines (2 - Td or Tdap) 04/15/2029 04/15/2019 Pneumococcal Vaccine: 50+ Years Completed 03/15/2016, 03/15/2016, 05/30/2014 Hepatitis C Screening Completed 04/17/2019 HIB Vaccines Aged Out No longer eligi [...] Procedure Name Priority Date/Time Associated Diagnosis Comments ANNUAL BMP BLOOD TEST Routine 02/06/2023 from Last 3 Months or Most Recently Relevant to Health Maintenance Results * Annual BMP Blood Test (02/06/2023) Annual BMP Blood Test abstracted Historical Provider MD HEALTH MAINTENANCE Final Result from Last 3 Months or Most Recently Relevant to Health Maintenance Insurance MEDICARE [facility]
--- OUTSIDE RECORDS SUMMARY | 2024-10-23 10:39 | XMS_ITS | Clinical Summary ---
Author Organization [facility] Address [address] [place] [address] Care Team Providers Care Rigging And Controls Aircraft Mechanic Name Role Phone Danilo Ann MD Primary Care Provider [phone] Social History Tobacco Use Types Packs/Day Years [...] age to complete this topic Care Teams Rigging And Controls Aircraft Mechanic Relationship Specialty Start Date End Date Danilo Ann MD [address] [place] [address] PCP - General Internal Medicine 01/14/19
--- OUTSIDE RECORDS SUMMARY | 2024-10-23 10:39 | XMS_ITS | Clinical Summary ---
Author Organization [facility] Address [address] [place] [address] Phone Care Team Providers Care Pipe Fitter Soft Copper Name Role Phone Amando Kat MD Unavailable [phone] Erickson Huitron MD Unavailable Sukhdev Boogie MD Unavailable [phone] Tavo Flores DO Primary Care Provider Tavo Flores DO Unavailable [phone] Allergies Active Allergy Reactions Criticality Noted Date Comments Meperidine Nausea and/or Vomiting,Other (See Comments) 03/24/2017 Tamsulosin Other (See Comments) 03/24/2017 Retrograde ejaculation Medications Medication-Free Text 2 puffs daily. Medical marijuana Active tadalafil (CIALIS) 5 MG tabletIndicatio ns:benign prostatic hyperplasia with lower urinary tract sx,erectile dysfunction Take 1 tablet (5 mg total) by mouth daily as needed. Indications: enlarged prostate with urination problem, the inability to have an erection 90 tablet 3 0 Active Additional Information Patient taking differently:5 mg OralDaily, Indications: benign prostatic hyperplasia with lower urinary tract sx, erectile dysfunction, Reported on 09/09/2024 testosterone (ANDROGEL) 20.25 mg/1.25 gram (1.62 %) transdermal gel pump Apply 20.25 mg of testosterone topically daily. 4 pumps daily 0 Active tafamidis 61 mg Cap Take 1 capsule by mouth daily. 0 Active irbesartan (AVAPRO) 75 MG tablet Take 75 mg by mouth daily. Active torsemide (DEMADEX) 10 MG tablet Take 20 mg by mouth daily. 3 Active terazosin (HYTRIN) 5 MG capsule Take 1 capsule (5 mg total) by mouth nightly at bedtime. 3 Active cholecalciferol (VITAMIN D3) 25 MCG (1,000 unit) tablet Take 1,000 Units by mouth daily. Active ELIQUIS 5 mg tablet TAKE 1 TABLET BY MOUTH TWICE A DAY 180 tablet 5 Active Active Problems Problem Noted Date [...] was seen by Dr. Damion Hannah, our revolving field assembler and Dr. Sukhdev Boogie, our fryer operator, please see their attached consults regarding their [...] a history of cardiac amyloidosis-on medication through [facility] amyloidosis clinic, has been relatively stable. [...] symptoms of CHAPARRO. He was referred to [facility] hypertrophy clinic Dr. Fredis Naqvi. However [...] for consult with hypertrophic cardiomyopathy clinic at [facility]. Elevated BP without diagnosis of hypertension Assessment [...] him evaluated by Dr. Shantanu Hyde at [facility] for the same. Increase metoprolol to 50 [...] follows with Dr. Mcclain for the same. 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 He will need to wait 2.5 weeks [...] Encounters Date Type Department Care Team Description 10/07/2024 Orders Only [facility] Family Medicine [address] [place] [address] [place] [address] Provider, MD Luis 09/15/[address] [place] [address] Tavo Flores, Medication Refill 09/12/2024 Telephone Sinha Pedro Luis [address] [place] [address] Tavo Flores, DO Cardiology Clearance for Surgery 09/09/2024 1:00 PM EDT Office Visit [facility] Pedro Luis [address] [place] [address] Tavo Flores, DO Other pneumonia, unspecified organism (Primary Dx); Cardiac amyloidosis 09/02/2024 1:30 PM EDT Office Visit [address] [place] [address] Susi Ortiz MD Other pneumonia, unspecified organism (Primary Dx) 09/02/[address] [place] [address] Tavo Flores, Triage (Green call - Weight loss, productive cough, low grade fever, ) 08/16/[address] [place] [address] Tavo Flores, Referral 08/08/[address] [place] [address] GingNakia boltonra 07/26/[address] [place] [address] Tavo Flores, from Last 3 Months Immunizations Immunization Administration Dates Next Due COVID-19 (Pre-01/02) Carista App Vaccine, mRNA, PF Influenza High-Dose Quadrivalent Preservative [...] Cigarettes 1.5 12 1 967 - 1979 Smokeless Tobacco: Never Tobacco Cessation:Counseling Given: Not [...] Description 12/05/2024 8:00 AM EDT Office Visit [facility] [address] [place] [address] Tavo Flores DO [address] [facility], [address]nd [address] [place] [address] [email or web address] Health Maintenance Due Date Last Done Comments [...] this topic Medical Devices Implanted Type Area Bath Design Sales Consultant Device Identifier Shelf Expiration Date Model / Serial / Lot Left Ear Hips Shoulder Procedures Procedure Name Priority Date/Time Associated Diagnosis Comments OUTSIDE US IMAGING REPORT ONLY Routine 10/07/2024 6:24 PM EDT BASIC METABOLIC PANEL Routine 02/06/2023 8:24 AM EST Medicare annual wellness visit, subsequent HEPATITIS C ANTIBODY, QUALITATIVE Routine 04/17/2019 8:57 AM EST Routine general medical examination at a health care facility from Last 3 Months or Most Recently Relevant to Health Maintenance Results * Outside US Imaging??Report Only (10/07/2024 6:24 PM EDT) us Historical Provider MD MARTINEZ OP Edited Re sult - Final * (ABNORMAL) Basic metabolic panel (02/06/2023 8:24 AM EST) SODIUM 139 133 - 146 mmol/L [facility] CHLORIDE 101 96 - 108 mmol/L [facility] POTASSIUM 4.9 3.3 - 5.1 mmol/L [facility] CO2 29 21 - 35 mmol/L [facility] BUN 31(H) 6 - 19 mg/dL [facility] CREATININE 1.60(H) 0.5 - 1.5 mg/dL [facility] GLUCOSE 102(H) 70 - 99 mg/dL [facility] CALCIUM 9.4 8.4 - 10.3 mg/dL [facility] EGFR 45(L) >59 mL/min/1.7 3m2 [facility] Comment:Estimated glomerular filtration rate calculated using the CKD-EPI refit equation. ANION GAP 14 10 - 20 mmol/L [facility] Blood 02/06/2023 8:24 AM EST 02/06/2023 8:27 AM EST us Tavo Flores DO LAB BLOOD ORDERABLES Fi nal Result [facility] [address] [place] [address] * Hepatitis C antibody, qualitative (04/17/2019 8:57 AM EST) HCV NON-REACTIV E NON-REACTI VE [facility] Blood 04/17/2019 8:57 AM EST 04/17/2019 9:00 AM EST Danilo Ann MD LAB BLOOD ORDERABLES Final Result [facility] [address] [place] [address] from Last 3 Months or Most Recently Relevant to Health Maintenance Insurance [place] [id number] [facility] MEDICARE SUPPLEMENT MEDICARE PART A & B [facility] MEDICARE SUPPLEMENT MEDICARE PART A & B [facility] MEDICARE SUPPLEMENT MEDICARE PART A & B [facility] MEDICARE SUPPLEMENT MEDICARE PART A & B [facility] MEDICARE SUPPLEMENT MEDICARE PART A & B [facility] MEDICARE SUPPLEMENT MEDICARE PART A & B [employer] MEDICARE SUPPLEMENT MEDICARE PART A & B [employer] MEDICARE SUPPLEMENT MEDICARE PART A & B Member Subscriber Plan / Payer (Ef fective 2013-Present) Name:Brett Conde Member ID:[id number] Relation to Subscriber:Self Name:Brett Conde Subscriber ID:[id number] Payer ID:[id number] Group ID:Not on file Type:Medicare Address: [facility] [employer] [facility] [employer] [facility] [address] [place] [phone] [facility] [employer] MEDICARE SUPPLEMENT Advance Directives For more information, please contact: [phone] (9AM - 5PM [facility], Monday-Monday) * Full Code (Presumed) (Latest Code Status on File) Date Activated Date Inactivated Comments 08/31/2017 7:22 AM 09/01/2017 4:20 AM Care Teams Pipe Fitter Soft Copper Relationship Specialty Start Date End Date Tavo Flores DO [address] [place] [address], [address] [place] [address] PCP - General Internal Medicine 09/16/21 Amando Kat MD [address] [place] [address] [address] [place] [address] Cardiology 04/17/20 Erickson Huitron MD [address] [place] [address] [address] [place] [address] Urology 04/17/20 [place] [address] Internal Medicine 04/26/21 Tavo Flores DO [address] [place] [address], [address] [place] [address] Insurance Assigned Provider 06/16/24 Additional Source Comments The information contained in this document represents components of the legal health record. It is not the complete legal health record.[facility]
--- OUTSIDE RECORDS SUMMARY | 2024-10-23 10:39 | XMS_ITS | Clinical Summary ---
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
== END 2024-10-23 10:56 | disposition home or self-care (01) ==
LOC: HO.HUSH 10:02
PROVIDERS: PCP Pediatrics; Visit Provider Urology
DX: E29.1 Testicular hypofunction (principal); N40.0 Benign prostatic hyperplasia without lower urinary tract symptoms; Z13.9 Encounter for screening, unspecified
CPT/HCPCS: 99214

== ENCOUNTER → 2024-10-23 10:01 | Outpatient (BNVA) | payer MEDICARE, OTHER, SELFPAY | PROVIDERS: PCP Pediatrics; Visit Provider Urology | DX: Z01.818 Encounter for other preprocedural examination (principal); N40.1 Benign prostatic hyperplasia with lower urinary tract symptoms; R39.12 Poor urinary stream; E29.1 Testicular hypofunction; Z79.01 Long term (current) use of anticoagulants; Z79.899 Other long term (current) drug therapy | CPT/HCPCS: 51798; 81003; 99212 ==

== ENCOUNTER 2024-12-02 08:51 | Day surgery (SDC) | payer MEDICARE, OTHER, SELFPAY ==
--- OUTSIDE RECORDS SUMMARY | 2024-11-22 16:22 | XMS_ITS | Clinical Summary ---
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
--- OUTSIDE RECORDS SUMMARY | 2024-11-22 16:22 | XMS_ITS | Clinical Summary ---
Author Organization [facility] Address [address] [place] [address] Care Team Providers Care Floor Helper Name Role Phone Danilo Ann MD Primary Care Provider [phone] Social History Tobacco Use Types Packs/Day Years [...] age to complete this topic Care Teams Floor Helper Relationship Specialty Start Date End Date Danilo Ann MD [address] [place] [address] PCP - General Internal Medicine 01/14/19
--- OUTSIDE RECORDS SUMMARY | 2024-11-22 16:22 | XMS_ITS | Encounter Summary ---
Author Organization [facility] [place] [address] Care Team Providers Care Social Media Developer Name Role Phone Unavailable Primary Care Provider Unavailabl e Reason for Visit * Reason Onset Date Comments Medical Records 11/18/2024 Encounter Details Date Type Department Care Team (Late st Contact Info) Description 11/18/2024 Telephone [facility] Cardiology [facility] [address] [place] [address] Provider, Not In System Social History Tobacco Use Types Packs/Day Years Used Date Smoking Tobacco: Former Cigarettes Smokeless Tobacco: Never Comments:Quit in 1977 Alcohol Use Standard Drinks/Week Comments Yes 2 (1 standard drink = 0.6 oz pure alcohol) 2 drinks max per day, but normally not 2 Sex and Gender Information Value Date Recorded Sex Assigned at Not on file Legal Sex Male 10:03 AM EST Gender Identity Not on file Sexual Orientation Not on file documented as of this encounter Progress Notes * Daniela Marte - 11/18/2024 8:22 AM EDT Faxed 11/14/2024 Office Note and EKG to [facility] Att: Kristi at [phone] on 11/18/2024 documented in this encounter Plan of Treatment Not on file documented as of this encounter Visit Diagnoses Not on filedocumented in this encounter
--- OUTSIDE RECORDS SUMMARY | 2024-11-22 16:22 | XMS_ITS | Clinical Summary ---
Author Organization [facility] Address [address] [place] [address] Phone Care Team Providers Care Assembler Utility Buildings Name Role Phone Unavailable Primary Care Provider [...] each day. Active irbesartan (AVAPRO) 75 mg tabletIndication s:Essential [...] EACH DAY. 90 tablet 1 5 Active Additional Information Patient taking differently: 20 mgoral Daily, Reported on 11/14/2024 Active Problems Problem Noted Date Diagnosed Date [...] therapy which he has already done at [facility], spinal cord stimulator and the Intracept procedure. [...] discuss injections and the Intracept procedure at [facility] and he was given a brochure on it. Before considering any intervention, I am going to send him for new lumbar spine MRI since his pain has worsened and the previous study is 2 years old. In the interim, he will continue using marijuana and walking 1 to 2 miles per day as tolerated. Prediabetes 01/19/2021 Wild-type transthyretin-rela marcelo (ATTR) amyloidosis ([facility] V24, [facility] V28) 07/06/2020 Assessment & Plan (04/05/2024 3:58 PM EST): Patient continues to follow with Dr. Boogie at [facility] for history of wild-type ATTR amyloidosis. His condition appears to be stable and he appears euvolemic at this time. He will continue on tafamidis and furosemide as prescribed. Stage 3 chronic kidney disease ([facility] V24, [facility] V28) 06/03/2020 Hyperlipidemia 06/02/2020 Assessment & Plan (11/14/2024 11:56 AM EDT): Lipids are monitored by his primary care provider. 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 He is being treated with tafamidis. His symptoms remain stable. No changes at this time. Assessment & Plan (07/24/2024 3:45 PM EDT): Patient with a amyloid myopathy. Followed at the amyloid clinic [facility]. Patient with no chest pain pressure shortness of breath. No syncope presyncope or palpitations. Patient's echocardiograms are followed in [place] were not can repeat them locally. He seems to be very well covered from a euvolemic standpoint I am not going to change medical management at this time. Atrial fibrillation (CMS/HCC V24, CMS/HCC V28) 1 04/16/2019 Assessment & Plan (11/14/2024 11:56 AM EDT): Patient has history of chronic atrial fibrillation remains on chronic anticoagulation with Eliquis. Patient is not on beta-maya due to his history of amyloidosis and intolerance. He was previously on calcium channel maya and this made him feel unwell. His heart rate today is 103. He denies any palpitations. He continues to decline resuming any rate controlling therapies and he will continue to monitor for symptoms of palpitations or increased heart rate. He did have caffeine this morning. Assessment & Plan (04/05/2024 3:58 PM EST): [...] and permanent pacemaker placement. He has a YTI1ZC2-ZPNi score of 4 and continues on Eliquis for stroke prevention. Hypertension 02/14/2020 Assessment & Plan (11/14/2024 11:56 AM EDT): Blood pressure is under good control with a range today 122/80. No changes to medical therapies at this time. Assessment & Plan (04/05/2024 3:45 PM EST): Blood pressure is well-controlled today at 108/64. He should continue with irbesartan as prescribed. 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 Resolved Problems Problem Noted Date Diagnosed Date Resolved Date Abnormal blood level of uric acid 01/19/2021 11/14/2024 Elevated BP without diagnosis of hypertension 08/22/1911/14/2024 Functional weakness 06/13/2019 11/15/19 25 Adjustment reaction 09/24/2018 11/15/19 25 Night sweats 01/29/2018 11/14/2024 Serum albumin decreased 01/29/201806/2024 Encounters Date Type Department Care Team Description 11/18/[address] [facility] [address] [facility] [address] [place] [address] Provider, Not In System 11/14/2024 8:10 AM EDT Consult [facility] [address] [address] [place] [address] Heather Mederos NP Amyloid myopathy (CMS/HCC V24, CMS/HCC V28) (Primary Dx); Primary hypertension; Longstanding persistent atrial fibrillation (CMS/HCC V24, CMS/HCC V28); Mixed hyperlipidemia; Preoperative cardiovascular examination 10/25/[address] [facility] [address] [facility] [address] [place] [address] Amando Kat MD 09/12/[address] [facility] [address] [facility] [address] [place] [address] Amando Kat MD from Last 3 Months Immunizations Name Administration [...] Date Site/Laterality Comments TOTAL KNEE ARTHROPLASTY PROCEDURE: GA ARTHRP KNE CONDYLE&PLATU MEDIAL&LAT COMPARTMENTS OTHER SURGICAL HISTORY PROCEDURE: GA ARTHRP ACETBLR/PROX FEM PROSTC AGRFT/ALGRFT SHOULDER SURGERY Right PROCEDURE: HISTORICAL SHOULDER SURGERY BACK SURGERY 01/22/2019 PROCEDURE: HISTORICAL BACK SURGERY; COMMENT: L2-3 L3-4 decomp Medical History Medical History Date Comments A-fib ([facility] V24, [facility] V28) DX:A-fib ([facility]) Amyloidosis ([facility] V24, [facility] V28) DX:Amyloidosis ([facility]) Sensorineural hearing loss DX:Se nsorineural hearing loss [...] Sign Reading Time Taken Comments Blood Pressure 122/80 11/14/2024 8:21 AM EDT Pulse 103 11/14/2024 8:21 AM EDT Temperature - - Respiratory Rate - - Oxygen Saturation 94% 11/14/2024 8:21 AM EDT Inhaled Oxygen Concentration - - Weight 74.4 kg (164 lb) 11/14/2024 8:21 AM EDT Height 175.3 cm (5' 9 ) 11/14/2024 8:21 AM EDT Body Mass Index 24.22 11/14/2024 8:21 AM EDT Plan of Treatment Health Maintenance Due [...] 03/13/2024 COVID-19 Vaccine (6 - Pfizer risk season) 2024 01/03/2024, 01/12/2022, 01/06/2021, Additional history [...] Date/Time Associated Diagnosis Comments ECG 12-LEAD Routine 11/14/2024 11:57 AM EDT Primary hypertension ANNUAL BMP BLOOD TEST Routine 02/06/2023 from Last 3 Months or Most Recently Relevant to Health Maintenance Results * ECG 12 lead (11/14/2024 11:57 AM EDT) Ventricular Rate ECG 103 BPM GEMUSE Atrial Rate 163 BPM GEMUSE QRS Duration 98 ms GEMUSE Q-T Interval 334 ms GEMUSE QTc 437 ms GEMUSE R Cornucopia -83 degrees GEMUSE T [place] 95 degrees GEMUSE ECG Interpretation Atrial fibrillation with rapid ventricular response Left axis deviation Inferior-stem crusher ior infarct (cited on or before 16-JAN-2019) Anterior infarct (cited on or before 16-JAN-2019) Abnormal ECG When compared with ECG of 05-APR-2024 13:57, No significant change was found Confirmed by Arsenio KAT JAMES ([id number]) on 11/14/2024 12:42:37 PM GEMUSE 11/14/2024 8:30 AM EDT 11/14/2024 12:42 PM EDT Heather Mederos FRUIT RAISER ECG ORDERABLES Edited Resul t - Final GEMUSE * Annual BMP Blood Test (02/06/2023) Annual BMP Blood Test abstracted Historical Provider HEALTH MAINTENANCE Final Result from Last 3 Months or Most Recently Relevant to Health Maintenance Insurance MEDICARE [facility]
[2024-11-28 10:20] VITALS: BMI 24.2
--- NOTE | 2024-11-28 10:52 | HO.ANESPROP2 ---
Documented by User: Madelyn Cintron NP 11/28/24 11:45 HPI - Anesthesia Eval Consult details Narrative: 74yo M for Laser Ablation Prostate w/Green Light Cardiac opitmized. Follows [facility] and [facility] for wild-type attr amloidosis with hypertrophic cardiomyopathy, htn, afib on eliquis, distant hx of WPW. On tafamidis since January 2020. Stable at 11/2024 [facility] office visit. Stable at 11/2024 [facility] visit with ECHO and EKG. Provider notes increasing uric acid levels with plan to monitor closely. PMFSH Active Problems Active Problems: All Active Problems Erectile dysfunction (Acute) Bilateral nephrolithiasis (Acute) BPH (benign prostatic hyperplasia) (Acute) Hypogonadism in male (Acute) Past Medical History Medical History Wild-type transthyretin-related (ATTR) amyloidosis Hypertrophic cardiomyopathy Atrial fibrillation Shingles Erectile dysfunction Colonic polyp Hypogonadism in male OA (osteoarthritis) BPH (benign prostatic hyperplasia) Bilateral nephrolithiasis Surgical History Surgical History History of surgery Social History Social History Patient Tobacco Use Status: Never used Tobacco Use of substances other than those prescribed or required for medical reasons: Yes Advance Directives: No Advance Directives Information Provided: Yes Meds Allergies Allergy/AdvReac Type Severity Reaction Status Date / Time tamsulosin Allergy Unknown Unknown Verified 10/23/24 10:08 Home Medications ?Medication ?Instructions ?Recorded ?Confirmed ?Last Taken ?Type apixaban 5 mg tablet 5 mg PO BID 07/08/20 12/02/24 11/29/24 08:00 History irbesartan 75 mg tablet 75 mg PO DAILY 07/08/20 12/02/24 12/02/24 08:00 History tafamidis 61 mg capsule 61 mg PO DAILY 07/08/20 05/30/23 Unknown History furosemide 20 mg tablet 20 mg PO 12/31/20 05/30/23 12/01/24 18:00 History torsemide 10 mg tablet 20 mg PO DAILY 06/01/22 12/02/24 12/02/24 07:00 History Exam Height,Weight and Vital Signs: Height 5 ft 9 in Weight 74.389 kg Pertinent Lab Results Pertinent Lab Results: 11/2024 Albumin 3.5 - 5.0 G/DL 4.4 Alkaline Phosphatase, Total 25 - 100 U/L 93 Comment:?The results of this assay should be interpreted in the context of the patient's hap-ftjysdew-db- and additional relevant clinical and laboratory data. ALT(SGPT) 9.0 - 67.0 U/L 15 Amylase 26 - 131 U/L 211?High? AST(SGOT) 13 - 39 U/L 24 Comment:? PLEASE NOTE NEW REFERENCE RANGE Bilirubin, Total 0.3 - 1.2 MG/DL 0.9 Urea Nitrogen (BUN) 7 - 25 MG/DL 46?High? Calcium 8 - 10.5 MG/DL 9.3 Chloride 98 - 110 MMOL/L 101 Cholesterol <200 mg/dL 202?High? Comment:?CHOLESTEROL RISK CLASSIFICATION: <200 MG/DL = LOW RISK, ?200 to 239 MG/DL = BORDERLINE/HIGH RISK, ?>239 MG/DL = HIGH RISK. CK 39 - 193 U/L 182 Comment:?The results of this assay should be interpreted in the context of the patient's npy-cdkjhqib-mr- and additional relevant clinical and laboratory data. CO2 19 - 28 MMOL/L 28.0 Comment:?Elevated triglyceride levels (>1000 mg/dL) may cause falsely low bicarbonate results. If clinically indicated, a venous blood gas should be ordered to confirm the bicarbonate result. Glucose 70 - 100 MG/DL 92 Iron 50 - 175 MCG/DL 75 Comment:?The results of this assay should be interpreted in the context of the patient's hlj-kxjvevid-qd- and additional relevant clinical and laboratory data. TIBC 240 - 450 MCG/DL 336 Transferrin Saturation, Calculated 20 - 50 % 22 Magnesium 1.6 - 2.6 MG/DL 2.2 Phosphorous 2.8 - 4.1 MG/DL 3.6 Potassium 3.1 - 5.3 MMOL/L 4.2 Comment:?For serum, the lower end of the reference range may be higher by 0.2 to 0.4 mmol/L. Sodium 135 - 145 MMOL/L 141 Triglyceride 40 - 200 MG/DL 70 Uric Acid 3.4 - 7.0 MG/DL 11.5?High? Comment:?The results of this assay should be interpreted in the context of the patient's htd-yrxwjivr-tt- and additional relevant clinical and laboratory data. Creatinine 0.7 - 1.3 MG/DL 1.73?High? Comment:?The results of this assay should be interpreted in the context of the patient's tra-qneiopjy-dk- and additional relevant clinical and laboratory data. Estimated GFR >59 mL/min/1.73_m2 40?Low? Comment:?The calculation of eGFR utilizes the 2020 CKD-EPI creatinine equation. eGFR estimates can be inaccurate and may vary from the true level of kidney function. Specific populations in which an eGFR value may be inaccurate or biased include: acute kidney injury, , extremes of muscle mass, age greater than 80 years old. The results of this assay should be interpreted in the context of the patient's tki-syphnktx-sy- and additional relevant clinical and laboratory data. Anion Gap Without Potassium 7 - 16 12 B-Type Natriuretic Peptide 0 - 176 PG/ML 323?High? Comment:?TO RULE OUT HEART FAILURE, 100 PG/ML CAN BE USED A DECISION THRESHOLD WITH A CLINICAL SPECIFICITY OF 97.4%. IN CLINICAL STUDIES, 72.6% OF CHF PATIENTS HAD BNP LEVELS GREATER THAN 100 PG/ML. RESULT INTERPRETATION SHOULD CONSIDER PATIENT AGE, SEX, CLINICAL FINDINGS AND OTHER DIAGNOSTIC PROCEDURES. THIS SANCHEZ BUILDING MAINTENANCE WORKER ASSAY SHOULD NOT BE USED INTERCHANGEABLY WITH OTHER OPTION TRADER'S BNP ASSAYS OR NT-PROBNP ASSAY RESULTS. Vit D 25-Hydroxy 30 - 60 ng/mL 52.7 Comment: Vitamin D Reference Range: <20 ng/mL ? ? ? Insufficient 20-96 ng/mL ? ? Sufficient 30-60 ng/mL ? ? [place] >96 ng/mL ? ? Potentially Toxic Hemoglobin A1C 4.0 - 5.6 % 5.5 Comment:? PLEASE NOTE NEW REFERENCE RANGE Initial Diagnosis of Diabetes: Increased risk for diabetes (pre-diabetes): 5.7-6.4% Diabetes: > or = 6.5% Patients with Diagnosis of Diabetes: In patients with diabetes, HbA1c goals should be discussed with a healthcare provider. The Sanchez hemoglobin A1c assay should not be used to diagnose or monitor diabetes in patients with altered red cell lifespan, such as homozygous hemoglobin variants, Hb SC, HbF > 5%, and hemolytic anemia. High Sensitivity Troponin I <35 ng/L 112?High? 05/2024 WBC 4.00 - 11.00 K/uL 6.17 RBC 4.50 - 5.90 M/uL 4.89 HGB 13.5 - 17.5 g/dL 15.5 HCT 41.0 - 53.0 % 47.5 PLT 150 - 450 K/uL 181 MCV 80.0 - 100.0 fL 97.1 MCH 27.0 - 31.0 pg 31.7?High? MCHC 32.0 - 36.0 g/dL 32.6 RDW 11.5 - 14.5 % 13.0 MPV 8.4 - 12.0 fL 11.5 NRBC 0.00 /100 WBCs 0.00 ABSOLUTE NRBC 0.00 K/uL 0.00 Narrative Narrative: EKG 11/2024 Atrial fibrillation Left axis deviation Right bundle branch block Anterior infarct (cited on or before 20-Jan-2020) Abnormal ECG When compared with ECG of 11-Dec-2023 11:43, Right bundle branch block is now present ECHO 11/2024 Interpretation Summary Severely increased LV wall thickness with low normal LVEF (45-50%) GLS not performed. Normal RV size with reduced RV systolic function. RV free wall strain (-8%) Moderately dilated LA and RA. Valves appear normal. 1+ TR with estimated PA systolic pressure of 38 mmHg. IVC suggests an RA pressure of 5-10 mmHg. Other findings as detailed above. Compared to prior study of 11/2023, the overall findings are similar. 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 Atrial fibrillation Shingles Erectile dysfunction Colonic polyp Hypogonadism in male OA (osteoarthritis) BPH (benign prostatic hyperplasia) Bilateral nephrolithiasis Family History Family history of problems with anesthesia: No Surgical History Surgical History History of surgery History of Problems with Anesthesia: No Social History Social History Patient Tobacco Use Status: Never used Tobacco Use of substances other than those prescribed or required for medical reasons: Yes Advance Directives: No Advance Directives Information Provided: Yes Meds Allergies Allergy/AdvReac Type Severity Reaction Status Date / Time tamsulosin Allergy Unknown Unknown Verified 10/23/24 10:08 Home Medications ?Medication ?Instructions ?Recorded ?Confirmed ?Last Taken ?Type apixaban 5 mg tablet 5 mg PO BID 07/08/20 12/02/24 11/29/24 08:00 History irbesartan 75 mg tablet 75 mg PO DAILY 07/08/20 12/02/24 12/02/24 08:00 History tafamidis 61 mg capsule 61 mg PO DAILY 07/08/20 05/30/23 Unknown History furosemide 20 mg tablet 20 mg PO 12/31/20 05/30/23 12/01/24 18:00 History torsemide 10 mg tablet 20 mg PO DAILY 06/01/22 12/02/24 12/02/24 07:00 History Exam Airway Mallampati Class: II TM Dist: >3cm Neck ROM: Full Heart: rrr Lungs: cta Assessment and Plan Assessment Anesthesia Assessment: Anesthesia Plan Discussed Final Anesthetic Review Family History of Problems with Anesthesia: No History of Problems with Anesthesia: No NPO: Yes ASA Class: III Final Preanesthetic Review: No Changes in Pt Med Stat, Meds/Allgs Chart Reviewed, Consent Obtained/Reviewed and Anes Risks/Benef Reviewed Patient Risk: Intermediate Procedure Risk: Intermediate Anesthetic Plan Anesthetic Plan: GA and Agree w/ Assess. and Plan Disposition: Standard PACU
[2024-12-02] VITALS (9 sets, daily range): BP systolic 118–138; BP diastolic 69–100; PULSE 105–130; RESP 18–22; TEMP 36.1–36.2; O2SAT 98–100; BMI 24.8
[2024-12-02] MEDS: Lactated Ringers 1,000 ML 50 ML IVCONT (09:26)
--- NOTE | 2024-12-02 10:06 | MHC.SHP ---
Pre-Procedural Eval Section A - 24 Hr Update-Section A only Date of Service: 12/02/24 The patient is an INPATIENT: No Changes since office visit: No Cold of Flu in the past 2 weeks, No New Medical Problems, No Changes in Medication and No Patient answered all questions The patient has been examined within 24 hours of the surgical procedure. The History & Physical has been completed within 30 days and I have reviewed it.: Yes Section B - Complete if H&P > 30 days Chief Complaint: Bladder-neck obstruction Details of Present Illness: Progressive symptoms with 70 g prostate Relevant Family History (Specify if Yes): No Relevant Social History: None Present Medications: see Short Stay Collaborative assessment Medical History: Significant History History of Previous Operations: No relevant previous surgery Allergies: Allergies Allergy/AdvReac Type Severity Reaction Status Date / Time tamsulosin Allergy Unknown Unknown Verified 10/23/24 10:08 Review of Systems Sugical H&P ROS: Negative: Constitution, Cardiovascular, Respiratory, Neurological, Psychiatric, Hem-Onc, Allergic/Immunologic, Gastrointestinal, Genitourinary, Musculoskeletal, Integumentary, Endocrine and Eyes/Ears/Nose/Throat Exam Surgical H&P Exam: Normal: HEENT, Normal: Heart, Normal: Lungs, Normal: Extremities, Normal: Abdomen, Normal: Skin and Normal: Neurological Plan Diagnosis/Plan: Unchanged I have reviewed the history and physical and performed a pertinent physical examination on my patient. No changes have occurred unless specified. Time Spent With Patient Time: Total time managing care of this patient today ____ minutes.
--- NOTE | 2024-12-02 11:35 | W.PM.OPN ---
Operative Note Operative Note Date of Service: 12/02/24 Narrative: PreOperative Diagnosis: Bladder outlet obstruction Post Operative Diagnosis: Bladder outlet obstruction Procedure: GreenLight Laser Enucleation of the Prostate CPT 50861 Surgeon: Dr Erickson Huitron Anesthesia: General History of bladder outlet obstruction. Treated with alpha-maya and other medications. Still with symptoms. On cystoscopy in office has trilobar prostate. Recommendation for prostate procedure with laser enucleation of prostate. Risks and benefits have been discussed. Focus was placed on development of retrograde ejaculation which is a normal part of this procedure. Procedure: After informed consent was verified the patient was brought to the operating room and placed in a supine position. Anesthesia was administered per protocol. Patient was placed in modified dorsal lithotomy position and prepped and draped in a sterile fashion. Safety pause time-out was confirmed. Antibiotics have been given. A Twenty-four Mongolian laser cystoscope was inserted per urethra. No abnormalities were found of the anterior and bulbar urethra. The prostatic urethra shows trilobar hypertrophy. The bladder was examined and both ureteric orifices were seen in their normal positions away from the area of interest. Bladder trabeculation - Grade 2. Using a GreenLight laser with initial settings of 80 costello incisions were made at the 5 and 7 o'clock position. The incisions were taken down from the bladder neck down to the area just proximal of the veru. These were gradually deepened in order to define the lateral aspects of the median lobe area. The deep boundary of enucleation was defined by the prostate surgical capsule. Once clearly defined the grooves were extended in the lateral directions in order to create a deep groove. The median lobe was then ablated and enucleated tissue released into the bladder with the laser power increased to 120 W. Medium dinner size. Once the median lobe area had been cleared, attention was directed to the lateral lobes. Starting with the patient's left lateral lobe. First the 05:00 o'clock groove was further developed. This was moved in the lateral direction to undermine the tissue on the lateral side running from the bladder neck to the prostate apex. The ureteric orifice was used to guide incisions. The laser fiber was placed at the 1 o'clock position and a secondary groove was developed down to the level of prostatic capsule. The creation of a second deep groove defined a segment of intervening tissue similar to a slice of orange. At the apex of the prostate the laser was used to vertically link the two grooves releasing the intervening tissue and creating a segment of tissue. This tissue was then removed with a combination of enucleation and ablation working from the apex toward the bladder neck. A similar procedure was repeated on the patient's right-hand side. The only differences being the position of the lateral groove at he 7 o'clock position and the secondary groove at the 11 o'clock position, Otherwise the procedure was developed in a mirror fashion. Laser Power 130W. After the majority of tissue had been debulked remnant tissue was ablated with the side fire laser and the curve of the prostate followed up each side wall clearly defining the anterior remnant strip that remained between the 11 and 1 o'clock positions. At completion debris and pieces of prostate were removed from the bladder with irrigation. Both ureteric orifices were reviewed again in shown to be patent in away from any areas of energy damage. The apical area was reviewed and any stray mucosal ooze was controlled. A 22 Mongolian 30 cc balloon Farley catheter was placed into the bladder using a flexible stylet. Clear efflux was obtained upon irrigation with a Agnieszka piston syringe. 30 cc was placed in the balloon and gentle traction was placed. A snap was used to hold tension on the catheter to control bleeding during patient moved and transported. A drainage bag was placed. Once transportation is complete to the PACU the snap will be removed. The patient tolerated the procedure well, he was extubated in the operating and transferred in a stable condition to the recovery area. Total Power 230 kJ Lasing time 35:17 Pathology: Prostate tissue Drains: Farley catheter
[2024-12-02] MEDS: oxyCODONE HCl Immed Release 5 MG TABLET PO (12:15)
== END 2024-12-02 13:12 | disposition home or self-care (01) ==
PROVIDERS: PCP Pediatrics; Visit Provider Urology
PROC: (CPT 52648; principal; 2024-12-02 10:30)
DX: N40.1 Benign prostatic hyperplasia with lower urinary tract symptoms (principal); N32.0 Bladder-neck obstruction; R39.12 Poor urinary stream; N52.9 Male erectile dysfunction, unspecified; N20.0 Calculus of kidney; E29.1 Testicular hypofunction; I48.91 Unspecified atrial fibrillation; Z79.01 Long term (current) use of anticoagulants; Z79.899 Other long term (current) drug therapy; Z88.8 Allergy status to other drugs, medicaments and biological substances; Z98.890 Other specified postprocedural states
CPT/HCPCS: 52649; 88305; J0131; J1805; J1885; J1956; J2405; J3010

== ENCOUNTER → 2024-12-02 08:51 | Outpatient (BNV) | payer MEDICARE, OTHER, SELFPAY | PROVIDERS: PCP Pediatrics; Visit Provider Urology | DX: N32.0 Bladder-neck obstruction (principal) | CPT/HCPCS: 52649 ==

== ENCOUNTER → 2024-12-04 10:26 | Outpatient (BNVA) | payer MEDICARE, OTHER, SELFPAY | PROVIDERS: PCP Pediatrics; Visit Provider Urology | DX: N40.0 Benign prostatic hyperplasia without lower urinary tract symptoms (principal); Z98.890 Other specified postprocedural states; Z96.0 Presence of urogenital implants | CPT/HCPCS: 51700; 51798 ==

== ENCOUNTER 2025-01-02 08:43 | Outpatient (REF) | payer MEDICARE, OTHER, SELFPAY ==
--- OUTSIDE RECORDS SUMMARY | 2025-01-02 09:20 | XMS_ITS | Clinical Summary ---
Author Organization [facility] Address [address] [place] [id number] Phone Care Team Providers Care Dishwashing Machine Operator Name Role Phone Amando Kat MD Unavailable [phone] Erickson Huitron MD Unavailable Sukhdev Boogie MD Unavailable [phone] Tavo Flores DO Primary Care Provider Tavo Flores DO Unavailable [phone] Allergies Active Allergy Reactions Criticality Noted Date [...] was seen by Dr. Damion Hannah, our purchasing buyer and Dr. 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 [...] symptoms of CHAPARRO. He was referred to [facility] hypertrophy clinic Dr. Fredis Naqvi. [...] for consult with hypertrophic cardiomyopathy clinic at [facility]. Elevated BP without diagnosis of hypertension [...] him evaluated by Dr. Shantanu Hyde at [facility] for the same. Increase metoprolol to [...] follows with Dr. Mcclain for the same. 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 He will need to wait 2.5 [...] Department Care Team Description 10/07/2024 Orders Only [facility] [address] [place] [address] Provider, MD Luis from Last 3 Months Immunizations Immunization Administration [...] 06/30/2024 9:42 AM EDT Plan of Treatment Health Maintenance Due Date Last Done Comments ZOSTER VACCINES (2 of 3) 05/18/2011 03/23/2011 DEPRESSION SCREENING 05/20/2023 05/19/2022, 03/26/19 19 RSV VACCINE (1 - 1-dose 75+ series) 07/16/2023 CREATININE LEVEL 02/07/2024 02/06/2023, , 04/28/2021, Additional history exists POTASSIUM LEVEL 02/07/2024 02/06/2023, 04/13, 04/28/2021, Additional history exists INFLUENZA VACCINE (#1) 2024 , 03/17/2023, 12/29/2021, Additional history exists COVID-19 VACCINE ( season) [...] this topic Medical Devices Implanted Type Area Hydraulic Miner Blasting Device Identifier Shelf Expiration Date Model / [...] US Imaging??Report Only (10/07/2024 6:24 PM EDT) Historical Provider MD MARTINEZ OP Edited Re sult - Final * (ABNORMAL) Basic metabolic panel (02/06/2023 8:24 AM EST) SODIUM 139 133 - 146 mmol/L [facility] CHLORIDE 101 96 - 108 mmol/L [facility] POTASSIUM 4.9 3.3 - 5.1 mmol/L [facility] CO2 29 21 - 35 mmol/L [facility] BUN 31(H) 6 - 19 mg/dL [facility] CREATININE 1.60(H) 0.5 - 1.5 mg/dL [facility] GLUCOSE 102(H) 70 - 99 mg/dL [facility] CALCIUM 9.4 8.4 - 10.3 mg/dL [facility] EGFR 45(L) >59 mL/min/1.7 3m2 [facility] Comment:Estimated glomerular filtration rate calculated using the CKD-EPI refit equation. ANION GAP 14 10 - 20 mmol/L [facility] Blood 02/06/2023 8:24 AM EST 02/06/2023 8:27 AM EST Tavo Flores DO LAB BLOOD ORDERABLES Fi nal Result [facility] [address] [place] [address] * Hepatitis C antibody, qualitative (04/17/2019 8:57 AM EST) HCV NON-REACTIV E NON-REACTI VE [facility] Blood 04/17/2019 8:57 AM EST 04/17/2019 9:00 AM EST us Danilo Ann MD LAB BLOOD ORDERABLES Final Result [address] [address] from Last 3 Months or Most Recently Relevant to Health Maintenance Insurance MEDICARE PART A & B Member Subscriber Plan / Payer (Ef fective 2013-Present) Name:Brett Conde Member ID:[id number] Relation to Subscriber:Self Name:Brett Conde Subscriber ID:[id number] Payer ID:[id number] Group ID:Not on file Type:Medicare Address: [facility] [employer] [facility] [address] [address] [facility] MEDICARE SUPPLEMENT MEDICARE PART A & B [facility] MEDICARE SUPPLEMENT MEDICARE PART A & B [employer] [facility] [employer] MEDICARE SUPPLEMENT MEDICARE PART A & B [facility] MEDICARE SUPPLEMENT MEDICARE PART A & B [facility] [employer] MEDICARE SUPPLEMENT MEDICARE PART A & B [facility] [employer] MEDICARE SUPPLEMENT MEDICARE PART A & B [employer] MEDICARE SUPPLEMENT MEDICARE PART A & B [employer] MEDICARE SUPPLEMENT MEDICARE PART A & B [facility] [employer] [place] [phone] Advance Directives For more information, please contact: [phone] (9AM - 5PM [place], Monday-Monday) * Full Code (Presumed) (Latest Code Status on File) Date Activated Date Inactivated Comments 08/31/2017 7:22 AM 09/01/2017 4:20 AM Care Teams Dishwashing Machine Operator Relationship Specialty Start Date End Date Tavo Flores DO [address] [place] [address], [address] [place] [address] PCP - General Internal Medicine 09/16/21 Amando Kat MD [address] [place] [address] [address] [place] [address] Cardiology 04/17/20 Erickson Huitron MD [address] [place] [address] [address] [place] [address] Urology 04/17/20 [place] [address] Internal Medicine 04/26/21 Tavo Flores DO [address] [place] [id number] [email or web address] Insurance Assigned Provider 06/16/24 Additional Source Comments The information contained in this document represents components of the legal health record. It is not the complete legal health record.[facility]
--- OUTSIDE RECORDS SUMMARY | 2025-01-02 09:21 | XMS_ITS | Encounter Summary ---
Author Organization [facility] Address [address] [place] [address] Phone Care Team Providers Care Warehouse Director Name Role Phone Amando Kat MD Unavailable [phone] Erickson Huitron MD Unavailable [phone] Sukhdev Boogie MD Unavailable [phone] Tavo Flores DO Primary Care Provider Tavo Flores DO Unavailable [phone] Reason for Referral * MRI/CAT Scan - Closed Specialty Diagnoses / Procedures Referred By Nevaeh taylor Referred To Contact Radiology Diagnoses Low back pain, unspecified back pain laterality, unspecified chronicity, unspecified whether sciatica present Spinal stenosis of lumbar region, unspecified whether neurogenic claudication present Procedures MRI Lumbar Spine Paola Arizmendi MD [address] [place] [address] Phone: tel: fax: Referral ID Status Reason Start Date Expiration Date Visits Re quested Visits Authorized [id number] Closed 06/03/2024 06/03/2025 1 1 Encounter Details Date Type Department Care Team (Latest Contact Info) Description 06/03/2024 Transcribe Orders [facility] Department [address] [place] [address] Paola Arizmendi MD [address] [place] [address] Low back pain, unspecified back pain laterality, unspecified chronicity, unspecified whether sciatica present (Primary Dx); Spinal stenosis of lumbar region, unspecified whether neurogenic claudication present Social History Tobacco Use Types Packs/Day Years Used Date Smoking Tobacco: Former Cigarettes 1.5 12 1 967 - 1978 Smokeless Tobacco: Never Alcohol Use Standard Drinks/Week Comments Yes 10 [...] Orientation Straight 03/21/2019 1: 24 PM EST documented as of this encounter Plan of Treatment Not on file documented as of this encounter Results * MRI LUMBAR SPINE (NEURO) WITH AND WITHOUT CONTRAST (07/06/2024 11:54 AM EDT) Anatomical Region Laterality Modality L-spine Magnetic Resonan ce 07/10/2024 9:46 AM EDT Impressions 07/10/2024 9:57 AM EDT 1. Status post interval L2-L3 and L3-L4 laminectomies with interval improvement in spinal canal stenoses at these levels, with moderate residual spinal canal stenosis at L2-L3 and mild residual spinal canal stenosis at L3-L4. 2. Interval worsening of multilevel degenerative disc disease changes of the lumbar spine as detailed above, now with severe spinal canal stenosis at L4-L5. Varying degrees of bilateral neural foramina narrowing and the lumbar spine as above. Narrative 07/10/2024 9:57 AM EDT MRI LUMBAR SPINE (NEURO) WITH AND WITHOUT CONTRAST Referring clinician's provided indication for this examination in Epic: Outside Radiology Order; low back pain TECHNIQUE: MRI LUMBAR SPINE (NEURO) WITH AND WITHOUT CONTRAST Multi-sequence, multi-planar MRI of the lumbar spine was performed without and with intravenous contrast. COMPARISON: MRI LUMBAR SPINE (NEURO) WITHOUT CONTRAST FINDINGS: LUMBAR SPINE: Alignment and Vertebrae: There is normal lumbar lordosis. There is a stepwise retrolisthesis of L1-L5, unchanged. Vertebral body heights are maintained without evidence of compression fracture. Patient is status post interval L2-L3 and L3- L4 laminectomy. Marrow: No focal aggressive osseous lesions are identified. Discs and Endplates: Multilevel disc desiccation and disc height loss is seen throughout the visualized lower thoracic spine and lumbar spine accompanied by multilevel bone marrow edema along the opposing endplates. Conus: Conus medullaris terminates at L1. The cauda equina nerve roots are unremarkable. Contrast: No abnormal enhancement. Soft Tissue: The visualized retroperitoneum is unremarkable. The paraspinal musculature is unremarkable with the exception of fatty atrophy in the lower back. Other Findings: None. Findings by level: T10-T11: There is diffuse disc bulge with marked bilateral facet hypertrophy, resulting in mild spinal canal stenosis and moderate bilateral neural foramina narrowing. T11-T12: There is mild diffuse disc bulge with bilateral facet hypertrophy and ligamentum flavum thickening, resulting in mild spinal canal stenosis and moderate bilateral neural foramina narrowing. Overall, degenerative disc disease changes appear slightly worsened compared to prior study. T12-L1: There is mild diffuse disc bulge with bilateral facet hypertrophy and ligamentum flavum thickening, resulting in mild spinal canal stenosis and moderate bilateral neural foramina narrowing. Overall, degenerative disc disease changes appear similar compared to prior study. L1-L2: There is diffuse disc bulge with bilateral facet hypertrophy and ligamentum flavum thickening, resulting in mild spinal canal stenosis and mild bilateral neural foramina narrowing. Overall, degenerative disc disease changes appear similar compared to prior study. L2-L3: Laminectomy changes are seen. There is diffuse disc bulge with bilateral facet hypertrophy. Overall, there is moderate spinal canal stenosis at this level, improved compared to prior study. There is moderate bilateral neural foramina narrowing, slightly worsened compared to prior study. L3-L4: Laminectomy changes are seen with interval resolution of previously identified significant spinal canal stenosis. There is mild residual spinal canal stenosis at this level. There is moderate bilateral neural foramina narrowing, unchanged. L4-L5: There is diffuse disc bulge with bilateral facet hypertrophy and ligamentum flavum thickening, resulting in severe spinal canal stenosis, worsened compared to prior study. There is moderate left and severe right neural foramina narrowing. Overall, degenerative disc disease changes appear worsened compared to prior study. L5-S1: There is diffuse disc bulge with bilateral facet hypertrophy and ligamentum flavum thickening, resulting in mild spinal canal stenosis and effacement of bilateral subarticular zones. There is moderate bilateral neural foramina narrowing, right more than left. Overall, degenerative disc disease changes appear similar compared to prior study. Procedure Note Francisca Chambers MD - 07/10/2024 MRI LUMBAR SPINE (NEURO) WITH AND WITHOUT CONTRAST Referring clinician's provided indication for this examination in Epic:Outside Radiology Order; low back pain TECHNIQUE: MRI LUMBAR SPINE (NEURO) WITH AND WITHOUT CONTRAST Multi-sequence, multi-planar MRI of the lumbar spine was performed withoutand with intravenous contrast. COMPARISON: MRI LUMBAR SPINE (NEURO) WITHOUT CONTRAST FINDINGS: LUMBAR SPINE: Alignment and Vertebrae: There is normal lumbar lordosis. There is astepwise retrolisthesis of L1-L5, unchanged. Vertebral body heights aremaintained without evidence of compression fracture. Patient is statuspost interval L2-L3 and L3-L4 laminectomy. Marrow: No focal aggressive osseous lesions are identified. Discs and Endplates: Multilevel disc desiccation and disc height loss isseen throughout the visualized lower thoracic spine and lumbar spineaccompanied by multilevel bone marrow edema along the opposingendplates. Conus: Conus medullaris terminates at L1. The cauda equina nerve roots areunremarkable. Contrast: No abnormal enhancement. Soft Tissue: The visualized retroperitoneum is unremarkable. Theparaspinal musculature is unremarkable with the exception of fatty atrophyin the lower back. Other Findings: None. Findings by level: T10-T11: There is diffuse disc bulge with marked bilateral facethypertrophy, resulting in mild spinal canal stenosis and moderatebilateral neural foramina narrowing. T11-T12: There is mild diffuse disc bulge with bilateral facet hypertrophyand ligamentum flavum thickening, resulting in mild spinal canal stenosisand moderate bilateral neural foramina narrowing. Overall, degenerativedisc disease changes appear slightly worsened compared to prior study. T12-L1: There is mild diffuse disc bulge with bilateral facet hypertrophyand ligamentum flavum thickening, resulting in mild spinal canal stenosisand moderate bilateral neural foramina narrowing. Overall, degenerativedisc disease changes appear similar compared to prior study. L1-L2: There is diffuse disc bulge with bilateral facet hypertrophy andligamentum flavum thickening, resulting in mild spinal canal stenosis andmild bilateral neural foramina narrowing. Overall, degenerative discdisease changes appear similar compared to prior study. L2-L3: Laminectomy changes are seen. There is diffuse disc bulge withbilateral facet hypertrophy. Overall, there is moderate spinal canalstenosis at this level, improved compared to prior study. There ismoderate bilateral neural foramina narrowing, slightly worsened comparedto prior study. L3-L4: Laminectomy changes are seen with interval resolution of previouslyidentified significant spinal canal stenosis. There is mild residualspinal canal stenosis at this level. There is moderate bilateral neuralforamina narrowing, unchanged. L4-L5: There is diffuse disc bulge with bilateral facet hypertrophy andligamentum flavum thickening, resulting in severe spinal canal stenosis,worsened compared to prior study. There is moderate left and severe rightneural foramina narrowing. Overall, degenerative disc disease changesappear worsened compared to prior study. L5-S1: There is diffuse disc bulge with bilateral facet hypertrophy andligamentum flavum thickening, resulting in mild spinal canal stenosis andeffacement of bilateral subarticular zones. There is moderate bilateralneural foramina narrowing, right more than left. Overall, degenerativedisc disease changes appear similar compared to prior study. IMPRESSION: 1. Status post interval L2-L3 and L3-L4 laminectomies with intervalimprovement in spinal canal stenoses at these levels, with moderateresidual spinal canal stenosis at L2-L3 and mild residual spinal canalstenosis at L3-L4. 2. Interval worsening of multilevel degenerative disc disease changes ofthe lumbar spine as detailed above, now with severe spinal canal stenosisat L4-L5. Varying degrees of bilateral neural foramina narrowing and thelumbar spine as above. Paola Arizmendi MD IMG MR XSPECIALTY Final Resul t documented in this encounter Visit Diagnoses Diagnosis Low back pain, unspecified back pain laterality, unspecified chronicity, unspecified whether sciatica present- Primary Spinal stenosis of lumbar region, unspecified whether neurogenic claudication present Low back pain, unspecified back pain laterality, unspecified chronicity, unspecified whether sciatica present Spinal stenosis of lumbar region, unspecified whether neurogenic claudication present documented in this encounter Additional Health Concerns Assessment Noted Time PHQ-9 Depression Total Score: 3 03/26/19 19 10:48 AM EST PHQ-2 Depression Total Score: 0 05/20/19 23 9:02 AM EST documented as of this encounter Care Teams Warehouse Director Relationship Specialty Start Date End Date Tavo Flores DO [address] [place] [address], [address] [place] [address] [email or web address] PCP - General Internal Medicine 09/16/21 Amando Kat MD [address] [place] [address] [address] [place] [address] Cardiology 04/17/20 Erickson Huitron MD [address] [place] [address] [address] [place] [address] Urology 04/17/20 [place] [address] Internal Medicine 04/26/21 Tavo Flores DO [address] [place] [address], [address] [place] [address] [email or web address] Insurance Assigned Provider 06/16/24 documented as of this encounter Additional Source Comments The information contained in this document represents components of the legal health record. It is not the complete legal health record.[facility]
--- OUTSIDE RECORDS SUMMARY | 2025-01-02 09:21 | XMS_ITS | Encounter Summary ---
Author Organization [facility] Address [address] [place] [address] Phone Care Team Providers Care Supervisor Shop Name Role Phone Amando Kat MD Unavailable [phone] Erickson Huitron MD Unavailable Sukhdev Boogie MD Unavailable [phone] Tavo Flores DO Primary Care Provider Tavo Flores DO Unavailable [phone] Encounter Details Date Type Department Care Team (Late st Contact Info) Description 06/20/2024 Procedure Pass [place] Admitting Dept - Virtual Department [address] [place] [id number] Social History Tobacco Use Types Packs/Day Years Used Date Smoking Tobacco: Former Cigarettes 1.5 12 1 967 - 1979 Smokeless Tobacco: Never Alcohol Use Standard Drinks/Week [...] Diagnoses Not on filedocumented in this encounter Additional Health Concerns Assessment Noted Time PHQ-9 Depression Total Score: 3 03/26/19 19 10:48 AM EST PHQ-2 Depression Total Score: 0 05/20/19 23 9:02 AM EST documented as of this encounter Care Teams Supervisor Shop Relationship Specialty Start Date End Date Tavo Flores DO [address] [place] [id number] [email or web address] PCP - General Internal Medicine 09/16/21 Amando Kat MD [address] [place] [address] [address] [place] [address] Cardiology 04/17/20 Erickson Huitron MD [address] [place] [address] [address] [place] [address] Urology 04/17/20 [place] [address] Internal Medicine 04/26/21 Tavo Flores DO [address] [place] [address], [address] [place] [phone] [email or web address] Insurance Assigned Provider 06/16/24 documented as of this encounter Additional Source Comments The information contained in this document represents components of the legal health record. It is not the complete legal health record.[facility]
--- OUTSIDE RECORDS SUMMARY | 2025-01-02 09:21 | XMS_ITS | Encounter Summary ---
Author Organization [facility] Address [address] [place] [phone] Phone Care Team Providers Care Spray Foam Installer Name Role Phone Danilo Ann MD Primary Care Provider + [phone] Danilo Ann MD Unavailable [phone] Amando Kat MD Unavailable [phone] Erickson Huitron MD Unavailable [phone] Sukhdev Boogie MD Unavailable [phone] Tavo Flores DO Primary Care Provider Danilo Ann MD Unavailable [phone] Tavo Flores DO Unavailable [phone] Encounter Details Date Type Department Care Team (Latest Contact Info) Description 06/08/[address] [facility] [address] [place], [place] [id number] Edmond Mesa MD [address] [place] [address], [address] [place] [address] [email or web address] Chronic kidney disease (CKD) stage G3a/A1, moderately decreased glomerular filtration rate (GFR) between 45-59 mL/min/1.73 square meter and albuminuria creatinine ratio less than 30 mg/g (Primary Dx) Social History Tobacco Use Types Packs/Day Years [...] documented as of this encounter Results * (ABNORMAL) Basic metabolic panel (06/08/2020 3:13 PM EDT) SODIUM 140 133 - 146 mmol/L [facility] CHLORIDE 103 96 - 108 mmol/L [facility] POTASSIUM 4.8 3.3 - 5.1 mmol/L [facility] CO2 28 21 - 35 mmol/L [facility] BUN 28(H) 6 - 19 mg/dL [facility] CREATININE 1.30 0.5 - 1.5 mg/dL [facility] GLUCOSE 87 70 - 99 mg/dL [facility] CALCIUM 9.2 8.4 - 10.3 mg/dL [facility] EGFR 55(L) >59 mL/min/1.7 3m2 [facility] Comment:Estimated glomerular filtration rate calculated using the CKD-EPI equation. ANION GAP 14 10 - 20 mmol/L [facility] Blood 06/08/2020 3:13 PM EDT 06/08/2020 3:14 PM EDT us Edmond Mesa MD LAB BLOOD ORDERABLES Final Re sult [address] [address] documented in this encounter Visit Diagnoses Diagnosis Chronic kidney disease (CKD) stage G3a/A1, moderately decreased glomerular filtration rate (GFR) between 45-59 mL/min/1.73 square meter and albuminuria creatinine ratio less than 30 mg/g- Primary documented in this encounter Additional Health Concerns Infection Onset Date Last Indicated Resolved Time CoV-Presumed 08/03/2021 08/03/2021 08/24/2021 1:21 AM EDT Assessment Noted Time PHQ-9 Depression Total Score: 3 03/26/19 19 10:48 AM EST PHQ-2 Depression Total Score: 2 04/17/19 21 10:18 AM EST documented as of this encounter Care Teams Spray Foam Installer Relationship Specialty Start Date End Date Danilo Ann MD [address] [address] [email or web address] PCP - General Internal Medicine 01/18/17 09/15/21 Tavo Flores DO [address] [place] [address], [address] [place] [address] [email or web address] PCP - General Internal Medicine 09/16/21 Danilo Ann MD [address] [place] [address] [email or web address] Insurance Assigned Provider 10/14/17 03/15/22 Amando Kat MD [address] [place] [address] [address] [place] [address] Cardiology 04/17/20 Erickson Huitron MD [address] [place] [address] [address] [place] [address] Urology 04/17/20 [place] [address] Internal Medicine 04/26/21 Danilo Ann MD [address] [place] [phone] [email or web address] Insurance Assigned Provider 10/14/17 03/19/22 Tavo Flores DO [address] [place] [address], [address] [place] [address] [email or web address] Insurance Assigned Provider 06/16/24 documented as of this encounter Additional Source Comments The information contained in this document represents components of the legal health record. It is not the complete legal health record.[facility]
--- OUTSIDE RECORDS SUMMARY | 2025-01-02 09:21 | XMS_ITS | Data Portability ---
Author Organization [place] - [facility], All[facility] Address [address] [place] [address] Care Team Providers Care Chip Separator Name Role Phone DANIEL EVANGELISTA Primary Care Provider [phone] Assessment Encounter Date Assessment Date Assessment LastModified [...] were unable to pair it to the [employer] application. Patient does not appear bothered by this but I encouraged him to try pairing at home after we called [employer] and they explained that a better cell phone signal may be necessary. We can revisit this at a later appointment. Regarding the earmold, a new impression was taken of his left ear and sent with the earmold to [facility] for remake. Patient has a scheduled appointment [...] reported satisfaction with sound quality and output. [email or web address] Not available 02/23/2024 15:01:28 03/14/2024 03/14/2024 03-14-2024 [...] hearing aids. Patient was given paperwork for [employer] and I filled out the areas pertaining to the hearing aid purchase. He understands if there is a problem with reimbursement, he needs to call the insurance company himself. He has the date for warranty expiration. He understands we would like to return the aids to [facility] prior to expiration, to have the aids cleaned, checkes, and THE BATTERIES REPLACED. Return PRN Hearing Aid Fitting Details Date: Multi Media Specialist & Model: Phonak Ruth L 90-MO's Color: Silver ceballos Ear coupling: tone hook Serial Numbers Right: [id number] Left: [id number] Warranty Expiration: 03-05-2027 Accessories: Skeleton molds with [...] low so he placed it in the wire charger for a few seconds, then was able to continue using is for the rest of the day. For this reason, I suggested we send it to [facility] to be checked. He may be having [...] he can put the aid(s) in the wire charger for 30-60 minutes and will get hours [...] sensorin eural hearing loss of right ear [id number] 105 Active 2016 Mixed 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, unilater al, right ear with restrict ed hearing on the contrala teral side; Note: Date Diagnose d: 7 11:57 AM (H90.A31 ) Not Available [facility] 4 03:13:03 Sensorin eural hearing loss in left ear [id number] 109 Active 2016 Sensorin eural hearing loss, unilater al, left ear, with restrict ed hearing on the contrala teral side; Note: Date Diagnose d: 7 11:57 AM (H90.A22 ) Not Available [facility] 4 03:13:04 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 70871724 Completed 201710/13/2023 Otoscler osis involvin g oval window, oblitera tive, right ear; Note: Date Diagnose d: 05/15/2017 12:06 PM (H80.11) Not Available [facility] 4 03:13:03 Otoscler osis 79471150 Completed 201710/13/2023 Unspecif ied otoscler osis, left ear; Note: Date Diagnose d: 05/15/2017 12:06 PM (H80.92) Unspec ified otoscler osis, bilatera l; Note: Date Diagnose d: 7 11:58 AM (H80.93) ; Start Date : 09/01/19 Not Available [facility] 4 03:13:04 Follow-u p visit Active 2017 Medical surveill ance followin g complete d treatmen t; Note: Date Diagnose d: 8 10:30 AM (Z09) Not Available [facility] 4 03:13:03 Abnormal auditory percepti on 05897949 Active 2017 Other abnormal auditory percepti ons, right ear; Note: Date Diagnose d: 8 2:49 PM (H93.291 ) Not Available [facility] 4 03:13:04 Mixed 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, bilatera l 729420110 Active 2019 Mixed 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, bilatera l; Note: Date Diagnose d: 0 3:55 PM (H90.6) Not Available [facility] 4 03:13:05 Acute serous otitis media of left ear [id number] 65370 Completed 201910/13/2023 Acute serous otitis media, left ear; Note: Date Diagnose d: 0 4:54 PM (H65.02) Not Available [facility] 4 03:13:04 Impacted cerumen in left ear 83872799903 84808 Active 2019 Impacted cerumen, left ear; Note: Date Diagnose d: 0 8:44 AM (H61.22) Not Available [facility] 4 03:13:04 Otoscler osis 75863589 Active 2023 HAILEE WOODRUFF MD [address] [place] [address],[place] [address], [place], [address] , [facility] [facility] 4 12:52:57 Sensorin eural hearing loss of bilatera l ears 776367293 Active 2023 MAI FULLER MA, CCC-A [address] [place] [address],[place] [address], [place], [address] , [facility] - [facility] 15:18:30 Problem Notes None recorded. Procedures Surgical History Date Name Laterality Status Provider Name and Address Organization Details Recorded Time 11/29/2023 Comp Audio with Tymps - 21463 & 86228 completed MAI FULLER MA, [facility] [address] [facility] [address], [place], [address], [facility] 11/29/2023 09:33:52 Imaging Results None recorded. Procedure [...] 24 hr 07/26 completed Medicati on ID: [id number] D uration Value: 90 Reason: () Brand Name: metoprol ol succinat e Send Method: E-Prescr ibed Sub s Allowed: subs OK Speci al Instruct ion: TAKE 1 TABLET BY MOUTH TWICE A DAY Medi cationGe nericNam e: metoprol ol succinat e Not Available Not Available Not Available hydrocodo ne 5 mg-acetam inophen 325 mg tablet 10/17 completed Medicati on ID: [id number] D uration Value: 3 Reason: () Brand [...] by mouth 11/28 completed Medicati on ID: [id number] D uration Value: 3 Prescri bed By [...] eye drops 11/28 completed Medicati on ID: [id number] D uration Value: 10 Prescri bed By [...] mg capsule 2019 active Medicati on ID: [id number] D uration Value: 5 Brand Name: oseltami [...] 24 hr 2017 active Medicati on ID: [id number] D uration Value: 30 Brand Name: metoprol [...] mg tablet 2017 active Medicati on ID: [id number] D uration Value: 45 Brand Name: Multaq S end Method: E-Prescr ibed Sub s Allowed: subs OK Speci al Instruct ion: TAKE 1 TABLET BY MOUTH TWICE A DAY WITH MEALS Me dication GenericN kobe: Multaq Not Available Not Available Not Available testoster one 10 mg/0.5 gram/actu ation transderm al gel pump 11/28 completed Medicati on ID: [id number] D uration Value: 24 Brand Name: oren [...] Diagnosis SNOMED-CT Code Diagnosis ICD10 Code Diagnosis IMO Codes Diagnosis Note [id number] HAILEE WOODRUFF MD [facility] [address] [address] 11/29/2023 08:20:20 11/29/2023 09:56:38 Otosclerosis 23698132 H80.93 Sensorineu ral hearing loss in left ear 5490767997 9109 H90.A22 Audiologic al evaluation results: Right ear: Mild to profound mixed hearing loss with excellent word recognitio n. Left ear: mild sloping to profound SNHL with excellent word recognitio n. Tympanomet ry: Right Ear:Type Ad Left Ear:Type A Mixed cond uctive and sensorineural hearing loss of right ear 8659868568 9105 H90.A31 [id number] MAI FULLER MA, CCC-A [facility] [address] [address] 11/29/2023 09:33:21 11/29/2023 11:53:20 Sensorineural hearing loss in left ear 5703734841 9109 H90.A22 Audiologic al evaluation results: Right ear: Mild to profound mixed hearing loss with excellent word recognitio n. Left ear: mild sloping to profound SNHL with excellent word recognitio n. Tympanomet ry: Right Ear:Type Ad Left Ear:Type A Mixed cond uctive and sensorineural hearing loss of right ear 1464175412 9105 H90.A31 MAI FULLER [place], [facility] [place] [address] [facility],[place] [address] [facility] [address] 12/13/2023 13:05:09 12/14/2023 07:10:04 Sensorineural hearing loss of bilateral ears 293329064 H90.3 11700 MAI FULLER MA, [facility] [place] [facility] [place] [address] [facility],[place] [address] [facility] [address] 01/02/2024 11:01:33 01/02/2024 11:28:39 Sensorineural hearing loss of bilateral ears 322811279 H90.3 44707 MAI FULLER MA, CCC-A [place] [facility] [place] [address] [facility],[place] [address] [place] [address] 01/10/2024 15:53:56 01/15/2024 07:06:45 Mixed conductive and sensorineural hearing loss of right ear 9007701899 9105 H90.A31 Mixed cond uctive and sensorineural hearing loss, bilateral 617858047 H90.6 [id number] MAI FULLER [place], [facility] [place] 100 [facility] ite 100 [place] [address] 02/13/2024 10:01:00 02/14/2024 07:57:31 Mixed conductive and sensorineural hearing loss of right ear 5846777302 9105 H90.A31 43907 MAI FULLER MA, [facility] [place] [facility] [place] [address] [facility],[place] [address] [place] [address] 02/20/2024 09:01:19 02/21/2024 07:48:56 Mixed conductive and sensorineural hearing loss, bilateral 019202503 H90.6 48956 ESTEPHANIA CLINE [facility] [place] [facility] [place] [address] [facility],[place] [address] [place] [address] 02/23/2024 14:33:59 02/26/2024 08:45:33 Sensorineural hearing loss of bilateral ears 037574880 H90.3 00602 MAI FULLER MA, CCC-A [place] [facility] [place] [address] [facility],[place] [address] [place] [address] 03/14/2024 12:58:07 03/16/2024 07:48:56 Otosclerosis 08438611 H80.93 [id number] MAI FULLER [place], [facility] [place] [address] [facility], [address] 100 [place] [address] 03/26/2024 10:58:36 03/27/2024 08:26:53 Sensorineural hearing loss in left ear 5686248943 9109 H90.A22 22188 MAI FULLER MA, [facility] [place] [facility] [place] [address] [facility] 100 [place] [address] 06/04/2024 09:58:49 06/10/2024 14:52:03 Otosclerosis 02800709 H80.93 Health Concerns Section Related Observation LastModified by Organization Detai ls LastModified Time None Recorded Concern Status LastModified by Organization Details LastModified Time None Recorded Advance Directives Directive None Recorded Payers Insurance Date Sequence Insurance Name Policy Number Policy Johnson Covered Member ID Johnson Member ID Guarantor Name 06/04/2024 1 [place] [employer] Brett Conde Jr [id number] Brett Conde Jr 06/10/2024 2 [facility] INDEMNITY PLAN (MEDICARE SUPPLEMENT) [id number] Margie Conde [id number] Brett Conde Jr Notes Date Note Type [...] making beeping chimes. ESTEPHANIA CLINE, Jonathan [address] [facility],[place] [address], [place], [address], [facility] - [facility] 02/23/2024 15:29:36 06/04/2024 text/html Longstanding hearing loss and longstanding hearing aid use. I believe his current set of Phonak Ruth's are his third set of hearing aids. MAI FULLER MA, CCC-A [address] [facility] [address], [place], [address], [facility] - [facility] 06/04/2024 10:54:19
--- OUTSIDE RECORDS SUMMARY | 2025-01-02 09:21 | XMS_ITS | Encounter Summary ---
Author Organization [facility] Address [address] [place] [address] Phone Care Team Providers Care Ball Holder Name Role Phone Amando Kat MD Unavailable [phone] Erickson Huitron MD Unavailable Sukhdev Boogie MD Unavailable [phone] Tavo Flores DO Primary Care Provider Tavo Flores DO Unavailable [phone] Encounter Details Date Type Department Care Team (Late st Contact Info) Description 06/03/2024 Procedure Pass [facility], [address] [address] Social History Tobacco Use Types Packs/Day Years [...] 1:24 PM EST Sexual Orientation Straight 03/21/2019 1 :24 PM EST documented as of this encounter Plan of Treatment Not on file documented as of this encounter Visit Diagnoses Not on filedocumented in this encounter Additional Health Concerns Assessment Noted Time PHQ-9 Depression Total Score: 3 03/26/19 19 10:48 AM EST PHQ-2 Depression Total Score: 0 05/20/19 23 9:02 AM EST documented as of this encounter Care Teams Ball Holder Relationship Specialty Start Date End Date Tavo Flores DO [address] [place] [address] PCP - General Internal Medicine 09/16/21 Amando Kat MD [address] [place] [address] [address] [place] [address] Cardiology 04/17/20 Erickson Huitron MD [address] [place] [address] [address] [place] [address] Urology 04/17/20 [place] [address] Internal Medicine 04/26/21 Tavo Flores DO [address] [place] [address], [address] [place] [address] [email or web address] Insurance Assigned Provider 06/16/24 documented as of this encounter Additional Source Comments The information contained in this document represents components of the legal health record. It is not the complete legal health record.[facility]
--- OUTSIDE RECORDS SUMMARY | 2025-01-02 09:21 | XMS_ITS | Clinical Summary ---
Author Organization [facility] Address [address] [place] [address] Care Team Providers Care Shoemaking Finisher Name Role Phone Danilo Ann MD Primary Care Provider [phone] Social History Tobacco Use Types Packs/Day Years [...] age to complete this topic Care Teams Shoemaking Finisher Relationship Specialty Start Date End Date Danilo Ann MD [address] [place] [address] PCP - General Internal Medicine 01/14/19
--- OUTSIDE RECORDS SUMMARY | 2025-01-02 09:21 | XMS_ITS | Encounter Summary ---
Author Organization [facility] Address [address] [place] [address] Phone Care Team Providers Care Correspondence Specialist Name Role Phone Danilo Ann MD Primary Care Provider [phone] Danilo Ann MD Unavailable [phone] BuffAmando camacho MD Unavailable [phone] Erickson Huitron MD Unavailable KeaganSukhdev guillen MD Unavailable [phone] Tavo Flores DO Primary Care Provider Danilo Ann MD Unavailable [phone] Tavo Flores DO Unavailable [phone] Encounter Details Date Type Department Care Team (Late st Contact Info) Description 01/20/2017 Procedure Pass [facility] Cardiovascular And Interventional Radiology [address] [place] [address] Social History Tobacco Use Types Packs/Day Years Used Date Smoking Tobacco: Former Cigarettes 1.5 15 Comments:Quit 1973 Alcohol Use Standard Drinks/Week Comments Yes 7 (1 standard drink = 0.6 oz pur e alcohol) Sex and Gender Information Value Date [...] filedocumented in this encounter Additional Health Concerns Infection Onset Date Last Indicated Resolved Time CoV-Presumed 08/03/2021 08/03/2021 08/24/2021 1:21 AM EDT Assessment Noted Time PHQ-2 Depression Total Score: 2 06/02/19 17 4:40 PM EDT documented as of this encounter Care Teams Correspondence Specialist Relationship Specialty Start Date End Date Danilo Ann MD [address] [address] [email or web address] PCP - General Internal Medicine 01/18/17 09/15/21 Tavo Flores DO [address] [place] [address], [address] [place] [address] [email or web address] PCP - General Internal Medicine 09/16/21 Danilo Ann MD [address] [place] [address] [email or web address] Insurance Assigned Provider 10/14/17 03/15/22 Amando Kat MD [address] [place] [address] [address] [place] [address] Cardiology 04/17/20 Erickson Huitron MD [address] [place] [address] 240 [place] [address] Urology 04/17/20 [place] [address] Internal Medicine 04/26/21 Danilo Ann MD [address] [place] [address] [email or web address] Insurance Assigned Provider 10/14/17 03/19/22 Tavo Flores DO [address] [place] [address], [address] [place] [address] [email or web address] Insurance Assigned Provider 06/16/24 documented as of this encounter Additional Source Comments The information contained in this document represents components of the legal health record. It is not the complete legal health record.[facility]
--- OUTSIDE RECORDS SUMMARY | 2025-01-02 09:21 | XMS_ITS | Clinical Summary ---
Author Organization [facility] Address [address] [facility] [place] [address] Phone Care Team Providers Care Full Time Paramedic Name Role Phone Unavailable Primary Care Provider Unavailabl e Allergies No known active allergies Medications terazosin (HYTRIN) 5 mg capsule Take 1 capsule (5 mg total) by mouth at bedtime. Active testosterone 20.25 mg/1.25 gram (1.62 %) gel in metered-dose pump Apply topically 1 (one) time each day. 06/13/19 20 Active apixaban (ELIQUIS) 5 mg tablet Take 1 tablet (5 mg total) by mouth 2 (two) times a day. 12/03/19 20 Active tadalafiL (CIALIS) 5 mg tablet Take 1 tablet (5 mg total) by mouth 1 (one) time each day. 12/03/19 20 Active tafamidis (Vyndamax) 61 mg capsule Take 61 mg by mouth daily. Active cholecalciferol , vitamin D3, (VITAMIN D3 ORAL) Take 1,000 Units by mouth 1 (one) time each day. Active finasteride (PROSCAR) 5 mg tablet Take 1 tablet (5 mg total) by mouth 1 (one) time each day. Do not crush, chew, or split. Active torsemide (DEMADEX) 10 mg tablet TAKE 1 TABLET BY MOUTH 1 TIME EACH DAY. 90 tablet 1 07/31/19 25 Active Additional Information Patient taking differently: 20 mgoral Daily, Reported on 11/14/2024 irbesartan (AVAPRO) 75 mg tabletIndicatio ns:Essential (primary) hypertension TAKE 1 TABLET BY MOUTH EVERY DAY 90 tablet 1 12/14/19 25 Active irbesartan (AVAPRO) 75 mg tabletIndicatio ns:Essential (primary) hypertension TAKE 1 TABLET BY MOUTH EVERY DAY 90 tablet 1 06/20/19 25 025 Discontinued Active Problems Problem Noted [...] therapy which he has already done at [facility], spinal cord stimulator and the Intracept procedure. [...] discuss injections and the Intracept procedure at [facility] and he was given a brochure on it. Before considering any intervention, I am going to send him for new lumbar spine MRI since his pain has worsened and the previous study is 2 years old. In the interim, he will continue using marijuana and walking 1 to 2 miles per day as tolerated. Prediabetes 01/19/2021 Wild-type transthyretin-rela marcelo (ATTR) amyloidosis ([facility] V24, [facility] V28) 07/06/2020 Assessment & Plan (04/05/2024 3:58 PM EST): Patient continues to follow with Dr. Boogie at [facility] for history of wild-type ATTR amyloidosis. His condition appears to be stable and he appears euvolemic at this time. He will continue on tafamidis and furosemide as prescribed. Stage 3 chronic kidney disease ([facility] V24, [facility] V28) 06/03/2020 Hyperlipidemia 06/02/2020 Assessment & Plan (11/14/2024 11:56 AM EDT): Lipids are monitored by his primary care provider. 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 He is being treated with tafamidis. His symptoms remain stable. No changes at this time. Assessment & Plan (07/24/2024 3:45 PM EDT): Patient with a amyloid myopathy. Followed at the amyloid clinic [facility]. Patient with no chest pain pressure shortness of breath. No syncope presyncope or palpitations. Patient's echocardiograms are followed in [place] were not can repeat them locally. He [...] and permanent pacemaker placement. He has a ZKG2AQ4-ZJLf score of 4 and continues on Eliquis [...] as prescribed. 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 Resolved Problems Problem Noted Date Diagnosed Date Resolved Date Abnormal blood level of uric acid 01/19/2021 11/14/2024 Elevated BP without diagnosis of hypertension 08/22/1911/14/2024 Functional weakness 06/13/2019 11/15/19 25 Adjustment reaction 09/24/2018 11/15/19 25 Night sweats 01/29/2018 11/14/2024 Serum albumin decreased 01/29/201806/2024 Encounters Date Type Department Care Team Description 12/19/2024 Telephone [facility] [address] [place] [address] [address] [place] [address] Amando Kat MD 12/17/2024 Telephone [facility] [address] [place] [address] [place] [address] Amando Kat MD 12/16/2024 Telephone [facility] [address] [place] [address] [address] [place] [address] Amando Kat MD 12/04/2024 Telephone [facility] [address] [place] [address] Dr [address] [place] [address] Amando Kat MD 11/18/[address] [facility] [address] [facility] [address] [place] [address] Provider, Not In System 11/14/2024 8:10 AM EDT Consult [facility] [address] [facility] [address] [place] [address] Heather Mederos, MANUELA Amyloid myopathy ([facility] V24, [facility] V28) (Primary Dx); Primary hypertension; Longstanding persistent atrial fibrillation ([facility] V24, [facility] V28); Mixed hyperlipidemia; Preoperative cardiovascular examination 10/25/2024 Telephone [facility] [address] [facility] [address] [place] [address] Amando Kat MD from Last 3 Months Immunizations Immunization Administration Dates Next Due Influenza Quadravalent, 0.5ml [...] Date Site/Laterality Comments TOTAL KNEE ARTHROPLASTY PROCEDURE: [place] ARTHRP KNE CONDYLE&PLATU MEDIAL&LAT COMPARTMENTS OTHER SURGICAL HISTORY PROCEDURE: MA ARTHRP ACETBLR/PROX FEM PROSTC AGRFT/ALGRFT SHOULDER SURGERY Right PROCEDURE: HISTORICAL SHOULDER SURGERY BACK SURGERY 01/22/2019 PROCEDURE: HISTORICAL BACK SURGERY; COMMENT: L2-3 L3-4 decomp Medical History Medical History Date Comments A-fib ([facility] V24, [facility] V28) DX:A-fib ([facility]) Amyloidosis ([facility] V24, [facility] V28) DX:Amyloidosis ([facility]) Sensorineural hearing loss DX:Se nsorineural hearing loss [...] ms GEMUSE QTc 437 ms GEMUSE R [place] -83 degrees GEMUSE T [place] 95 degrees GEMUSE ECG Interpretation Atrial fibrillation with rapid ventricular response Left axis deviation 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 infarct (cited on or before 16-JAN-2019) Anterior infarct (cited on or before 16-JAN-2019) Abnormal ECG When compared with ECG of 05-APR-2024 13:57, No significant change was found Confirmed by Arsenio KAT JAMES ([id number]) on 11/14/2024 12:42:37 PM GEMUSE 11/14/2024 8:30 AM EDT 11/14/2024 12:42 PM EDT us Heather Mederos BUSINESS OBJECTS CONSULTANT ECG ORDERABLES Edited Resul t - Final GEMUSE * Annual BMP Blood Test (02/06/2023) Annual BMP Blood Test abstracted Historical Provider HEALTH MAINTENANCE Final Result from Last 3 Months or Most Recently Relevant to Health Maintenance Insurance MEDICARE [facility]
--- OUTSIDE RECORDS SUMMARY | 2025-01-02 09:22 | XMS_ITS | Encounter Summary ---
Author Organization [facility] Address [address] [place] [address] Phone Care Team Providers Care Director Of Cloud Services Name Role Phone Danilo Ann MD Primary Care Provider + [phone] Danilo Ann MD Unavailable [phone] BuffAmando MD Unavailable [phone] Erickson Huitron MD Unavailable KeaganSukhdev guillen MD Unavailable +[phone] Tavo Flores DO Primary Care Provider Danilo Ann MD Unavailable +[phone] Tavo Flores DO Unavailable [phone] Encounter Details Date Type Department Care Team (Late st Contact Info) Description 06/07/2017 Transcribe Orders [facility] Specimen Processing [address] [place], [place] [id number] Danilo Ann MD [address] [place] [address] [phone] [email or web address] Social History Tobacco Use Types Packs/Day Years Used Date Smoking Tobacco: Former Cigarettes 1.5 15 Smokeless Tobacco: Former Comments:Quit 1973 Alcohol Use Standard Drinks/Week Comments [...] documented as of this encounter Care Teams Director Of Cloud Services Relationship Specialty Start Date End Date Danilo Ann MD [address] [place] [address] [email or web address] PCP - General Internal Medicine 01/18/17 09/15/21 Tavo Flores DO [address] [place] [address], [address] [place] [address] [email or web address] PCP - General Internal Medicine 09/16/21 Danilo Ann MD [address] [place] [address] [email or web address] Insurance Assigned Provider 10/14/17 03/15/22 Amando Kat MD [address] [place] [address] [address] [place] [address] Cardiology 04/17/20 Erickson Huitron MD [address] [place] [address] [address] [place] [address] Urology 04/17/20 [place] [address] Internal Medicine 04/26/21 Danilo Ann MD [address] [address] [email or web address] Insurance Assigned Provider 10/14/17 03/19/22 Tavo Flores DO [address] [place] [address], 2nd [place] [address] [email or web address] Insurance Assigned Provider 06/16/24 documented as of this encounter Additional Source Comments The information contained in this document represents components of the legal health record. It is not the complete legal health record.[facility]
--- OUTSIDE RECORDS SUMMARY | 2025-01-02 09:22 | XMS_ITS | Encounter Summary ---
Author Organization [facility] Address [address] [place] [address] Phone Care Team Providers Care Math Tutor Name Role Phone Danilo Ann MD Primary Care Provider + [phone] Danilo Ann MD Unavailable +[phone] BuffAmando camacho MD Unavailable [phone] Erickson Huitron MD Unavailable Sukhdev Boogie MD Unavailable [phone] Tavo Flores DO Primary Care Provider Danilo Ann MD Unavailable +[phone] Tavo Flores DO Unavailable [phone] Encounter Details Date Type Department Care Team (Late st Contact Info) Description 05/30/2019 Transcribe Orders [facility] Laboratory [address] [place] [address] Erickson Huitron MD [address] [place] [address] [address] [place], [place] [phone] Hypogonadism, male (Primary Dx) Social History Tobacco Use Types Packs/Day Years Used Date Smoking Tobacco: Former Cigarettes 1.5 15 1 963 - 1977 Smokeless Tobacco: Former Alcohol Use Standard Drinks/Week Comments Yes 8 (1 standard drink = 0.6 oz pur e alcohol) Sex and Gender Information Value Date Recorded Sex Assigned at Male 03/21/2019 1:24 PM EST Legal Sex Male 5:19 PM EST Gender Identity Male 03/21/2019 1:24 PM EST Sexual Orientation Straight 03/21/2019 1: 24 PM EST documented as of this encounter Plan of Treatment Not on file documented as of this encounter Results * Testosterone, total (05/30/2019 10:40 AM EDT) TESTOSTERONE 649 249 - 836 ng/dL [facility] Blood 05/30/2019 10:4 0 AM EDT 05/30/2019 10:41 AM EDT us Erickson Huitron MD LAB BLOOD ORDERABLES Final Result [address] [address] * CBC (05/30/2019 10:40 AM EDT) WBC 6.18 4.00 - 11.00 K/uL [facility] Comment:Note Reference Range updates to all CBC and Differential results. RBC 4.96 3.90 - 5.69 M/uL [facility] HGB 15.8 12.4 - 17.3 g/dL [facility] Comment:Note updated Referen ce Ranges for all CBC and Differential results. HCT 47.5 37.0 - 51.0 % [facility] PLT 189 140 - 430 K/uL [facility] MCV 95.8 78.0 - 97.0 fL [facility] MCH 31.9 25.0 - 33.0 pg [facility] MCHC 33.3 32.0 - 36.0 g/dL [facility] RDW 13.0 11.0 - 15.0 % [facility] MPV 12.1 8.4 - 12.8 fl [facility] NRBC 0.00 0 /100 WBCs [facility] ABSOLUTE NRBC 0.00 0 K/uL [facility] Blood 05/30/2019 10:4 0 AM EDT 05/30/2019 10:41 AM EDT us Erickson Huitron MD LAB BLOOD ORDERABLES Final Result [address] [address] * PSA (screening) (05/30/2019 10:40 AM EDT) PSA 2.87 0 - 4.00 ng/mL [facility] Blood 05/30/2019 10:4 0 AM EDT 05/30/2019 10:41 AM EDT us Erickson Huitron MD LAB BLOOD ORDERABLES Final Result Performing Organization Address [facility] Co de Phone Number [address] [address] documented in this encounter Visit Diagnoses Diagnosis Hypogonadism, male- Primary Other testicular hypofunction documented in this encounter Additional Health Concerns Infection Onset Date Last Indicated Resolved Time CoV-Presumed 08/03/2021 08/03/2021 08/24/2021 1:21 AM EDT Assessment Noted Time PHQ-9 Depression Total Score: 3 03/26/19 10:48 AM EST PHQ-2 Depression Total Score: 0 04/15/19 10:47 AM EST documented as of this encounter Care Teams Math Tutor Relationship Specialty Start Date End Date Danilo Ann MD [address] [place] [address] [email or web address] PCP - General Internal Medicine 01/18/17 09/15/21 Tavo Flores DO [address] [place] [address], 2nd [place] [address] [email or web address] PCP - General Internal Medicine 09/16/21 Danilo Ann MD [address] [address] [email or web address] Insurance Assigned Provider 10/14/17 03/15/22 Amando Kat MD [address] [place] [address] Drive [address] [place] [address] Cardiology 04/17/20 Erickson Huitron MD [address] [facility] [address] [place] [address] Urology 04/17/20 [place] [address] Internal Medicine 04/26/21 Danilo Ann MD [address] [place] [address] [address] [place] [address] [email or web address] Insurance Assigned Provider 10/14/17 03/19/22 Tavo Flores DO [address] [place] [address], 2nd [place] [address] [email or web address] Insurance Assigned Provider 06/16/24 documented as of this encounter Additional Source Comments The information contained in this document represents components of the legal health record. It is not the complete legal health record.[facility]
--- OUTSIDE RECORDS SUMMARY | 2025-01-02 09:22 | XMS_ITS | Encounter Summary ---
Author Organization [facility] Address [address] [place] [address] Phone Care Team Providers Care Freight Claim Investigator Name Role Phone Unknown, Unknown Primary Care Provider Danilo Holly MD Primary Care Provider [phone] Danilo Ann MD Unavailable [phone] Amando Kat MD Unavailable [phone] Erickson Huitron MD Unavailable Sukhdev Boogie MD Unavailable [phone] Tavo Flores DO Primary Care Provider Danilo Ann MD Unavailable [phone] Tavo Flores DO Unavailable [phone] Encounter Details Date Type Department Care Team (Latest Contact Info) Description 01/18/2016 Transcribe Orders [facility] [place] [address] [address] Asia Burt MD, PhD [address] [place] [address] [email or web address] SNHL (sensory-neural hearing loss), asymmetrical (Primary Dx) Social History Tobacco Use Types Packs/Day Years Used Date Smoking Tobacco: Never Assessed Sex and Gender Information Value Date Recorded Sex Assigned at Male 03/21/2019 1:24 PM EST Legal Sex Male 5:19 PM EST Gender Identity Male 03/21/2019 1:24 PM EST Sexual Orientation Straight 03/21/2019 1: 24 PM EST documented as of this encounter Plan of Treatment Scheduled Orders Name Type Priority Associated Diagnoses Orde r Schedule Comprehensive hearing test Audiology Routine SNHL (sensory-neural hearing loss), asymmetrical 1 Occurrences starting 01/18/2016 until 01/17/2017 documented as of this encounter Visit Diagnoses Diagnosis SNHL (sensory-neural hearing loss), asymmetrical- Primary Sensorineural hearing loss, asymmetrical documented in this encounter Additional Health Concerns Infection Onset Date Last Indicated Resolved Time CoV-Presumed 08/03/2021 08/03/2021 08/24/2021 1:21 AM EDT documented as of this encounter Care Teams Freight Claim Investigator Relationship Specialty Start Date End Date Unknown, Unknown, MD PCP - General 01/01/16 01/17/17 Danilo Ann MD [address] [place] [address] [email or web address] PCP - General Internal Medicine 01/18/17 09/15/21 Tavo Flores DO [address] [place] [address], 2nd [place] [address] [email or web address] PCP - General Internal Medicine 09/16/21 Danilo Ann MD [address] [place] [address] [email or web address] Insurance Assigned Provider 10/14/17 03/15/22 Amando Kat MD [address] [place] [address] [address] [place] [address] Cardiology 04/17/20 Erickson Huitron MD [address] [place] [address] [address] [place] [address] Urology 04/17/20 [place] [address] Internal Medicine 04/26/21 Danilo Ann MD [address] [address] [email or web address] Insurance Assigned Provider 10/14/17 03/19/22 Tavo Flores DO [address] [place] [address], 2nd [place] [address] [email or web address] Insurance Assigned Provider 06/16/24 documented as of this encounter Additional Source Comments The information contained in this document represents components of the legal health record. It is not the complete legal health record.[facility]
--- OUTSIDE RECORDS SUMMARY | 2025-01-02 09:22 | XMS_ITS | Encounter Summary ---
Author Organization [facility] Address [address] [place] [address] Phone Care Team Providers Care Radio Sales Account Executive Name Role Phone Danilo Ann MD Primary Care Provider + [phone] Danilo Ann MD Unavailable [phone] BuffAmando camacho MD Unavailable [phone] Erickson Huitron MD Unavailable [phone] KeaganSukhdev guillen MD Unavailable [phone] Tavo Flores DO Primary Care Provider Danilo Ann MD Unavailable [phone] Tavo Flores DO Unavailable [phone] Encounter Details Date Type Department Care Team (Late st Contact Info) Description 08/31/2017 Procedure Pass [facility] Cardiovascular And Interventional Radiology [address] [place] [address] Social History Tobacco Use Types Packs/Day Years Used Date Smoking Tobacco: Former Cigarettes 1.5 15 Smokeless Tobacco: Former Comments:4 Alcohol Use Standard Drinks/Week Comments Yes 14 (1 standard drink = 0.6 oz pu [...] documented as of this encounter Care Teams Radio Sales Account Executive Relationship Specialty Start Date End Date Danilo Ann MD [address] [address] [email or web address] PCP - General Internal Medicine 01/18/17 09/15/21 Tavo Flores DO [address] [place] [address], 2[address] [place] [address] [email or web address] PCP - General Internal Medicine 09/16/21 Danilo Ann MD [address] [place] [address] [email or web address] Insurance Assigned Provider 10/14/17 03/15/22 Amando Kat MD [address] [place] [address] [address] [place] [address] Cardiology 04/17/20 Erickson Huitron MD [address] [place] [address] [address] [place] [address] Urology 04/17/20 [place] [address] Internal Medicine 04/26/21 Danilo Ann MD [address] [place] [address] [email or web address] Insurance Assigned Provider 10/14/17 03/19/22 Tavo Flores DO [address] [place] [address], 2[address] [place] [address] [email or web address] Insurance Assigned Provider 06/16/24 documented as of this encounter Additional Source Comments The information contained in this document represents components of the legal health record. It is not the complete legal health record.[facility]
--- OUTSIDE RECORDS SUMMARY | 2025-01-02 09:22 | XMS_ITS | Encounter Summary ---
Author Organization [facility] Address [address] [place] [address] Phone Care Team Providers Care Ink Printer Name Role Phone Unknown, Unknown Primary Care Provider Danilo Holly MD Primary Care Provider + [phone] Danilo Ann MD Unavailable [phone] Amando Kat MD Unavailable [phone] Erickson Huitron MD Unavailable Sukhdev Boogie MD Unavailable [phone] Tavo Flores DO Primary Care Provider Danilo Ann MD Unavailable [phone] Tavo Flores DO Unavailable [phone] Encounter Details Date Type Department Care Team (Late st Contact Info) Description 05/19/[address] [facility] Rad[facility] [address] [place] [address] Social History Tobacco Use Types Packs/Day Years [...] documented as of this encounter Care Teams Ink Printer Relationship Specialty Start Date End Date Unknown, Unknown, MD PCP - General 01/01/16 01/17/17 Danilo Ann MD [address] [address] [email or web address] PCP - General Internal Medicine 01/18/17 09/15/21 Tavo Flores DO [address] [place] [address], 2nd [place] [address] [email or web address] PCP - General Internal Medicine 09/16/21 Danilo Ann MD [address] [address] [email or web address] Insurance Assigned Provider 10/14/17 03/15/22 Amando Kat MD [address] [place] [address] [address] [place] [address] Cardiology 04/17/20 Erickson Huitron MD [address] [place] [address] [address] [place] [address] Urology 04/17/20 [place] [address] Internal Medicine 04/26/21 Danilo Ann MD 90 [facility] [address] [place] [address] [email or web address] Insurance Assigned Provider 10/14/17 03/19/22 Tavo Flores DO [address] [place] [address], 2[address] [place] [address] [email or web address] Insurance Assigned Provider 06/16/24 documented as of this encounter Additional Source Comments The information contained in this document represents components of the legal health record. It is not the complete legal health record.[facility]
--- OUTSIDE RECORDS SUMMARY | 2025-01-02 09:22 | XMS_ITS | Encounter Summary ---
Author Organization [facility] Address [address] [place] [address] Phone Care Team Providers Care Downstream Biomanufacturing Technician Name Role Phone Unknown, Unknown Primary Care Provider Danilo Holly MD Primary Care Provider + [phone] Danilo Ann MD Unavailable +[phone] Amando Kat MD Unavailable [phone] Erickson Huitron MD Unavailable Sukhdev Boogie MD Unavailable [phone] Tavo Flores DO Primary Care Provider Danilo Ann MD Unavailable +[phone] Tavo Flores DO Unavailable [phone] Encounter Details Date Type Department Care Team (Late st Contact Info) Description 01/19/2016 Procedure Pass [facility] - CT, [address] [address] Social History Tobacco Use Types Packs/Day Years [...] documented as of this encounter Care Teams Downstream Biomanufacturing Technician Relationship Specialty Start Date End Date Unknown, Unknown, PCP - General 01/01/16 01/17/17 Danilo Ann MD [address] [address] [email or web address] PCP - General Internal Medicine 01/18/17 09/15/21 Taov Flores DO [address] [place] [address], 2[address] [place] [address] [email or web address] PCP - General Internal Medicine 09/16/21 Danilo Ann MD [address] [place] [address] [email or web address] Insurance Assigned Provider 10/14/17 03/15/22 Amando Kat MD [address] [place] [address] [address] [place] [address] Cardiology 04/17/20 Erickson Huitron MD [address] [place] [address] [address] [place] [address] Urology 04/17/20 [place] [address] Internal Medicine 04/26/21 Danilo Ann MD [address] [place] [address] [email or web address] Insurance Assigned Provider 10/14/17 03/19/22 Tavo Flores DO [address] [place] [address], 2[address] [place] [address] [email or web address] Insurance Assigned Provider 06/16/24 documented as of this encounter Additional Source Comments The information contained in this document represents components of the legal health record. It is not the complete legal health record.[facility]
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
--- OUTSIDE RECORDS SUMMARY | 2025-01-02 09:22 | XMS_ITS | Encounter Summary ---
Author Organization [facility] Address [address] [place] [address] Phone Care Team Providers Care Product Planner Name Role Phone Unknown, Unknown Primary Care Provider Danilo Holly MD Primary Care Provider [phone] Danilo Ann MD Unavailable + Amando Kat MD Unavailable [phone] Erickson Huitron MD Unavailable Sukhdev Boogie MD Unavailable +[phone] Tavo Flores DO Primary Care Provider Danilo Ann MD Unavailable +[phone] Tavo Flores DO Unavailable +[phone] Encounter Details Date Type Department Care Team (Late st Contact Info) Description 05/25/2016 Transcribe Orders [facility] [address] [place] [address] Juliet Nelson [address] [place] [address] [email or web address] .[email or web address] Social History Tobacco Use Types Packs/Day Years [...] documented as of this encounter Results * US Vascular Outside (No Interpretation) (05/25/2016 12:30 AM EDT) Narrative SYSTEMGENERATED, DOCUMENTATION - 05/25/2016 2:52 PM EDT This study is for PACS storage only and not for interpretation. Elia Garcia MD CV US VASCULAR Final Resul t * US Vascular Outside (No Interpretation) (05/25/2016 12:15 AM EDT) Narrative SYSTEMGENERATED, DOCUMENTATION - 05/25/2016 2:52 PM EDT This study is for PACS storage only and not for interpretation. Elia Garcia MD CV US VASCULAR Final Resul t * US Vascular Outside (No Interpretation) (05/25/2016 12:00 AM EDT) Narrative SYSTEMGENERATED, DOCUMENTATION - 05/25/2016 2:52 PM EDT This study is for PACS storage only and not for interpretation. us Elia Garcia MD CV US VASCULAR Final Resul t documented in this encounter Visit Diagnoses Not on filedocumented in this encounter Additional Health Concerns Infection Onset Date Last Indicated Resolved Time CoV-Presumed 08/03/2021 08/03/2021 08/24/2021 1:21 AM EDT documented as of this encounter Care Teams Product Planner Relationship Specialty Start Date End Date Unknown, Unknown, MD PCP - General 01/01/16 01/17/17 Danilo Ann MD [address] [place] [address] [email or web address] ([email or web address] .[email or web address] PCP - General Internal Medicine 01/18/17 09/15/21 Tavo Flores DO [address] [place] [address] [email or web address] PCP - General Internal Medicine 09/16/21 Danilo Ann MD [address] [address] [email or web address] .[email or web address] Insurance Assigned Provider 10/14/17 03/15/22 Amando Kat MD [address] [place] [address] [address] [place] [address] Cardiology 04/17/20 Erickson Huitron MD [address] [place] [address] [address] [place] [address] Urology 04/17/20 [place] [address] Internal Medicine 04/26/21 Danilo Ann MD [address] [address] [email or web address] Insurance Assigned Provider 10/14/17 03/19/22 Tavo Flores DO [address] [place] [address], [address] [place] [address] [email or web address] Insurance Assigned Provider 06/16/24 documented as of this encounter Additional Source Comments The information contained in this document represents components of the legal health record. It is not the complete legal health record.[facility]
--- OUTSIDE RECORDS SUMMARY | 2025-01-02 09:22 | XMS_ITS | Encounter Summary ---
Author Organization [facility] Address [address] [place] [address] Phone Care Team Providers Care Medical Technologist Prn Name Role Phone Danilo Ann MD Primary Care Provider + [phone] Danilo Ann MD Unavailable [phone] BuffAmando camacho MD Unavailable [phone] Erickson Huitron MD Unavailable Sukhdev Boogie MD Unavailable [phone] Tavo Flores DO Primary Care Provider Danilo Ann MD Unavailable [phone] Tavo Flores DO Unavailable [phone] Encounter Details Date Type Department Care Team (Latest Contact Info) Description 11/21/2017 Transcribe Orders [facility] [address] [place] [address] [phone] Erickson Huitron MD [address] [place] [address] [address] [place], [place] [phone] Uric acid nephrolithiasis (Primary Dx) Social History Tobacco Use Types [...] of this encounter Results * Testosterone, total (11/21/2017 9:41 AM EDT) TESTOSTERONE 123 72 - 623 ng/dL [facility] Blood 11/21/2017 9:41 AM EDT 11/21/2017 9:47 AM EDT us Erickson Huitron MD LAB BLOOD ORDERABLES Final Result [address] [address] * CBC (11/21/2017 9:41 AM EDT) WBC 6.49 3.40 - 11.20 K/uL [facility] RBC 4.90 4.50 - 5.50 M/uL [facility] HGB 15.2 13.0 - 17.0 g/dL [facility] HCT 46.1 40.0 - 51.0 % [facility] PLT 179 130 - 400 K/uL [facility] MCV 94.1 79.0 - 98.0 [facility] MCH 31.0 27.0 - 34.8 pg [facility] MCHC 33.0 31.5 - 36.0 g/dL [facility] RDW 13.1 10.8 - 14.6 % [facility] MPV 11.7 9.4 - 12.4 [facility] NRBC 0.00 /100 WBCs [facility] ABSOLUTE NRBC 0.00 K/uL [facility] Blood 11/21/2017 9:41 AM EDT 11/21/2017 9:47 AM EDT us Erickson Huitron MD LAB BLOOD ORDERABLES Final Result Performing Organization Address City/[facility]/ZIP Co de Phone Number [address] [address] * PSA (screening) (11/21/2017 9:41 AM EDT) PSA 1.95 0 - 4.00 ng/mL [facility] Blood 11/21/2017 9:41 AM EDT 11/21/2017 9:46 AM EDT us Erickson Huitron MD LAB BLOOD ORDERABLES Final Result [facility] [address] [place] [address] documented in this encounter Visit Diagnoses Diagnosis Uric acid nephrolithiasis- Primary documented in this encounter Additional Health Concerns Infection Onset Date Last Indicated Resolved Time CoV-Presumed 08/03/2021 08/03/2021 08/24/2021 1:21 AM EDT Assessment Noted Time PHQ-2 Depression Total Score: 2 06/02/19 17 4:40 PM EDT documented as of this encounter Care Teams Medical Technologist Prn Relationship Specialty Start Date End Date Danilo Ann MD [address] [address] [email or web address] PCP - General Internal Medicine 01/18/17 09/15/21 Tavo Flores DO [address] [place] [address], [address] [place] [address] [email or web address] PCP - General Internal Medicine 09/16/21 Danilo Ann MD [address] [address] [email or web address] Insurance Assigned Provider 10/14/17 03/15/22 Amando Kat MD [address] [place] [address] [place] [address] Cardiology 04/17/20 Erickson Huitron MD [address] [address] Urology 04/17/20 [place] [address] Internal Medicine 04/26/21 Danilo Ann MD [address] [place] [address] [email or web address] Insurance Assigned Provider 10/14/17 03/19/22 Tavo Flores DO [address] [place] [address], 2[address] [place] [address] [email or web address] Insurance Assigned Provider 06/16/24 documented as of this encounter Additional Source Comments The information contained in this document represents components of the legal health record. It is not the complete legal health record.[facility]
--- OUTSIDE RECORDS SUMMARY | 2025-01-02 09:23 | XMS_ITS | Encounter Summary ---
Author Organization [facility] Address [address] [place] [address] [place] [address] Phone Care Team Providers Care Wash House Supervisor Name Role Phone Danilo Ann MD Primary Care Provider + [phone] Danilo Ann MD Unavailable [phone] BuffAmando camacho MD Unavailable [phone] Erickson Huitron MD Unavailable Sukhdev Boogie MD Unavailable [phone] Tavo Flores DO Primary Care Provider Danilo Ann MD Unavailable [phone] Tavo Flores DO Unavailable [phone] Encounter Details Date Type Department Care Team (Late st Contact Info) Description 05/31/2018 Transcribe Orders [facility] [address] [place] [address] Erickson Huitron MD [address] [place] [address] 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) Social History Tobacco Use Types [...] of this encounter Results * Testosterone, total (05/31/2018 11:33 AM EDT) TESTOSTERONE 353 72 - 623 ng/dL [facility] Blood 05/31/2018 11:3 3 AM EDT 05/31/2018 11:40 AM EDT us Erickson Huitron MD LAB BLOOD ORDERABLES Final Result [address] [address] * CBC (05/31/2018 11:33 AM EDT) WBC 5.50 3.40 - 11.20 K/uL [facility] RBC 5.00 4.50 - 5.50 M/uL [facility] HGB 15.6 13.0 - 17.0 g/dL [facility] HCT 45.8 40.0 - 51.0 % [facility] PLT 202 130 - 400 K/uL [facility] MCV 91.6 79.0 - 98.0 [facility] MCH 31.2 27.0 - 34.8 pg [facility] MCHC 34.1 31.5 - 36.0 g/dL [facility] RDW 12.4 10.8 - 14.6 % [facility] MPV 11.9 9.4 - 12.4 [facility] NRBC 0.00 0.00 /100 WBCs [facility] ABSOLUTE NRBC 0.00 0.00 K/uL [facility] Blood 05/31/2018 11:3 3 AM EDT 05/31/2018 11:40 AM EDT us Erickson Huitron MD LAB BLOOD ORDERABLES Final Result [address] [place] [address] * PSA (screening) (05/31/2018 11:33 AM EDT) PSA 3.24 0 - 4.00 ng/mL [facility] Blood 05/31/2018 11:3 3 AM EDT 05/31/2018 11:41 AM EDT us Erickson Huitron MD LAB BLOOD ORDERABLES Final Result [address] [address] documented in this encounter Visit Diagnoses Diagnosis 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 documented in this encounter Additional Health Concerns Infection Onset Date Last Indicated Resolved Time CoV-Presumed 08/03/2021 08/03/2021 08/24/2021 1:21 AM EDT Assessment Noted Time PHQ-9 Depression Total Score: 3 03/26/19 19 10:48 AM EST PHQ-2 Depression Total Score: 3 03/26/19 10:48 AM EST documented as of this encounter Care Teams Wash House Supervisor Relationship Specialty Start Date End Date Danilo Ann MD [address] [place] [address] [email or web address] PCP - General Internal Medicine 01/18/17 09/15/21 Tavo Flores DO [address] [place] [address], 2[address] [place] [address] [email or web address] PCP - General Internal Medicine 09/16/21 Danilo Ann MD [address] [place] [address] [email or web address] Insurance Assigned Provider 10/14/17 03/15/22 Amando Kat MD [address] [place] [address] Drive [address] [place] [address] Cardiology 04/17/20 Erickson Huitron MD 100 [facility] [address] [place] [address] Urology 04/17/20 [place] [address] Internal Medicine 04/26/21 Danilo Ann MD [address] [place] [address] 101 [place] [address] [email or web address] Insurance Assigned Provider 10/14/17 03/19/22 Tavo Flores DO [address] [place] [address], 2[address] [place] [address] [email or web address] Insurance Assigned Provider 06/16/24 documented as of this encounter Additional Source Comments The information contained in this document represents components of the legal health record. It is not the complete legal health record.[facility]
--- OUTSIDE RECORDS SUMMARY | 2025-01-02 09:23 | XMS_ITS | Encounter Summary ---
Author Organization [facility] Address [address] [place] [address] [place] [address] Phone Care Team Providers Care Branding Specialist Name Role Phone Danilo Ann MD Primary Care Provider + [phone] Danilo Ann MD Unavailable [phone] Amando Kat MD Unavailable [phone] Erickson Huitron MD Unavailable KeaganSukhdev guillen MD Unavailable +[phone] Tavo Flores DO Primary Care Provider Danilo Ann MD Unavailable [phone] Tavo Flores DO Unavailable [phone] Encounter Details Date Type Department Care Team (Latest Contact Info) Description 04/04/2017 Ancillary [facility] [address] [facility] 3rd Floor, [address] [place] [address] Amando Knight DO [address] [facility] [address] [place] [address] [email or web address] Carotid artery disease, unspecified laterality Social History Tobacco Use Types Packs/Day Years [...] as of this encounter Visit Diagnoses Diagnosis Carotid artery disease, unspecified laterality documented in this encounter Additional Health Concerns Infection Onset Date Last Indicated Resolved Time CoV-Presumed 08/03/2021 08/03/2021 08/24/2021 1:21 AM EDT Assessment Noted Time PHQ-2 Depression Total Score: 2 06/02/19 17 4:40 PM EDT documented as of this encounter Care Teams Branding Specialist Relationship Specialty Start Date End Date Danilo Ann MD [address] [place] [address] [email or web address] PCP - General Internal Medicine 01/18/17 09/15/21 Tavo Flores DO [address] [place] [address], 2nd [place] [address] [email or web address] PCP - General Internal Medicine 09/16/21 Danilo Ann MD [address] [place] [address] [email or web address] Insurance Assigned Provider 10/14/17 03/15/22 Amando Kat MD [address] [place] [address] [address] [place] [address] Cardiology 04/17/20 Erickson Huitron MD [address] [place] [address] [address] [place] [address] Urology 04/17/20 [place] [address] Internal Medicine 04/26/21 Danilo Ann MD [address] [place] [address] [email or web address] Insurance Assigned Provider 10/14/17 03/19/22 Tavo Flores DO [address] [place] [address], 2[address] [place] [address] [email or web address] Insurance Assigned Provider 06/16/24 documented as of this encounter Additional Source Comments The information contained in this document represents components of the legal health record. It is not the complete legal health record.[facility]
--- OUTSIDE RECORDS SUMMARY | 2025-01-02 09:23 | XMS_ITS | Encounter Summary ---
Author Organization [facility] Address [address] [place] [address] Phone Care Team Providers Care Microbiological Lab Technician Name Role Phone Danilo Ann MD Primary Care Provider + [phone] Danilo Ann MD Unavailable [phone] BuffAmando camacho MD Unavailable [phone] Erickson Huitron MD Unavailable KeaganSukhdev guillen MD Unavailable +[phone] Tavo Flores DO Primary Care Provider Danilo Ann MD Unavailable [phone] Tavo Flores DO Unavailable [phone] Encounter Details Date Type Department Care Team (Late st Contact Info) Description 04/04/2017 Ancillary [facility] [address] [place] [address] Amando Knight DO [address] [facility] [address] [place] [address] [email or web address] Social History Tobacco Use Types Packs/Day Years [...] documented as of this encounter Care Teams Microbiological Lab Technician Relationship Specialty Start Date End Date Danilo Ann MD [address] [address] [email or web address] PCP - General Internal Medicine 01/18/17 09/15/21 Tavo Flores DO [address] [place] [address], 2[address] [place] [address] [email or web address] PCP - General Internal Medicine 09/16/21 Danilo Ann MD [address] [place] [address] [email or web address] Insurance Assigned Provider 10/14/17 03/15/22 Amando Kat MD [address] [place] [address] [address] [place] [address] Cardiology 04/17/20 Erickson Huitron MD [address] [place] [address] [address] [place] [address] Urology 04/17/20 [place] [address] Internal Medicine 04/26/21 Danilo Ann MD [address] [address] [email or web address] Insurance Assigned Provider 10/14/17 03/19/22 Tavo Flores DO [address] [place] [address], 2[address] [place] [address] [email or web address] Insurance Assigned Provider 06/16/24 documented as of this encounter Additional Source Comments The information contained in this document represents components of the legal health record. It is not the complete legal health record.[facility]
--- OUTSIDE RECORDS SUMMARY | 2025-01-02 09:23 | XMS_ITS | Encounter Summary ---
Author Organization [facility] Address [address] [place] [address] Phone Care Team Providers Care Process Development Chemist Name Role Phone Danilo Ann MD Primary Care Provider + [phone] Danilo Ann MD Unavailable [phone] BuffAmando camacho MD Unavailable [phone] Erickson Huitron MD Unavailable Sukhdev Boogie MD Unavailable [phone] Tavo Flores DO Primary Care Provider Danilo Ann MD Unavailable [phone] Tavo Flores DO Unavailable [phone] Encounter Details Date Type Department Care Team (Late st Contact Info) Description 12/06/2018 Transcribe Orders [facility] [address] [place] [address] Erickson Huitron MD [address] [place] [address] 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); Hypogonadism in male Social History Tobacco Use Types Packs/Day Years [...] as of this encounter Results * (ABNORMAL) Testosterone, total (12/06/2018 10:37 AM EDT) TESTOSTERONE 895(H) 249 - 836 ng/dL [facility] Blood 12/06/2018 10:3 7 AM EDT 12/06/2018 11:05 AM EDT us Erickson Huitron MD LAB BLOOD ORDERABLES Final Result Performing Organization Address City/[facility]/ZIP Co de Phone Number [address] [address] * CBC (12/06/2018 10:37 AM EDT) WBC 6.25 3.40 - 11.20 K/uL [facility] RBC 5.05 4.50 - 5.50 M/uL [facility] HGB 16.6 13.0 - 17.0 g/dL [facility] HCT 48.5 40.0 - 51.0 % [facility] PLT 214 130 - 400 K/uL [facility] MCV 96.0 79.0 - 98.0 fL [facility] MCH 32.9 27.0 - 34.8 pg [facility] MCHC 34.2 31.5 - 36.0 g/dL [facility] RDW 14.0 10.8 - 14.6 % [facility] MPV 11.1 9.4 - 12.4 fl [facility] NRBC 0.00 0.00 /100 WBCs [facility] ABSOLUTE NRBC 0.00 0.00 K/uL [facility] Blood 12/06/2018 10:3 7 AM EDT 12/06/2018 11:05 AM EDT us Erickson Huitron MD LAB BLOOD ORDERABLES Final Result [address] [address] * PSA (screening) (12/06/2018 10:37 AM EDT) PSA 2.70 0 - 4.00 ng/mL [facility] Blood 12/06/2018 10:3 7 AM EDT 12/06/2018 11:06 AM EDT us Erickson Huitron MD LAB BLOOD ORDERABLES Final Result Performing Organization Address City/[facility] Co de Phone Number [address] [address] documented in this encounter Visit Diagnoses Diagnosis 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 Hypogonadism in male documented in this encounter Additional Health Concerns Infection Onset Date Last Indicated Resolved Time CoV-Presumed 08/03/2021 08/03/2021 08/24/2021 1:21 AM EDT Assessment Noted Time PHQ-9 Depression Total Score: 3 03/26/19 10:48 AM EST PHQ-2 Depression Total Score: 3 03/26/19 10:48 AM EST documented as of this encounter Care Teams Process Development Chemist Relationship Specialty Start Date End Date Danilo Ann MD [address] [place] [address] [email or web address] PCP - General Internal Medicine 01/18/17 09/15/21 Tavo Flores DO [address] [place] [address], [address] [place] [address] [email or web address] PCP - General Internal Medicine 09/16/21 Danilo Ann MD [address] [address] [email or web address] Insurance Assigned Provider 10/14/17 03/15/22 Amando Kat MD [address] [place] [address] [address] [place] [address] Cardiology 04/17/20 Erickson Huitron MD [address] [facility] [address] [place] [address] Urology 04/17/20 [place] [address] Internal Medicine 04/26/21 Danilo Ann MD 90 [facility] [address] [place] [address] [email or web address] Insurance Assigned Provider 10/14/17 03/19/22 Tavo Flores DO [address] [place] [address], 2nd [place] [address] [email or web address] Insurance Assigned Provider 06/16/24 documented as of this encounter Additional Source Comments The information contained in this document represents components of the legal health record. It is not the complete legal health record.[facility]
[2025-01-02 09:57] LABS: Hematocrit 46.7 % (42.0-52.0); Hemoglobin 15.5 g/dl (14.0-18.0); Mean Corpuscular HGB Conc 33.2 g/dl (31.0-36.0); Mean Corpuscular Hemoglobin 31.8 pg (27.0-33.0); Mean Corpuscular Volume 95.9 fL (80.0-98.0); NRBC Abs Auto 0.000 X10*3/uL (0.0-0.012); NRBC Pct Auto 0.0 /100WBC (0.0-0.2); Platelet Count 183 X10*3/uL (160-400); Red Blood Count 4.87 X10*6/uL (4.60-5.80); White Blood Count 5.4 X10*3/uL (4.8-10.8)
[2025-01-02 10:02] LABS: Appearance Urine Clear; Glucose Urine UA Negative (Negative); PH 7.0 (5.0-9.0); Specific Gravity - Urine <= 1.005 (1.005-1.025); UMIC TRIGGER UA YES
[2025-01-02 10:33] LABS: Prostate Specific Antigen 1.39 ng/mL (<0.05-4.0)
== END 2025-01-02 08:44 | disposition home or self-care (01) ==
LOC: HO.10HDL 08:43
PROVIDERS: Visit Provider Urology
DX: N40.0 Benign prostatic hyperplasia without lower urinary tract symptoms (principal); E29.1 Testicular hypofunction; Z12.5 Encounter for screening for malignant neoplasm of prostate
CPT/HCPCS: 36415; 81001; 84153; 84403; 85027; 87086

== ENCOUNTER 2025-01-10 13:37 | Outpatient (AMB) | payer MEDICARE, OTHER, SELFPAY ==
--- NOTE | 2025-01-10 13:37 | A.OFFVIS_ITS ---
Intake Visit Reasons: Greenlight follow up Intake Note: Patient is present for Green light follow up Urology Medication:TADALAFIL,TESTOSTERONE,TERAZOSIN,FINASTERIDE Antibiotic Allergy:NONE Blood Thinner:APIXABAN Imaging done 10/07/24 ( ultrasound ) PVR: 53 mls Labs done 01/02/25 PSA 1.39, Total testosterone 274 Database Security Expert Required: No Accompanied by: Self / Same As Patient Allergies tamsulosin Allergy (Unknown, Verified 01/10/25 13:42) Unknown HPI Comments Details: Brett is a pleasant male. He is a patient of Dr. Flores. He is seen for the following urologic condition. 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 Initial symptoms include decreased libido Yes in muscle size/strength Yes increased fatigue/malaise Yes The onset of symptoms has been gradual Laboratory results followup 09/24 , testosterone 426, , PSA 1.5, , Hct 43 09/25 , testosterone 181, 04/29 - T 544, 10/27 - T 360, PSA 2.2, 10/28 - T 124, PSA 2.0 11/29 845 Hct 48 PSA 2.7, 12/30 T 460 PSA 3.4, 07/01 T 577, PSA 4.0, 07/02 T 1111 PSA 4.3 45.2. 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 Atrial fibrillation Shingles Erectile dysfunction Colonic polyp Hypogonadism in male OA (osteoarthritis) BPH (benign prostatic hyperplasia) Bilateral nephrolithiasis Surgical History History of surgery Social History Patient Tobacco Use Status: Never used Tobacco Review of Systems Const Denies chills and Denies fever(s) Card Reports no additional complaints and Denies syncope Resp Denies cough GI Denies abdominal pain and Denies heartburn Reports as per HPI and Denies change in libido Neuro Denies syncope Psych Denies change in libido Endo Denies change in libido Physical Exam Const General: cooperative, healthy appearing, comfortable and no acute distress Orientation/consciousness: patient oriented x3 HEENT Face and sinus: Yes normal facial exam Mouth: moist mucous membranes Neck Neck: Yes normal visual inspection, Yes full ROM and Yes trachea midline Chest Chest palpation & inspection: normal inspection of the chest Resp Effort & Inspection: normal respiratory effort, able to speak in complete sentences and no respiratory distress GI Inspection: Yes normal to inspection Back/Spine/Pelvis Cervical Spine: normal cervical lordosis Thoracic/Lumbar Spine: thoracic and lumbar spine normal to inspection Skin General skin exam: no rashes or lesions noted Neuro General: patient oriented x3, gait normal, tone normal and moves all extremities Extrem General: Yes normal to inspection and Yes capillary refill normal Office Procedures Post Void Residual Post Residual Void Post Void Residual (PVR): 23 [id number] Void Residual by ultrasound Assessment & Plan Assessment & Plan (1) Urinary urgency: Code(s): R39.15 - Urgency of urination Category: Medical Plan Three-month follow-up Orders: Orders Testosterone, Total 3 Months E29.1 - Testicular hypofunction Medications: New vibegron 75 mg PO DAILY 30 tabs 1RF 30 days R39.15 - Urgency of urination Discontinued terazosin Discontinued Reason: Order 5 mg PO BEDTIME 90 days 90 caps 1RF N40.0 - Benign prostatic hyperplasia without lower urinary tract symptoms, N40.1 - Benign prostatic hyperplasia with lower urinary tract symptoms, R35.0 - Frequency of micturition finasteride Discontinued Reason: Patient Completed Course 5 mg PO DAILY 90 days 90 tabs 1RF N40.0 - Benign prostatic hyperplasia without lower urinary tract symptoms Patient Instructions: This note is constructed using voice recognition software. While every effort has been made to ensure accuracy digital performance analyst errors may have been included. Imaging studies, laboratory and physical exam results were discussed and reviewed in detail. No major barriers to patient understanding were identified. An opportunity to ask questions regarding the treatment plan was provided. All questions were answered. The patient expressed understanding and agreement with the above treatment plan. The patient is aware they should contact our office by phone for worsening of their current condition or the appearance of new urologic symptoms. Compliance is encouraged with any medications and followup testing that is ordered. It is a privilege to participate in the urologic care of your patient. If you have any questions or concerns regarding treatment for the above conditions, or other urologic issues, please do not hesitate to contact me. The office telephone contact is [phone]. Sincerely, Dr Erickson Huitron MD, AARON [facility] - Urology Compassionate Specialist Care for the Genitourinary System Coding Level of Care Code Est Pt Level 3 (87344) Complex EM visit Add On G2211 Diagnoses Urinary urgency R39.15 CPT Codes Post Residual Void - PVR CPT Code: 55399-Pfnh Void Residual by ultrasound ([id number])
--- OUTSIDE RECORDS SUMMARY | 2025-01-10 14:34 | XMS_ITS | Encounter Summary ---
Author Organization [facility] Address [address] [place] [address] Phone Care Team Providers Care Service Transformer Repair Supervisor Name Role Phone Danilo Ann MD Primary Care Provider + [phone] Danilo Ann MD Unavailable [phone] Amando Kat MD Unavailable [phone] Erickson Huitron MD Unavailable [phone] Sukhdev Boogie MD Unavailable [phone] Tavo Flores DO Primary Care Provider Danilo Ann MD Unavailable [phone] Tavo Flores DO Unavailable [phone] Encounter Details Date Type Department Care Team (Latest Contact Info) Description 06/08/[address] [facility] [address] [place], [place] [id number] Edmond Mesa MD [address] [place] [address], [address] [place] [address] [email or web address] Chronic kidney disease (CKD) stage G3a/A1, moderately [...] EDT) SODIUM 140 133 - 146 mmol/L [facility] CHLORIDE 103 96 - 108 mmol/L [facility] POTASSIUM 4.8 3.3 - 5.1 mmol/L [facility] CO2 28 21 - 35 mmol/L [facility] BUN 28(H) 6 - 19 mg/dL [facility] CREATININE 1.30 0.5 - 1.5 mg/dL [facility] GLUCOSE 87 70 - 99 mg/dL [facility] CALCIUM 9.2 8.4 - 10.3 mg/dL [facility] EGFR 55(L) >59 mL/min/1.7 3m2 [facility] Comment:Estimated glomerular filtration rate calculated using the CKD-EPI equation. ANION GAP 14 10 - 20 mmol/L [facility] Blood 06/08/2020 3:13 PM EDT 06/08/2020 3:14 PM EDT us Edmond Mesa MD LAB BLOOD ORDERABLES Final Re sult [address] [address] documented in this encounter Visit Diagnoses Diagnosis [...] documented as of this encounter Care Teams Service Transformer Repair Supervisor Relationship Specialty Start Date End Date Danilo Ann MD [address] [address] [email or web address] PCP - General Internal Medicine 01/18/17 09/15/21 Tavo Flores DO [address] [place] [address], 2nd [place] [address] [email or web address] PCP - General Internal Medicine 09/16/21 Danilo Ann MD [address] [place] [address] [email or web address] Insurance Assigned Provider 10/14/17 03/15/22 Amando Kat MD [address] [place] [address] [address] [place] [address] Cardiology 04/17/20 Erickson Huitron MD [address] [place] [address] [address] [place] [address] Urology 04/17/20 [place] [address] Internal Medicine 04/26/21 Danilo Ann MD [address] [place] [address] [email or web address] Insurance Assigned Provider 10/14/17 03/19/22 Tavo Flores DO [address] [place] [address], 2[address] [place] [address] [email or web address] Insurance Assigned Provider 06/16/24 documented as of this encounter Additional Source Comments The information contained in this document represents components of the legal health record. It is not the complete legal health record.[facility]
--- OUTSIDE RECORDS SUMMARY | 2025-01-10 14:34 | XMS_ITS | Encounter Summary ---
Author Organization [facility] Address [address] [place] [address] Phone Care Team Providers Care Starch Factory Laborer Name Role Phone Amando Kat MD Unavailable [phone] Erickson Huitron MD Unavailable Sukhdev Boogie MD Unavailable [phone] Tavo Flores DO Primary Care Provider Tavo Flores DO Unavailable [phone] Encounter Details Date Type Department Care Team (Late st Contact Info) Description 06/20/2024 Procedure Pass OR Admitting Dept - Virtual Department [address] [place] [address] Social History Tobacco Use Types Packs/Day Years [...] documented as of this encounter Care Teams Starch Factory Laborer Relationship Specialty Start Date End Date Tavo Flores DO [address] [place] [address] [email or web address] PCP - General Internal Medicine 09/16/21 Amando Kat MD [address] [place] [address] [address] [address] Cardiology 04/17/20 Erickson Huitron MD [address] [place] [address] [address] [place] [address] Urology 04/17/20 [place] [address] Internal Medicine 04/26/21 Tavo Flores DO [address] [place] [address], [address] [place] [address] [email or web address] Insurance Assigned Provider 06/16/24 documented as of this encounter Additional Source Comments The information contained in this document represents components of the legal health record. It is not the complete legal health record.[facility]
--- OUTSIDE RECORDS SUMMARY | 2025-01-10 14:34 | XMS_ITS | Clinical Summary ---
Author Organization [facility] Address [address] [place] [address] Phone Care Team Providers Care Credit Controller Name Role Phone Amando Kat MD Unavailable [phone] Erickson Huitron MD Unavailable Sukhdev Boogie MD Unavailable [phone] Tavo Flores DO Primary Care Provider Tavo Flores DO Unavailable [phone] Allergies Active Allergy Reactions Criticality Noted Date [...] was seen by Dr. Damion Hannah, our delivery person and Dr. 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 [...] symptoms of CHAPARRO. He was referred to [facility] hypertrophy clinic Dr. Fredis Naqvi. [...] for consult with hypertrophic cardiomyopathy clinic at [facility]. Elevated BP without diagnosis of hypertension Assessment [...] him evaluated by Dr. Shantanu Hyde at [facility] for the same. Increase metoprolol to [...] follows with Dr. Mcclain for the same. 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 He will need to wait [...] Encounters Date Type Department Care Team Description 01/09/2025 Telephone [facility] [address] [place] [address] [place] [address] Tavo Flores, Triage (Yellow+abscess/cyst) 01/09/2025 Telephone [facility] [address] [place] [address] Lila Sanders MD Appointment from Last 3 Months Immunizations Immunization Administration [...] 03/17/2023, 12/29/2021, Additional history exists COVID-19 VACCINE (2024- season) 2024 01/03/2024, 01/12/2022, 01/06/2021, Additional history [...] this topic Medical Devices Implanted Type Area Network Intern Device Identifier Shelf Expiration Date Model / Serial / Lot Left Ear Hips Shoulder Procedures Procedure Name Priority Date/Time Associated Diagnosis Comments BASIC METABOLIC PANEL Routine 02/06/2023 8:24 AM EST Medicare annual wellness visit, subsequent HEPATITIS C ANTIBODY, QUALITATIVE Routine 04/17/2019 8:57 AM EST Routine general medical examination at a [facility] facility from Last 3 Months or Most Recently Relevant to Health Maintenance Results * (ABNORMAL) Basic metabolic panel (02/06/2023 8:24 AM EST) SODIUM 139 133 - 146 mmol/L [facility] CHLORIDE 101 96 - 108 mmol/L [facility] POTASSIUM 4.9 3.3 - 5.1 mmol/L [facility] CO2 29 21 - 35 mmol/L [facility] BUN 31(H) 6 - 19 mg/dL [facility] CREATININE 1.60(H) 0.5 - 1.5 mg/dL [facility] GLUCOSE 102(H) 70 - 99 mg/dL [facility] CALCIUM 9.4 8.4 - 10.3 mg/dL [facility] EGFR 45(L) >59 mL/min/1.7 3m2 [facility] Comment:Estimated glomerular filtration rate calculated using the CKD-EPI refit equation. ANION GAP 14 10 - 20 mmol/L [facility] Blood 02/06/2023 8:24 AM EST 02/06/2023 8:27 AM EST us Tavo Flores DO LAB BLOOD ORDERABLES Fi nal Result [facility] [address] [place] [address] * Hepatitis C antibody, qualitative (04/17/2019 8:57 AM EST) HCV NON-REACTIV E NON-REACTI VE [facility] Blood 04/17/2019 8:57 AM EST 04/17/2019 9:00 AM EST Danilo Ann MD LAB BLOOD ORDERABLES Final Result [facility] [address] [place] [address] from Last 3 Months or Most Recently Relevant to Health Maintenance Insurance MEDICARE PART A & B [facility] MEDICARE SUPPLEMENT MEDICARE PART A & B [facility] MEDICARE SUPPLEMENT MEDICARE PART A & [facility]ENSION MEDICARE SUPPLEMENT MEDICARE PART A & B [facility] MEDICARE SUPPLEMENT MEDICARE PART A & B [facility] MEDICARE SUPPLEMENT MEDICARE PART A & B [facility] MEDICARE SUPPLEMENT MEDICARE PART A & B [employer] MEDICARE SUPPLEMENT MEDICARE PART A & B [employer] MEDICARE SUPPLEMENT MEDICARE PART A & B [facility] MEDICARE SUPPLEMENT Advance Directives For more information, please contact: [phone] (9AM - 5PM [facility], Monday-Monday) * Full Code (Presumed) (Latest Code Status on File) Date Activated Date Inactivated Comments 08/31/2017 7:22 AM 09/01/2017 4:20 AM Care Teams Credit Controller Relationship Specialty Start Date End Date Tavo Flores DO [address] [facility], 2nd [place] [address] PCP - General Internal Medicine 09/16/21 Amando Kat MD [address] [place] [address] [address] [place] [address] Cardiology 04/17/20 Erickson Huitron MD [address] [place] [address] [address] [place] [address] Urology 04/17/20 [place] [address] Internal Medicine 04/26/21 Tavo Flores DO [address] [place] [address], [address] [place] [address] Insurance Assigned Provider 06/16/24 Additional Source Comments The information contained in this document represents components of the legal health record. It is not the complete legal health record.[facility]
--- OUTSIDE RECORDS SUMMARY | 2025-01-10 14:35 | XMS_ITS | Encounter Summary ---
Author Organization [facility] Address [address] [place] [address] [place] [address] Phone Care Team Providers Care Tie Tape Machine Operator Name Role Phone Amando Kat MD Unavailable [phone] Erickson Huitron MD Unavailable Sukhdev Boogie MD Unavailable [phone] Tavo Flores DO Primary Care Provider Tavo Flores DO Unavailable [phone] Reason for Visit * Reason Onset Date Comments Triage 01/09/2025 Yellow+abscess/c yst Encounter Details Date Type Department Care Team (Late st Contact Info) Description 01/09/2025 Telephone [facility] [address] [place] [address] Tavo Flores DO [address] [facility], 2nd [place] [address] [email or web address] Triage (Yellow+abscess/cyst) Social History Tobacco Use Types Packs/Day Years [...] PM EST documented as of this encounter Progress Notes * Bartolo Rowley RN - 01/10/2025 8:32 AM EDT Brett reports a golf ball sized cyst in between his buttocks. He popped this yesterday and today reports significant improvement in discomfort. States initially there was blood drainage. Today denies increasing redness, warmth, and drainage. He was advised by [facility] general surgery he will need to see [facility] or [facility]. He is requesting referral to [facility] and would like a specific surgeon's name vimalw online. Reviewed use of warm compresses, warm soaks, tylenol as needed, and s/sx of infection, and UC precautions. Brett verbalized understanding. * Genie Domingo - 01/09/2025 4:29 PM EDT [facility] Top Smart Phrases: Complete the Following for ALL Patient Symptoms [facility] [place] Yellow Green Tool Call Back Number: (& caller's name if not the patient) [phone] Description of Symptoms: What symptoms are you experiencing? Pt called and has Sebaceous cyst in between his buttocks and he has popped it and thinks it may be infected it was not yellow he states it was bloody, he was told [facility] General surgery will not do this surgery due to potential heart issues, he spoke with PCP about this about a year ago, he would like a referral to somewhere else that will handle this procedure with his heart issues and would like a recommendation for some place [place]. When did the symptoms start? 01/09/25 Has this happened before? Yes - previous episode(s); current symptoms started 01/09/25 1) Enter the Reason for Call (TRIAGE) & RFC Comment (COLOR + Symptom) (Ex: TRIAGE - YELLOW, tick bite ) 2) Select the color-based designation below before taking next steps & documenting the outcome Yellow Call Designation & Outcome Yellow Symptom(s): Abscess/cyst Route Normal Priority to training systems officer. A nurse will call back to discuss symptoms further to best determine next steps. documented in this encounter Plan of Treatment Not on file documented as of this encounter Visit Diagnoses Not on filedocumented in this encounter Additional Health Concerns Assessment Noted Time PHQ-9 Depression Total Score: 3 03/26/19 19 10:48 AM EST PHQ-2 Depression Total Score: 0 05/20/19 23 9:02 AM EST documented as of this encounter Care Teams Tie Tape Machine Operator Relationship Specialty Start Date End Date Tavo Flores DO [address] [place] [address], [address] [place] [address] PCP - General Internal Medicine 09/16/21 Amando Kat MD [address] [place] [address] [address] [place] [address] Cardiology 04/17/20 Erickson Huitron MD [address] [place] [address] [address] [place] [address] Urology 04/17/20 [place] [address] Internal Medicine 04/26/21 Tavo Flores DO [address] [place] [address], 2[address] [place] [address] [email or web address] Insurance Assigned Provider 06/16/24 documented as of this encounter Additional Source Comments The information contained in this document represents components of the legal health record. It is not the complete legal health record.[facility]
--- OUTSIDE RECORDS SUMMARY | 2025-01-10 14:35 | XMS_ITS | Encounter Summary ---
Author Organization [facility] Address [address] [place] [address] Phone Care Team Providers Care Director Geophysical Laboratory Name Role Phone Unknown, Unknown Primary Care Provider Danilo Holly MD Primary Care Provider [phone] Danilo Ann MD Unavailable [phone] Amanod Kat MD Unavailable [phone] Erickson Huitron MD Unavailable Sukhdev Boogie MD Unavailable [phone] Tavo Flores DO Primary Care Provider Danilo Ann MD Unavailable [phone] Tavo Flores DO Unavailable [phone] Encounter Details Date Type Department Care Team (Latest Contact Info) Description 01/18/2016 Transcribe Orders [facility]ology [address] [address] Asia [place] MD, PhD [address] [place] [address] [email or web address] SNHL (sensory-neural hearing loss), asymmetrical (Primary Dx) [...] as of this encounter Care Teams Director Geophysical Laboratory Relationship Specialty Start Date End Date Unknown, Unknown, MD PCP - General 01/01/16 01/17/17 Danilo Ann MD [address] [place] [address] [email or web address] PCP - General Internal Medicine 01/18/17 09/15/21 Tavo Flores DO [address] [place] [address], 2[address] [place] [address] [email or web address] PCP - General Internal Medicine 09/16/21 Danilo Ann MD [address] [place] [address] [email or web address] Insurance Assigned Provider 10/14/17 03/15/22 Amando Kat MD [address] [place] [address] [address] [place] [address] Cardiology 04/17/20 Erickson Huitron MD [address] [place] [address] [address] [place] [address] Urology 04/17/20 [place] [address] Internal Medicine 04/26/21 Danilo Ann MD [address] [address] [email or web address] Insurance Assigned Provider 10/14/17 03/19/22 Tavo Flores DO [address] [place] [address], 2nd [place] [address] [email or web address] Insurance Assigned Provider 06/16/24 documented as of this encounter Additional Source Comments The information contained in this document represents components of the legal health record. It is not the complete legal health record.[facility]
--- OUTSIDE RECORDS SUMMARY | 2025-01-10 14:35 | XMS_ITS | Encounter Summary ---
Author Organization [facility] Address [address] [place] [address] [place] [address] Phone Care Team Providers Care Button Tufting Machine Operator Name Role Phone Amando Kat MD Unavailable [phone] Erickson Huitron MD Unavailable [phone] Sukhdev Boogie MD Unavailable [phone] Tavo Flores DO Primary Care Provider Tavo Flores DO Unavailable [phone] Reason for Visit * Reason Onset Date Comments Appointment 01/09/2025 Encounter Details Date Type Department Care Team (Late st Contact Info) Description 01/09/2025 Telephone [facility] [address] [place] [address] Lila Sanders MD [address] [facility], 2nd [place] [address] [email or web address] Appointment Social History Tobacco Use Types Packs/Day Years [...] as of this encounter Progress Notes * Kassy Brower - 01/10/2025 1:50 PM EDT PT left a second message requesting an appt on 01/09 [facility] CSS Agent (Please do not reply to this user, as this inbox is not monitored. Thank you.) Thank you. * Kassy Brower - 01/09/2025 2:50 PM EDT PT lm on 01/09 requesting a call to set up surgery for cysts. Please advise. [facility] CSS Agent (Please do not reply to this user, as this inbox is not monitored. Thank you.) Thank you. documented in this encounter Plan of Treatment Not on file documented as of this encounter Visit Diagnoses Not on filedocumented in this encounter Additional Health Concerns Assessment Noted Time PHQ-9 Depression Total Score: 3 03/26/19 19 10:48 AM EST PHQ-2 Depression Total Score: 0 05/20/19 23 9:02 AM EST documented as of this encounter Care Teams Button Tufting Machine Operator Relationship Specialty Start Date End Date Tavo Flores DO [address] [place] [address], [address] [place] [address] [email or web address] PCP - General Internal Medicine 09/16/21 Amando Kat MD [address] [place] [address] [address] [place] [address] Cardiology 04/17/20 Erickson Huitron MD [address] [place] [address] [address] [place] [address] Urology 04/17/20 [place] [address] Internal Medicine 04/26/21 Tavo Flores DO [address] [place] [address], [address] [place] [address] [email or web address] Insurance Assigned Provider 06/16/24 documented as of this encounter Additional Source Comments The information contained in this document represents components of the legal health record. It is not the complete legal health record.[facility]
--- OUTSIDE RECORDS SUMMARY | 2025-01-10 14:35 | XMS_ITS | Encounter Summary ---
Author Organization [facility] Address [address] [place] [address] Phone Care Team Providers Care Traffic Supervisor Name Role Phone Unknown, Unknown Primary Care Provider Danilo Holly MD Primary Care Provider [phone] Danilo Ann MD Unavailable [phone] Amando Kat MD Unavailable [phone] Erickson Huitron MD Unavailable Sukhdev Boogie MD Unavailable [phone] Tavo Flores DO Primary Care Provider Danilo Ann MD Unavailable [phone] Tavo Flores DO Unavailable [phone] Encounter Details Date Type Department Care Team (Late st Contact Info) Description 05/25/2016 Transcribe Orders [facility] [address] [place] [address] Juliet Nelson [address] [place] [address] [email or web address] Social History Tobacco Use Types Packs/Day Years [...] documented as of this encounter Care Teams Traffic Supervisor Relationship Specialty Start Date End Date Unknown, Unknown, MD PCP - General 01/01/16 01/17/17 Danilo Ann MD [address] [place] [address] [email or web address] PCP - General Internal Medicine 01/18/17 09/15/21 Tavo Flores DO [address] [place] [address] PCP - General Internal Medicine 09/16/21 Danilo Ann MD [address] [address] [email or web address] Insurance Assigned Provider 10/14/17 03/15/22 Amando Kat MD [address] [place] [address] [address] [place] [address] Cardiology 04/17/20 Erickson Huitron MD [address] [place] [address] 240 [place] [address] Urology 04/17/20 [place] [address] Internal Medicine 04/26/21 Danilo Ann MD [address] [address] [email or web address] Insurance Assigned Provider 10/14/17 03/19/22 Tavo Flores DO [address] [place] [address], [address] [place] [address] [email or web address] Insurance Assigned Provider 06/16/24 documented as of this encounter Additional Source Comments The information contained in this document represents components of the legal health record. It is not the complete legal health record.[facility]
--- OUTSIDE RECORDS SUMMARY | 2025-01-10 14:35 | XMS_ITS | Encounter Summary ---
Author Organization [facility] Address [address] [place] [address] Phone Care Team Providers Care Office Clerk Routine Name Role Phone Danilo Ann MD Primary Care Provider + [phone] Danilo Ann MD Unavailable [phone] BuffAmando camacho MD Unavailable [phone] Erickson Huitron MD Unavailable KeaganSukhdev guillen MD Unavailable [phone] Tavo Flores DO Primary Care Provider Danilo Ann MD Unavailable [phone] Tavo Flores DO Unavailable [phone] Encounter Details Date Type Department Care Team (Late st Contact Info) Description 01/20/2017 Procedure Pass [facility] Cardiovascular And Interventional Radiology [address] [place] [address] Social History Tobacco Use Types Packs/Day Years [...] documented as of this encounter Care Teams Office Clerk Routine Relationship Specialty Start Date End Date Danilo Ann MD [address] [address] [email or web address] PCP - General Internal Medicine 01/18/17 09/15/21 Tavo Flores DO [address] [place] [address], 2nd [place] [address] [email or web address] PCP - General Internal Medicine 09/16/21 Danilo Ann MD [address] [place] [place] [address] [email or web address] Insurance Assigned Provider 10/14/17 03/15/22 Amando Kat MD [address] [place] [address] [address] [place] [address] Cardiology 04/17/20 Erickson Huitron MD [address] [place] [address] [address] [place] [address] Urology 04/17/20 [place] [address] Internal Medicine 04/26/21 Danilo Ann MD [address] [place] [place] [address] [email or web address] Insurance Assigned Provider 10/14/17 03/19/22 Tavo Flores DO [address] [place] [address], 2nd [place] [address] [email or web address] Insurance Assigned Provider 06/16/24 documented as of this encounter Additional Source Comments The information contained in this document represents components of the legal health record. It is not the complete legal health record.[facility]
--- OUTSIDE RECORDS SUMMARY | 2025-01-10 14:35 | XMS_ITS | Encounter Summary ---
Author Organization [facility] Address [address] [place] [address] Phone Care Team Providers Care Cage/Vault Supervisor Name Role Phone Amando Kat MD Unavailable [phone] Erickson Huitron MD Unavailable Sukhdev Boogie MD Unavailable [phone] Tavo Flores DO Primary Care Provider Tavo Flores DO Unavailable Encounter Details Date Type Department Care Team (Late st Contact Info) Description 06/03/2024 Procedure Pass [facility] [place], [address] [address] Social History Tobacco Use Types Packs/Day Years [...] documented as of this encounter Care Teams Cage/Vault Supervisor Relationship Specialty Start Date End Date Tavo Flores DO [address] [place] [address] PCP - General Internal Medicine 09/16/21 Amando Kat MD [address] [place] [address] [address] [place] [address] Cardiology 04/17/20 Erickson Huitron MD [address] [place] [address] [address] [place] [address] Urology 04/17/20 [place] [address] Internal Medicine 04/26/21 Tavo Flores DO [address] [place] [address], [address] [place] [address] [email or web address] Insurance Assigned Provider 06/16/24 documented as of this encounter Additional Source Comments The information contained in this document represents components of the legal health record. It is not the complete legal health record.[facility]
--- OUTSIDE RECORDS SUMMARY | 2025-01-10 14:35 | XMS_ITS | Clinical Summary ---
Author Organization [facility] Address [address] [place] [address] Care Team Providers Care Scouring Train Operator Chief Name Role Phone Danilo Ann MD Primary Care Provider [phone] Social History Tobacco Use Types Packs/Day Years [...] age to complete this topic Care Teams Scouring Train Operator Chief Relationship Specialty Start Date End Date Danilo Ann MD [address] [place] [address] PCP - General Internal Medicine 01/14/19
--- OUTSIDE RECORDS SUMMARY | 2025-01-10 14:35 | XMS_ITS | Encounter Summary ---
Author Organization [facility] Address [address] [place] [address] Phone Care Team Providers Care Corn Grower Name Role Phone Danilo Ann MD Primary Care Provider + [phone] Danilo Ann MD Unavailable [phone] BuffAmando camacho MD Unavailable [phone] Erickson Huitron MD Unavailable [phone] Sukhdev Boogie MD Unavailable [phone] Tavo Flores DO Primary Care Provider Danilo Ann MD Unavailable [phone] Tavo Flores DO Unavailable [phone] Encounter Details Date Type Department Care Team (Late st Contact Info) Description 05/30/2019 Transcribe Orders [facility] Laboratory [address] [place] [address] Erickson Huitron MD [address] [place] [address] [address] [place], [place] [id number] Hypogonadism, male (Primary Dx) Social History Tobacco [...] EDT) TESTOSTERONE 649 249 - 836 ng/dL [facility] Blood 05/30/2019 10:4 0 AM EDT 05/30/2019 10:41 AM EDT us Erickson Huitron MD LAB BLOOD ORDERABLES Final Result [address] [address] * CBC (05/30/2019 10:40 AM EDT) WBC 6.18 4.00 - 11.00 K/uL [facility] Comment:Note Reference Range updates to all CBC and Differential results. RBC 4.96 3.90 - 5.69 M/uL [facility] HGB 15.8 12.4 - 17.3 g/dL [facility] Comment:Note updated Referen ce Ranges for all CBC and Differential results. HCT 47.5 37.0 - 51.0 % [facility] PLT 189 140 - 430 K/uL [facility] MCV 95.8 78.0 - 97.0 fL [facility] MCH 31.9 25.0 - 33.0 pg [facility] MCHC 33.3 32.0 - 36.0 g/dL [facility] RDW 13.0 11.0 - 15.0 % [facility] MPV 12.1 8.4 - 12.8 fl [facility] NRBC 0.00 0 /100 WBCs [facility] ABSOLUTE NRBC 0.00 0 K/uL [facility] Blood 05/30/2019 10:4 0 AM EDT 05/30/2019 10:41 AM EDT us Erickson Huitron MD LAB BLOOD ORDERABLES Final Result [address] [address] * PSA (screening) (05/30/2019 10:40 AM EDT) PSA 2.87 0 - 4.00 ng/mL [facility] Blood 05/30/2019 10:4 0 AM EDT 05/30/2019 10:41 AM EDT us Erickson Huitron MD LAB BLOOD ORDERABLES Final Result Performing Organization Address [facility] Co de Phone Number [address] [address] documented in this encounter Visit Diagnoses Diagnosis Hypogonadism, male- Primary Other testicular hypofunction documented in this encounter Additional Health Concerns Infection Onset Date Last Indicated Resolved Time CoV-Presumed 08/03/2021 08/03/2021 08/24/2021 1:21 AM EDT Assessment Noted Time PHQ-9 Depression Total Score: 3 03/26/19 10:48 AM EST PHQ-2 Depression Total Score: 0 04/15/19 10:47 AM EST documented as of this encounter Care Teams Corn Grower Relationship Specialty Start Date End Date Danilo Ann MD [address] [place] [address] [email or web address] PCP - General Internal Medicine 01/18/17 09/15/21 Tavo Flores DO [address] [place] [address], 2nd [place] [address] PCP - General Internal Medicine 09/16/21 Danilo Ann MD [address] [address] [email or web address] Insurance Assigned Provider 10/14/17 03/15/22 Amando Kat MD [address] [place] [address] Drive [address] [place] [address] Cardiology 04/17/20 Erickson Huitron MD [address] [facility] [address] [place] [address] Urology 04/17/20 [place] [address] Internal Medicine 04/26/21 Danilo Ann MD [address] [place] [address] [address] [place] [address] [email or web address] Insurance Assigned Provider 10/14/17 03/19/22 Tavo Flores DO [address] [place] [address], 2[address] [place] [address] Insurance Assigned Provider 06/16/24 documented as of this encounter Additional Source Comments The information contained in this document represents components of the legal health record. It is not the complete legal health record.[facility]
--- OUTSIDE RECORDS SUMMARY | 2025-01-10 14:35 | XMS_ITS | Clinical Summary ---
Author Organization [facility] Address [address] [facility] [place] [address] Phone Care Team Providers Care Medical Library Assistant Name Role Phone Unavailable Primary Care Provider [...] therapy which he has already done at [facility], spinal cord stimulator and the Intracept procedure. [...] discuss injections and the Intracept procedure at [facility] and he was given a brochure on it. Before considering any intervention, I am going to send him for new lumbar spine MRI since his pain has worsened and the previous study is 2 years old. In the interim, he will continue using marijuana and walking 1 to 2 miles per day as tolerated. Prediabetes 01/19/2021 Wild-type transthyretin-rela marcelo (ATTR) amyloidosis ([facility] V24, [facility] V28) 07/06/2020 Assessment & Plan (04/05/2024 3:58 PM EST): Patient continues to follow with Dr. Boogie at [facility] for history of wild-type ATTR amyloidosis. His condition appears to be stable and he appears euvolemic at this time. He will continue on tafamidis and furosemide as prescribed. Stage 3 chronic kidney disease ([facility] V24, [facility] V28) 06/03/2020 Hyperlipidemia 06/02/2020 Assessment & Plan (11/14/2024 11:56 AM EDT): Lipids are monitored by his primary care provider. 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 He is being treated with tafamidis. His symptoms remain stable. No changes at this time. Assessment & Plan (07/24/2024 3:45 PM EDT): Patient with a amyloid myopathy. Followed at the amyloid clinic [facility]. Patient with no chest pain pressure shortness of breath. No syncope presyncope or palpitations. Patient's echocardiograms are followed in [place] were not can repeat them locally. He [...] and permanent pacemaker placement. 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 Resolved Problems Problem Noted Date Diagnosed Date Resolved Date Abnormal blood level of uric acid 01/19/2021 11/14/2024 Elevated BP without diagnosis of hypertension 08/22/1911/14/2024 Functional weakness 06/13/2019 11/15/19 25 Adjustment reaction 09/24/2018 11/15/19 25 Night sweats 01/29/2018 11/14/2024 Serum albumin decreased 01/29/201806/2024 Encounters Date Type Department Care Team Description 12/19/2024 Telephone [facility] [address] [place] [address] [address] [place] [address] Amando Kat MD 12/17/2024 Telephone [facility] [address] [place] [address] [place] [address] Amando Kat MD 12/16/2024 Telephone [facility] [address] [place] [address] [address] [place] [address] Amando Kat MD 12/04/2024 Telephone [facility] [address] [place] [address] [address] [place] [address] Amando Kat MD 11/18/[address] [facility] [address] [facility] [address] [place] [address] Provider, Not In System 11/14/2024 8:10 AM EDT Consult [facility] [address] [facility] [address] [place] [address] Heather Mederos, MANUELA 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 V28) (Primary Dx); Primary hypertension; Longstanding persistent atrial fibrillation ([facility] V24, [facility] V28); Mixed hyperlipidemia; Preoperative cardiovascular examination 10/25/2024 Telephone [facility] Cardiology [facility] [address] [facility] [address] [place] [address] Amando Kat MD from Last [...] Date Site/Laterality Comments TOTAL KNEE ARTHROPLASTY PROCEDURE: [facility] ARTHRP KNE CONDYLE&PLATU MEDIAL&LAT COMPARTMENTS OTHER SURGICAL HISTORY PROCEDURE: [facility] ARTHRP ACETBLR/PROX FEM PROSTC AGRFT/ALGRFT SHOULDER SURGERY Right PROCEDURE: HISTORICAL SHOULDER SURGERY BACK SURGERY 01/22/2019 PROCEDURE: HISTORICAL BACK SURGERY; COMMENT: L2-3 L3-4 decomp Medical History Medical History Date Comments A-fib ([facility] V24, [facility] V28) DX:A-fib ([facility]) Amyloidosis ([facility] V24, [facility] V28) DX:Amyloidosis ([facility]) Sensorineural hearing loss DX:Se nsorineural hearing loss [...] ms GEMUSE QTc 437 ms GEMUSE R [place] -83 degrees GEMUSE T [place] 95 degrees GEMUSE ECG Interpretation Atrial fibrillation with rapid ventricular response Left axis deviation Inferior-instructor looping ior infarct (cited on or before 16-JAN-2019) Anterior infarct (cited on or before 16-JAN-2019) Abnormal ECG When compared with ECG of 05-APR-2024 13:57, No significant change was found Confirmed by Arsenio KAT JAMES ([id number]) on 11/14/2024 12:42:37 PM GEMUSE 11/14/2024 8:30 AM EDT 11/14/2024 12:42 PM EDT us Heather Mederos CYLINDER HEAD ASSEMBLER ECG ORDERABLES Edited Resul t - Final GEMUSE * Annual BMP Blood Test (02/06/2023) Annual BMP Blood Test abstracted Historical Provider HEALTH MAINTENANCE Final Result from Last 3 Months or Most Recently Relevant to Health Maintenance Insurance MEDICARE [facility]
--- OUTSIDE RECORDS SUMMARY | 2025-01-10 14:35 | XMS_ITS | Encounter Summary ---
Author Organization [facility] Address [address] [place] [address] Phone Care Team Providers Care Manager Delivery Name Role Phone Amando Kat MD Unavailable [phone] Erickson Huitron MD Unavailable Sukhdev Boogie MD Unavailable [phone] Tavo Flores DO Primary Care Provider Tavo Flores DO Unavailable [phone] Reason for Referral * MRI/CAT Scan - Closed Specialty Diagnoses / Procedures Referred By Nevaeh taylor Referred To Contact Radiology Diagnoses Low back pain, unspecified back pain laterality, unspecified chronicity, unspecified whether sciatica present Spinal stenosis of lumbar region, unspecified whether neurogenic claudication present Procedures MRI Lumbar Spine Paola Arizmendi MD [address] [place] [address] Phone: tel: fax: Referral ID Status Reason Start Date Expiration Date Visits Re quested Visits Authorized [id number] Closed 06/03/2024 06/03/2025 1 1 Encounter Details Date Type Department Care Team (Latest Contact Info) Description 06/03/2024 Transcribe Orders [facility] Department [address] [place] [address] Paola Arizmendi MD [address] [place] [address] Low back pain, unspecified back pain laterality, [...] documented as of this encounter Care Teams Manager Delivery Relationship Specialty Start Date End Date Tavo Flores DO [address] [place] [address], 2nd [place] [address] [email or web address] PCP - General Internal Medicine 09/16/21 Amando Kat MD [address] [place] [address] [address] [place] [address] Cardiology 04/17/20 Erickson Huitron MD [address] [place] [address] [address] [place] [address] Urology 04/17/20 [place] [address] Internal Medicine 04/26/21 Tavo Flores DO [address] [place] [address], 2nd [place] [address] [email or web address] Insurance Assigned Provider 06/16/24 documented as of this encounter Additional Source Comments The information contained in this document represents components of the legal health record. It is not the complete legal health record.[facility]
--- OUTSIDE RECORDS SUMMARY | 2025-01-10 14:35 | XMS_ITS | Data Portability ---
Author Organization [place] - [facility], Allergy Address [address] [place] [address] Care Team Providers Care Athletic Instructor Name Role Phone DANIEL EVANGELISTA Primary Care [...] were unable to pair it to the [employer] application. Patient does not appear bothered by this but I encouraged him to try pairing at home after we called [employer] and they explained that a better cell phone signal may be necessary. We can revisit this at a later appointment. Regarding the earmold, a new impression was taken of his left ear and sent with the earmold to [facility] for remake. Patient has a scheduled appointment [...] reported satisfaction with sound quality and output. [email or web address] Not available 02/23/2024 15:01:28 03/14/2024 03/14/2024 03-14-2024 [...] hearing aids. Patient was given paperwork for [employer] and I filled out the areas pertaining to the hearing aid purchase. He understands if there is a problem with reimbursement, he needs to call the insurance company himself. He has the date for warranty expiration. He understands we would like to return the aids to [facility] prior to expiration, to have the aids cleaned, checkes, and THE BATTERIES REPLACED. Return PRN Hearing Aid Fitting Details Date: Cement Sack Breaker & Model: Phonak Ruth L 90-RI's Color: Silver ceballos Ear coupling: tone hook Serial Numbers Right: [id number] Left: [id number] Warranty Expiration: 03-05-2027 Accessories: Skeleton molds with [...] low so he placed it in the set up and charger for a few seconds, then was able to continue using is for the rest of the day. For this reason, I suggested we send it to [facility] to be checked. He may be having [...] he can put the aid(s) in the set up and charger for 30-60 minutes and will get [...] sensorin eural hearing loss of right ear [id number] 105 Active 2016 Mixed 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, unilater al, right ear with restrict ed hearing on the contrala teral side; Note: Date Diagnose d: 7 11:57 AM (H90.A31 ) Not Available [facility] 4 03:13:03 Sensorin eural hearing loss in left ear 00223799320 109 Active 2016 Sensorin eural hearing loss, unilater al, left ear, with restrict ed hearing on the contrala teral side; Note: Date Diagnose d: 7 11:57 AM (H90.A22 ) Not Available [facility] 4 03:13:04 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 50094431 Completed 201710/13/2023 Otoscler osis involvin g oval window, oblitera tive, right ear; Note: Date Diagnose d: 05/15/2017 12:06 PM (H80.11) Not Available [facility] 4 03:13:03 Otoscler osis 76434421 Completed 201710/13/2023 Unspecif ied otoscler osis, left ear; Note: Date Diagnose d: 05/15/2017 12:06 PM (H80.92) Unspec ified otoscler osis, bilatera l; Note: Date Diagnose d: 7 11:58 AM (H80.93) ; Start Date : 09/01/19 Not Available [facility] 4 03:13:04 Follow-u p visit Active 2017 Medical surveill ance followin g complete d treatmen t; Note: Date Diagnose d: 8 10:30 AM (Z09) Not Available [facility] 4 03:13:03 Abnormal auditory percepti on 92194614 Active 2017 Other abnormal auditory percepti ons, right ear; Note: Date Diagnose d: 8 2:49 PM (H93.291 ) Not Available [facility] 4 03:13:04 Mixed 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, bilatera l 882620520 Active 2019 Mixed 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, bilatera l; Note: Date Diagnose d: 0 3:55 PM (H90.6) Not Available [facility] 4 03:13:05 Acute serous otitis media of left ear [id number] 48446 Completed 201910/13/2023 Acute serous otitis media, left ear; Note: Date Diagnose d: 0 4:54 PM (H65.02) Not Available [facility] 4 03:13:04 Impacted cerumen in left ear 77314711289 78425 Active 2019 Impacted cerumen, left ear; Note: Date Diagnose d: 0 8:44 AM (H61.22) Not Available [facility] 4 03:13:04 Otoscler osis 24513819 Active 2023 HAILEE WOODRUFF MD [address] [place] [address],[place] [address], [place], [address] , [facility] - [facility] 4 12:52:57 Sensorin eural hearing loss of bilatera l ears 537695386 Active 2023 MAI FULLER MA, CCC-A [address] [place] [address],[place] [address], [place], [address] , [facility] - [facility] 15:18:30 Problem Notes None recorded. Procedures Surgical History Date Name Laterality Status Provider Name and Address Organization Details Recorded Time 11/29/2023 Comp Audio with Tymps - 58854 & 17001 completed MAI FULLER MA, [facility] [address] [facility], [place], [address], [facility] 11/29/2023 09:33:52 Imaging Results None recorded. [...] 24 hr 07/26 completed Medicati on ID: [id number] D uration Value: 90 Reason: () Brand Name: metoprol ol succinat e Send Method: E-Prescr ibed Sub s Allowed: subs OK Speci al Instruct ion: TAKE 1 TABLET BY MOUTH TWICE A DAY Medi cationGe nericNam e: metoprol ol succinat e Not Available Not Available Not Available hydrocodo ne 5 mg-acetam inophen 325 mg tablet 10/17 completed Medicati on ID: [id number] D uration Value: 3 Reason: () Brand [...] by mouth 11/28 completed Medicati on ID: [id number] D uration Value: 3 Prescri bed By [...] eye drops 11/28 completed Medicati on ID: [id number] D uration Value: 10 Prescri bed By [...] mg capsule 2019 active Medicati on ID: [id number] D uration Value: 5 Brand Name: oseltami [...] 24 hr 2017 active Medicati on ID: [id number] D uration Value: 30 Brand Name: metoprol [...] mg tablet 2017 active Medicati on ID: [id number] D uration Value: 45 Brand Name: Multaq S end Method: E-Prescr ibed Sub s Allowed: subs OK Speci al Instruct ion: TAKE 1 TABLET BY MOUTH TWICE A DAY WITH MEALS Me dication GenericN kobe: Multaq Not Available Not Available Not Available testoster one 10 mg/0.5 gram/actu ation transderm al gel pump 11/28 completed Medicati on ID: [id number] D uration Value: 24 Brand Name: oren [...] ICD10 Code Diagnosis IMO Codes Diagnosis Note [id number] AHILEE WOODRUFF MD [facility] [address] [address] 11/29/2023 08:20:20 11/29/2023 09:56:38 Otosclerosis 08846663 H80.93 Sensorineu ral hearing loss in left ear 5503507499 9109 H90.A22 Audiologic al evaluation results: Right ear: Mild to profound mixed hearing loss with excellent word recognitio n. Left ear: mild sloping to profound SNHL with excellent word recognitio n. Tympanomet ry: Right Ear:Type Ad Left Ear:Type A Mixed cond uctive and sensorineural hearing loss of right ear 4868345351 9105 H90.A31 [id number] MAI FULLER MA, CCC-A [facility] [address] [address] 11/29/2023 09:33:21 11/29/2023 11:53:20 Sensorineural hearing loss in left ear 4970067647 9109 H90.A22 Audiologic al evaluation results: Right ear: Mild to profound mixed hearing loss with excellent word recognitio n. Left ear: mild sloping to profound SNHL with excellent word recognitio n. Tympanomet ry: Right Ear:Type Ad Left Ear:Type A Mixed cond uctive and sensorineural hearing loss of right ear 0640164787 9105 H90.A31 MAI FULLER [place], [facility] [place] [address] [facility],[place] [address] [place] [address] 12/13/2023 13:05:09 12/14/2023 07:10:04 Sensorineural hearing loss of bilateral ears 953976239 H90.3 [id number] MAI FULLER MA, [facility] [place] [address] [facility],[place] [address] [place] [address] 01/02/2024 11:01:33 01/02/2024 11:28:39 Sensorineural hearing loss of bilateral ears 805837034 H90.3 [id number] MAI FULLER MA, CCC-A [place] [address] [facility],[place] [address] [place] [address] 01/10/2024 15:53:56 01/15/2024 07:06:45 Mixed conductive and sensorineural hearing loss of right ear 6263014460 9105 H90.A31 Mixed cond uctive and sensorineural hearing loss, bilateral 981291303 H90.6 [id number] MAI FULLER MA, [facility] [place] [address] [facility] [place] 100 [place] [address] 02/13/2024 10:01:00 02/14/2024 07:57:31 Mixed conductive and sensorineural hearing loss of right ear 4400738609 9105 H90.A31 [id number] MAI FULLER MA, [facility] [place] [address] [facility],[place] [address] [place] [address] 02/20/2024 09:01:19 02/21/2024 07:48:56 Mixed conductive and sensorineural hearing loss, bilateral 942064669 H90.6 [id number] ESTEPHANIA CLINE [facility] [place] [address] [facility],[place] [address] [place] [address] 02/23/2024 14:33:59 02/26/2024 08:45:33 Sensorineural hearing loss of bilateral ears 318871449 H90.3 [id number] MAI FULLER MA, CCC-A [place] [address] [facility],[place] [address] [place] [address] 03/14/2024 12:58:07 03/16/2024 07:48:56 Otosclerosis 22283919 H80.93 [id number] MAI FULLER MA, [facility] [place] [address] [facility], [address] 100 [place] [address] 03/26/2024 10:58:36 03/27/2024 08:26:53 Sensorineural hearing loss in left ear 9761832696 9109 H90.A22 [id number] MAI FULLER MA, [facility] [place] [address] [facility] [place] [address] 06/04/2024 09:58:49 06/10/2024 14:52:03 Otosclerosis 28004994 H80.93 Health Concerns Section Related Observation LastModified by Organization Detai ls LastModified Time None Recorded Concern Status LastModified by Organization Details LastModified Time None Recorded Advance Directives Directive None Recorded Payers Insurance Date Sequence Insurance Name Policy Number Policy Johnson Covered Member ID Johnson Member ID Guarantor Name 06/04/2024 1 MEDICARE B-[place]: [employer] Brett Conde Jr [id number] Brett Conde Jr 06/10/2024 2 [facility] INDEMNITY PLAN (MEDICARE SUPPLEMENT) [id number] Margie Conde [id number] Brett Conde Jr Notes Date Note Type [...] making beeping chimes. ESTEPHANIA CLINE, Jonathan [address] [facility],[place] [address], [place], [address], [facility] - [facility] 02/23/2024 15:29:36 06/04/2024 text/html Longstanding hearing loss and longstanding hearing aid use. I believe his current set of Phonak Ruth's are his third set of hearing aids. MAI FULLER MA, CCC-A [address] [facility], [place], [address], [facility] - [facility] 06/04/2024 10:54:19
--- OUTSIDE RECORDS SUMMARY | 2025-01-10 14:35 | XMS_ITS | Encounter Summary ---
Author Organization [facility] Address [address] [place] [address] Phone Care Team Providers Care Swine Nutritionist Name Role Phone Unknown, Unknown Primary Care Provider Danilo Holly MD Primary Care Provider + [phone] Danilo Ann MD Unavailable +[phone] Amando Kat MD Unavailable [phone] Erickson Huitron MD Unavailable Sukhdev Boogie MD Unavailable [phone] Tavo Flores DO Primary Care Provider Danilo Ann MD Unavailable [phone] Tavo Flores DO Unavailable [phone] Encounter Details Date Type Department Care Team (Late st Contact Info) Description 01/19/2016 Procedure Pass [facility] - CT, [address] [address] Social History Tobacco Use Types Packs/Day Years [...] documented as of this encounter Care Teams Swine Nutritionist Relationship Specialty Start Date End Date Unknown, Unknown, PCP - General 01/01/16 01/17/17 Danilo Ann MD [address] [address] [email or web address] PCP - General Internal Medicine 01/18/17 09/15/21 Tavo Flores DO [address] [place] [address], 2nd [place] [address] [email or web address] PCP - General Internal Medicine 09/16/21 Danilo Ann MD [address] [place] [address] [email or web address] Insurance Assigned Provider 10/14/17 03/15/22 Amando Kat MD [address] [place] [address] [address] [place] [address] Cardiology 04/17/20 Erickson Huitron MD [address] [place] [address] [address] [place] [address] Urology 04/17/20 [place] [address] Internal Medicine 04/26/21 Danilo Ann MD [address] [place] [address] [email or web address] Insurance Assigned Provider 10/14/17 03/19/22 Tavo Flores DO [address] [place] [address], 2[address] [place] [address] [email or web address] Insurance Assigned Provider 06/16/24 documented as of this encounter Additional Source Comments The information contained in this document represents components of the legal health record. It is not the complete legal health record.[facility]
--- OUTSIDE RECORDS SUMMARY | 2025-01-10 14:35 | XMS_ITS | Encounter Summary ---
Author Organization [facility] Address [address] [place] [address] Phone Care Team Providers Care Pipeline Systems Operator Name Role Phone Unknown, Unknown Primary Care Provider Danilo Holly MD Primary Care Provider + [phone] Danilo Ann MD Unavailable +[phone] Amando Kat MD Unavailable [phone] Erickson Huitron MD Unavailable Sukhdev Boogie MD Unavailable [phone] Tavo Flores DO Primary Care Provider Danilo Ann MD Unavailable [phone] Tavo Flores DO Unavailable [phone] Encounter Details Date Type Department Care Team (Late st Contact Info) Description 05/19/2016 Procedure Pass [facility] [address] [place] [address] Social History Tobacco Use Types Packs/Day Years [...] documented as of this encounter Care Teams Pipeline Systems Operator Relationship Specialty Start Date End Date Unknown, Unknown, MD PCP - General 01/01/16 01/17/17 Danilo Ann MD [address] [address] [email or web address] PCP - General Internal Medicine 01/18/17 09/15/21 Tavo Flores DO [address] [place] [address], 2nd [place] [address] [email or web address] PCP - General Internal Medicine 09/16/21 Danilo Ann MD [address] [address] [email or web address] Insurance Assigned Provider 10/14/17 03/15/22 Amando Kat MD [address] [place] [address] [address] [place] [address] Cardiology 04/17/20 Erickson Huitron MD [address] [place] [address] [address] [place] [address] Urology 04/17/20 [place] [address] Internal Medicine 04/26/21 Danilo Ann MD 90 [facility] 101 [place] [address] [email or web address] Insurance Assigned Provider 10/14/17 03/19/22 Tavo Flores DO [address] [place] [address], 2nd [place] [address] [email or web address] Insurance Assigned Provider 06/16/24 documented as of this encounter Additional Source Comments The information contained in this document represents components of the legal health record. It is not the complete legal health record.[facility]
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
--- OUTSIDE RECORDS SUMMARY | 2025-01-10 14:36 | XMS_ITS | Encounter Summary ---
Author Organization [facility] Address [address] [place] [address] Phone Care Team Providers Care Scheduling Agent Name Role Phone Danilo Ann MD Primary Care Provider + [phone] Danilo Ann MD Unavailable [phone] BuffAmando MD Unavailable [phone] Erickson Huitron MD Unavailable KeaganSukhdev guillen MD Unavailable [phone] Tavo Flores DO Primary Care Provider Danilo Ann MD Unavailable [phone] Tavo Flores DO Unavailable [phone] Encounter Details Date Type Department Care Team (Late st Contact Info) Description 06/07/2017 Transcribe Orders [facility] Specimen Processing [address] [place], [place] [id number] Danilo Ann MD [address] [place] [phone] [email or web address] Social History Tobacco Use Types Packs/Day Years [...] documented as of this encounter Care Teams Scheduling Agent Relationship Specialty Start Date End Date Danilo Ann MD [address] [place] [address] [email or web address] PCP - General Internal Medicine 01/18/17 09/15/21 Tavo Flores DO [address] [place] [address], 2nd [place] [address] [email or web address] PCP - General Internal Medicine 09/16/21 Danilo Ann MD [address] [place] [address] [email or web address] Insurance Assigned Provider 10/14/17 03/15/22 Amando Kat MD [address] [place] [address] [address] [place] [address] Cardiology 04/17/20 Erickson Huitron MD [address] [place] [address] [address] [place] [address] Urology 04/17/20 [place] [address] Internal Medicine 04/26/21 Danilo Ann MD [address] [address] [email or web address] Insurance Assigned Provider 10/14/17 03/19/22 Tavo Flores DO [address] [place] [address], 2[address] [place] [address] [email or web address] Insurance Assigned Provider 06/16/24 documented as of this encounter Additional Source Comments The information contained in this document represents components of the legal health record. It is not the complete legal health record.[facility]
--- OUTSIDE RECORDS SUMMARY | 2025-01-10 14:36 | XMS_ITS | Encounter Summary ---
Author Organization [facility] Address [address] [place] [address] [place] [address] Phone Care Team Providers Care Heating And Ventilating Drafter Name Role Phone Danilo Ann MD Primary Care Provider + [phone] Danilo Ann MD Unavailable [phone] Amando Kat MD Unavailable [phone] Erickson Huitron MD Unavailable KeaganSukhdev guillen MD Unavailable [phone] Tavo Flores DO Primary Care Provider Danilo Ann MD Unavailable [phone] Tavo Flores DO Unavailable [phone] Encounter Details Date Type Department Care Team (Latest Contact Info) Description 04/04/2017 Ancillary [facility] [address] [facility] 3rd Floor, [address] [place] [address] Amando Knight DO [address] [facility] [address] [place] [address] [email or web address] Carotid artery disease, unspecified laterality [...] documented as of this encounter Care Teams Heating And Ventilating Drafter Relationship Specialty Start Date End Date Danilo Ann MD [address] [place] [address] [email or web address] PCP - General Internal Medicine 01/18/17 09/15/21 Tavo Flores DO [address] [place] [address], 2nd [place] [address] [email or web address] PCP - General Internal Medicine 09/16/21 Danilo Ann MD [address] [place] [address] [email or web address] Insurance Assigned Provider 10/14/17 03/15/22 Amando Kat MD [address] [place] [address] [address] [place] [address] Cardiology 04/17/20 Erickson Huitron MD [address] [place] [address] [address] [place] [address] Urology 04/17/20 [place] [address] Internal Medicine 04/26/21 Danilo Ann MD [address] [place] [address] [email or web address] Insurance Assigned Provider 10/14/17 03/19/22 Tavo Flores DO [address] [place] [address], 2nd [place] [address] [email or web address] Insurance Assigned Provider 06/16/24 documented as of this encounter Additional Source Comments The information contained in this document represents components of the legal health record. It is not the complete legal health record.[facility]
--- OUTSIDE RECORDS SUMMARY | 2025-01-10 14:36 | XMS_ITS | Encounter Summary ---
Author Organization [facility] Address [address] [place] [address] Phone Care Team Providers Care Web Interface Developer Name Role Phone Danilo Ann MD Primary Care Provider + [phone] Danilo Ann MD Unavailable +[phone] BuffAmando camacho MD Unavailable +[phone] Erickson Huitron MD Unavailable KeaganSukhdev guillen MD Unavailable [phone] Tavo Flores DO Primary Care Provider Danilo Ann MD Unavailable +[phone] Tavo Flores DO Unavailable +[phone] Encounter Details Date Type Department Care Team (Late st Contact Info) Description 04/04/2017 Ancillary [facility] [address] [place] [address] Amando Knight DO [address] [place] [address] [email or web address] Social History Tobacco Use Types Packs/Day Years [...] documented as of this encounter Care Teams Web Interface Developer Relationship Specialty Start Date End Date Danilo Ann MD [address] [address] [email or web address] PCP - General Internal Medicine 01/18/17 09/15/21 Tavo Flores DO [address] [place] [address], 2nd [place] [address] [email or web address] PCP - General Internal Medicine 09/16/21 Danilo Ann MD [address] [place] [address] [email or web address] Insurance Assigned Provider 10/14/17 03/15/22 Amando Kat MD [address] [place] [address] [address] [place] [address] Cardiology 04/17/20 Erickson Huitron MD [address] [place] [address] [address] [place] [address] Urology 04/17/20 [place] [address] Internal Medicine 04/26/21 Danilo Ann MD [address] [address] [email or web address] Insurance Assigned Provider 10/14/17 03/19/22 Tavo Flores DO [address] [place] [address], 2nd [place] [address] [email or web address] Insurance Assigned Provider 06/16/24 documented as of this encounter Additional Source Comments The information contained in this document represents components of the legal health record. It is not the complete legal health record.[facility]
--- OUTSIDE RECORDS SUMMARY | 2025-01-10 14:36 | XMS_ITS | Encounter Summary ---
Author Organization [facility] Address [address] [place] [address] Phone Care Team Providers Care Cadd Technician Name Role Phone Danilo Ann MD Primary Care Provider + [phone] Danilo Ann MD Unavailable [phone] BuffAmando camacho MD Unavailable [phone] Erickson Huitron MD Unavailable KeaganSukhdev guillen MD Unavailable +[phone] Tavo Flores DO Primary Care Provider Danilo Ann MD Unavailable [phone] Tavo Flores DO Unavailable [phone] Encounter Details Date Type Department Care Team (Late st Contact Info) Description 08/31/2017 Procedure Pass [facility] [address] [place] [address] Social History Tobacco Use Types Packs/Day Years [...] documented as of this encounter Care Teams Cadd Technician Relationship Specialty Start Date End Date Danilo Ann MD [address] [address] [email or web address] PCP - General Internal Medicine 01/18/17 09/15/21 Tavo Flores DO [address] [place] [address], 2nd [place] [address] [email or web address] PCP - General Internal Medicine 09/16/21 Danilo Ann MD [address] [place] [address] [email or web address] Insurance Assigned Provider 10/14/17 03/15/22 Amando Kat MD [address] [place] [address] [address] [place] [address] Cardiology 04/17/20 Erickson Huitron MD [address] [place] [address] [address] [place] [address] Urology 04/17/20 [place] [address] Internal Medicine 04/26/21 Danilo Ann MD [address] [place] [address] [email or web address] Insurance Assigned Provider 10/14/17 03/19/22 Tavo Flores DO [address] [place] [address], 2nd [place] [address] [email or web address] Insurance Assigned Provider 06/16/24 documented as of this encounter Additional Source Comments The information contained in this document represents components of the legal health record. It is not the complete legal health record.[facility]
--- OUTSIDE RECORDS SUMMARY | 2025-01-10 14:36 | XMS_ITS | Encounter Summary ---
Author Organization [facility] Address [address] [place] [address] Phone Care Team Providers Care Head Librarian Name Role Phone Danilo Ann MD Primary Care Provider + [phone] Danilo Ann MD Unavailable [phone] BuffAmando camacho MD Unavailable [phone] Erickson Huitron MD Unavailable KeaganSukhdev guillen MD Unavailable [phone] Tavo Flores DO Primary Care Provider Danilo Ann MD Unavailable [phone] Tavo Flores DO Unavailable [phone] Encounter Details Date Type Department Care Team (Late st Contact Info) Description 12/12/2018 Procedure Pass [facility], [address] [address] Social History Tobacco Use Types Packs/Day Years [...] documented as of this encounter Care Teams Head Librarian Relationship Specialty Start Date End Date Danilo Ann MD [address] [address] [email or web address] PCP - General Internal Medicine 01/18/17 09/15/21 Tavo Flores DO [address] [place] [address], 2nd [place] [address] [email or web address] PCP - General Internal Medicine 09/16/21 Danilo Ann MD [address] [place] [address] [email or web address] Insurance Assigned Provider 10/14/17 03/15/22 Amando Kat MD [address] [place] [address] [address] [place] [address] Cardiology 04/17/20 Erickson Huitron MD [address] [place] [address] [address] [place] [address] Urology 04/17/20 [place] [address] Internal Medicine 04/26/21 Danilo Ann MD 90 [facility] [address] [place] [address] [email or web address] Insurance Assigned Provider 10/14/17 03/19/22 Tavo Flores DO [address] [place] [address], 2nd [place] [address] [email or web address] Insurance Assigned Provider 06/16/24 documented as of this encounter Additional Source Comments The information contained in this document represents components of the legal health record. It is not the complete legal health record.[facility]
--- OUTSIDE RECORDS SUMMARY | 2025-01-10 14:36 | XMS_ITS | Encounter Summary ---
Author Organization [facility] Address [address] [place] [address] Phone Care Team Providers Care Bead Builder Name Role Phone Danilo Ann MD Primary Care Provider + [phone] Danilo Ann MD Unavailable [phone] BuffAmando camacho MD Unavailable [phone] Erickson Huitron MD Unavailable [phone] Sukhdev Boogie MD Unavailable [phone] Tavo Flores DO Primary Care Provider Danilo Ann MD Unavailable [phone] Tavo Flores DO Unavailable [phone] Encounter Details Date Type Department Care Team (Latest Contact Info) Description 11/21/2017 Transcribe Orders [facility] [address] [place] [address] [id number] Erickson Huitron MD [address] [place] [address] [address] [place], [place] [phone] Uric acid nephrolithiasis (Primary Dx) Social History [...] EDT) TESTOSTERONE 123 72 - 623 ng/dL [facility] Blood 11/21/2017 9:41 AM EDT 11/21/2017 9:47 AM EDT us Erickson Huitron MD LAB BLOOD ORDERABLES Final Result [address] [address] * CBC (11/21/2017 9:41 AM EDT) WBC 6.49 3.40 - 11.20 K/uL [facility] RBC 4.90 4.50 - 5.50 M/uL [facility] HGB 15.2 13.0 - 17.0 g/dL [facility] HCT 46.1 40.0 - 51.0 % [facility] PLT 179 130 - 400 K/uL [facility] MCV 94.1 79.0 - 98.0 [facility] MCH 31.0 27.0 - 34.8 pg [facility] MCHC 33.0 31.5 - 36.0 g/dL [facility] RDW 13.1 10.8 - 14.6 % [facility] MPV 11.7 9.4 - 12.4 [facility] NRBC 0.00 /100 WBCs [facility] ABSOLUTE NRBC 0.00 K/uL [facility] Blood 11/21/2017 9:41 AM EDT 11/21/2017 9:47 AM EDT us Erickson Huitron MD LAB BLOOD ORDERABLES Final Result Performing Organization Address City/[facility]/ZIP Co de Phone Number [address] [address] * PSA (screening) (11/21/2017 9:41 AM EDT) PSA 1.95 0 - 4.00 ng/mL [facility] Blood 11/21/2017 9:41 AM EDT 11/21/2017 9:46 AM EDT us Erickson Huitron MD LAB BLOOD ORDERABLES Final Result [facility] [address] [place] [address] documented in this encounter Visit Diagnoses Diagnosis Uric acid nephrolithiasis- Primary documented in this encounter Additional Health Concerns Infection Onset Date Last Indicated Resolved Time CoV-Presumed 08/03/2021 08/03/2021 08/24/2021 1:21 AM EDT Assessment Noted Time PHQ-2 Depression Total Score: 2 06/02/19 17 4:40 PM EDT documented as of this encounter Care Teams Bead Builder Relationship Specialty Start Date End Date Danilo Ann MD [address] [address] [email or web address] PCP - General Internal Medicine 01/18/17 09/15/21 Tavo Flores DO [address] [place] [address], 2nd [place] [address] [email or web address] PCP - General Internal Medicine 09/16/21 Danilo Ann MD [address] [address] [email or web address] Insurance Assigned Provider 10/14/17 03/15/22 Amando Kat MD [address] [place] [address] [place] [address] Cardiology 04/17/20 Ericskon Huitron MD [address] [address] Urology 04/17/20 [place] [address] Internal Medicine 04/26/21 Danilo Ann MD [address] [place] [address] [email or web address] Insurance Assigned Provider 10/14/17 03/19/22 Tavo Flores DO [address] [place] [address], 2nd [place] [address] [email or web address] Insurance Assigned Provider 06/16/24 documented as of this encounter Additional Source Comments The information contained in this document represents components of the legal health record. It is not the complete legal health record.[facility]
--- OUTSIDE RECORDS SUMMARY | 2025-01-10 14:36 | XMS_ITS | Encounter Summary ---
Author Organization [facility] Address [address] [place] [address] [place] [address] Phone Care Team Providers Care Launch Leader Name Role Phone Danilo Ann MD Primary Care Provider + [phone] Danilo Ann MD Unavailable [phone] BuffAmando camacho MD Unavailable [phone] Erickson Huitron MD Unavailable Sukhdev Boogie MD Unavailable [phone] Tavo Flores DO Primary Care Provider Danilo Ann MD Unavailable [phone] Tavo Flores DO Unavailable [phone] Encounter Details Date Type Department Care Team (Late st Contact Info) Description 05/31/2018 Transcribe Orders [facility] [address] [place] [id number] Erickson Huitron MD [address] [place] [address] 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) [...] EDT) TESTOSTERONE 353 72 - 623 ng/dL [facility] Blood 05/31/2018 11:3 3 AM EDT 05/31/2018 11:40 AM EDT us Erickson Huitron MD LAB BLOOD ORDERABLES Final Result [address] [address] * CBC (05/31/2018 11:33 AM EDT) WBC 5.50 3.40 - 11.20 K/uL [facility] RBC 5.00 4.50 - 5.50 M/uL [facility] HGB 15.6 13.0 - 17.0 g/dL [facility] HCT 45.8 40.0 - 51.0 % [facility] PLT 202 130 - 400 K/uL [facility] MCV 91.6 79.0 - 98.0 [facility] MCH 31.2 27.0 - 34.8 pg [facility] MCHC 34.1 31.5 - 36.0 g/dL [facility] RDW 12.4 10.8 - 14.6 % [facility] MPV 11.9 9.4 - 12.4 [facility] NRBC 0.00 0.00 /100 WBCs [facility] ABSOLUTE NRBC 0.00 0.00 K/uL [facility] Blood 05/31/2018 11:3 3 AM EDT 05/31/2018 11:40 AM EDT us Erickson Huitron MD LAB BLOOD ORDERABLES Final Result [address] [place] [address] * PSA (screening) (05/31/2018 11:33 AM EDT) PSA 3.24 0 - 4.00 ng/mL [facility] Blood 05/31/2018 11:3 3 AM EDT 05/31/2018 11:41 AM EDT us Erickson Huitron MD LAB BLOOD ORDERABLES Final Result [address] [address] documented in this encounter Visit Diagnoses Diagnosis [...] documented as of this encounter Care Teams Launch Leader Relationship Specialty Start Date End Date Danilo Ann MD [address] [place] [address] [email or web address] [email or web address] PCP - General Internal Medicine 01/18/17 09/15/21 Tavo Flores DO [address] [place] [address], [address]nd [place] [address] [email or web address] PCP - General Internal Medicine 09/16/21 Danilo Ann MD [address] [place] [address] [email or web address] Insurance Assigned Provider 10/14/17 03/15/22 Amando Kta MD [address] [place] [address] [address] [place] [address] Cardiology 04/17/20 Erickson Huitron MD 100 [facility] [address] [place] [address] Urology 04/17/20 [place] [address] Internal Medicine 04/26/21 Danilo Ann MD [address] [place] [address] [address] [place] [address] [email or web address] Insurance Assigned Provider 10/14/17 03/19/22 Tavo Flores DO [address] [place] [address], [address] [place] [address] [email or web address] Insurance Assigned Provider 06/16/24 documented as of this encounter Additional Source Comments The information contained in this document represents components of the legal health record. It is not the complete legal health record.[facility]
--- OUTSIDE RECORDS SUMMARY | 2025-01-10 14:36 | XMS_ITS | Encounter Summary ---
Author Organization [facility] Address [address] [place] [address] Phone Care Team Providers Care Mailhouse Operator Name Role Phone Danilo Ann MD Primary Care Provider + [phone] Danilo Ann MD Unavailable [phone] BuffAmando camacho MD Unavailable [phone] Erickson Huitron MD Unavailable Sukhdev Boogie MD Unavailable +[phone] Tavo Flores DO Primary Care Provider Danilo Ann MD Unavailable [phone] Tavo Flores DO Unavailable [phone] Encounter Details Date Type Department Care Team (Late st Contact Info) Description 12/06/2018 Transcribe Orders [facility] [address] [place] [address] Erickson Huitron MD [address] [place] [address] 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0 79.0 - 98.0 fL [facility] MCH 32.9 27.0 - 34.8 pg [facility] MCHC 34.2 31.5 - 36.0 g/dL [facility] RDW 14.0 10.8 - 14.6 % [facility] MPV 11.1 9.4 - 12.4 fl [facility] NRBC 0.00 0.00 /100 WBCs [facility] ABSOLUTE NRBC 0.00 0.00 K/uL [facility] Blood 12/06/2018 10:3 7 AM EDT 12/06/2018 11:05 AM EDT us Erickson Huitron MD LAB BLOOD ORDERABLES Final Result [address] [address] * PSA (screening) (12/06/2018 10:37 AM EDT) PSA 2.70 0 - 4.00 ng/mL [facility] Blood 12/06/2018 10:3 7 AM EDT 12/06/2018 11:06 AM EDT us Erickson Huitron MD LAB BLOOD ORDERABLES Final Result Performing Organization Address City/[facility] Co de Phone Number [address] [address] documented in this encounter Visit Diagnoses Diagnosis [...] documented as of this encounter Care Teams Mailhouse Operator Relationship Specialty Start Date End Date Danilo Ann MD [address] [place] [address] [email or web address] PCP - General Internal Medicine 01/18/17 09/15/21 Tavo Flores DO [address] [place] [address], 2nd [place] [address] [email or web address] PCP - General Internal Medicine 09/16/21 Danilo Ann MD [address] [address] [email or web address] Insurance Assigned Provider 10/14/17 03/15/22 Amando Kat MD [address] [place] [address] [address] [place] [address] Cardiology 04/17/20 Erickson Huitron MD 100 [facility] [address] [place] [address] Urology 04/17/20 [place] [address] Internal Medicine 04/26/21 Danilo Ann MD 90 [facility] 101 [place] [address] [email or web address] Insurance Assigned Provider 10/14/17 03/19/22 Tavo Flores DO [address] [place] [address], 2nd [place] [address] [email or web address] Insurance Assigned Provider 06/16/24 documented as of this encounter Additional Source Comments The information contained in this document represents components of the legal health record. It is not the complete legal health record.[facility]
== END 2025-01-10 14:29 | disposition home or self-care (01) ==
LOC: HO.HUSH 13:38
PROVIDERS: PCP Pediatrics; Visit Provider Urology
DX: R39.15 Urgency of urination (principal)
CPT/HCPCS: 99024

== ENCOUNTER → 2025-01-10 13:37 | Outpatient (BNVA) | payer MEDICARE, OTHER, SELFPAY | PROVIDERS: PCP Pediatrics; Visit Provider Urology | DX: N40.1 Benign prostatic hyperplasia with lower urinary tract symptoms (principal); R39.15 Urgency of urination; N52.9 Male erectile dysfunction, unspecified | CPT/HCPCS: 51798; 99212 ==

== ENCOUNTER 2025-02-25 10:51 | Outpatient (AMB) | payer MEDICARE, OTHER, SELFPAY ==
--- OUTSIDE RECORDS SUMMARY | 2025-02-17 15:40 | XMS_ITS | Encounter Summary ---
Author Organization [facility] Address [address] [place] [address] Phone Care Team Providers Care Machine Stuffer Automatic Name Role Phone Amando Kat MD Unavailable [phone] Erickson Huitron MD Unavailable [phone] Sukhdev Boogie MD Unavailable [phone] Tavo Flores DO Primary Care Provider Tavo Flores DO Unavailable [phone] Reason for Visit * Reason Comments Fall Pt fell about 2.5 ho urs ago on the side walk declines head injury hurt right elbow which jammed into right side of ribs and also hurt right side of hip Encounter Details Date Type Department Care Team (Late st Contact Info) Description 02/17/2025 3:40 PM EST Office Visit [facility] at [address] [address] Nancy Del Rio FNP [address] [place] [id number] [email or web address] Contusion of right hip, initial encounter (Primary Dx); Fall, initial encounter; Rib contusion, right, initial encounter Social History Tobacco Use Types Packs/Day Years [...] PM EST documented as of this encounter Last Filed Vital Signs Vital Sign Reading Time Taken Comments Blood Pressure 129/89 02/17/2025 3:59 PM EST Pulse 61 02/17/2025 3:59 PM EST Temperature 36.2 C (97.1 F) 02/17/2025 3:59 PM EST Respiratory Rate 20 02/17/2025 3:59 PM EST Oxygen Saturation 98% 02/17/2025 3:59 PM EST Inhaled Oxygen Concentration - - Weight 73.2 kg (161 lb 6.4 oz) 02/17/2025 3:59 P M EST Height 175.3 cm (5' 9 ) 02/17/2025 3:59 PM EST Body Mass Index 23.83 02/17/2025 3:59 PM EST documented in this encounter Patient Instructions * Patient Instructions* Nancy Del Rio FNP - 02/17/2025 3:40 PM EST REST COUGH AND DEEP BREATH EVERY HOUR ICE FOR 24HRS THEN WARM COMPRESSES 6-8 X A DAY FOR 20 MINUTES. TYLENOL OTC LIDOCAINE OR ICY HOT PATCHES * Attachments The following attachments cannot be sent through Care Everywhere. * Rib Contusion (Faroese) * Hip Pain (Faroese) * Contusion (Faroese) documented in this encounter Progress Notes * Nancy Del Rio FNP - 02/17/2025 3:40 PM EST Images from the original note were not included. Subjective: Patient ID: Brett Conde is a 74 y.o. male. Pt states he tripped 2.5 hrs ago on pavement injuring his right ribs and right hip. Pain 10/20 Review of Systems Constitutional: Negative for fatigue and fever. HENT: Negative for congestion, ear pain and sore throat. Eyes: Negative for pain. Respiratory: Negative for cough and shortness of breath. Right rib pain Cardiovascular: Negative for chest pain. Gastrointestinal: Negative for abdominal pain, constipation, diarrhea, nausea and vomiting. Genitourinary: Negative for dysuria and flank pain. Neurological: Negative for dizziness, light-headedness and headaches. Hematological: Negative for adenopathy. All other systems reviewed and are negative. Skin: Negative for color change. Musculoskeletal: Positive for joint pain (right hip pain). Negative for back pain and neck pain. Vitals: 02/17/25 1559 BP: 129/89 Pulse: 61 Resp: 20 Temp: 36.2 ??C (97.1 ??F) SpO2: 98% Weight: 73.2 kg (161 lb 6.4 oz) Height: 175.3 cm (5' 9 ) Objective: Physical Exam Vitals and nursing note reviewed. Constitutional: General: He is not in acute distress. Appearance: Normal appearance. He is not ill-appearing, toxic-appearing or diaphoretic. HENT: Head: Normocephalic and atraumatic. Nose: Nose normal. Mouth/Throat: Mouth: Mucous membranes are moist. Pharynx: Oropharynx is clear. Eyes: Extraocular Movements: Extraocular movements intact. Conjunctiva/sclera: Conjunctivae normal. Pupils: Pupils are equal, round, and reactive to light. Cardiovascular: Rate and Rhythm: Normal rate and regular rhythm. Pulses: Normal pulses. Heart sounds: Normal heart sounds. Pulmonary: Effort: Pulmonary effort is normal. No respiratory distress. Breath sounds: Normal breath sounds. No stridor. No wheezing, rhonchi or rales. Comments: Tender right lateral ribs Chest: Chest wall: No tenderness. Abdominal: General: Abdomen is flat. Musculoskeletal: General: Tenderness (right hip and groin) present. No swelling or deformity. Normal range of motion. Cervical back: Normal range of motion and neck supple. Right lower leg: No edema. Comments: Walking w mild limp and no difficulty Skin: General: Skin is warm and dry. Findings: No bruising, erythema or rash. Neurological: General: No focal deficit present. Mental Status: He is alert and oriented to person, place, and time. Mental status is at baseline. Psychiatric: Mood and Affect: Mood normal. Behavior: Behavior normal. Thought Content: Thought content normal. Judgment: Judgment normal. No results found for this visit on 02/17/25. Procedure: Procedures Assessment/Plan: Diagnosis Plan 1. Contusion of right hip, initial encounter 2. Fall, initial encounter XR Hip with Pelvis (Right) XR Ribs (Right) 3. 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 Complain of 8/10 pain of right ribs and right hip. Pt offered he is on eliquis and did not hit his head. Right hip xray viewed and interpreted by me as negative acute Right rib xray viewed and interpreted by me as negative acute. Rad reads indeterminate age 9th rib fx. Pt has had old fractures Call to pt with rad reading Pt advised if any abnormal bleeding, pain, swelling from fall and on eliquis - go to ED. Discussed and agreed on pharm and non pharm plan of care. Recheck if worsening or no better * Israel Cline MD - 02/17/2025 3:40 PM EST Subject Line: Provider Attestation I have reviewed the notes, assessments, and/or procedures performed by TONY Ma, I concur with her/his documentation of Brett Conde. documented in this encounter Plan of Treatment Not on file documented as of this encounter Procedures Procedure Name Priority Date/Time Associated Diagnosis Comments XR HIP 2 VW RIGHT PLUS PELVIS Urgent/patient waiting 02/17/2025 4:22 PM EST Fall, initial encounter XR RIBS 3 OR MORE VIEWS WITH PA CHEST (RIGHT) Urgent/patient waiting 02/17/2025 4:22 PM EST Fall, initial encounter documented in this encounter Results * XR HIP 2 VW RIGHT PLUS PELVIS (02/17/2025 4:22 PM EST) Anatomical Region Laterality Modality Hip, Pelvis Computed Radiogr aphy 02/17/2025 5:42 PM EST Impressions 02/17/2025 5:43 PM EST 1. No displaced fracture or dislocation. 2. Right total hip arthroplasty, no complication. Narrative 02/17/2025 5:43 PM EST XR HIP 2 VW RIGHT PLUS PELVIS Referring clinician's provided indication for this examination in Epic: S/P Fall; states tripped on pavement, pain right lateral ribs and right hip and groin. hx hip replacement COMPARISON: None FINDINGS: Pelvis: No displaced fracture. Intact sacroiliac joints and pubic symphysis. Left total hip arthroplasty in anatomic alignment on frontal view. Multiple surgical clips project over the lower abdomen. Surgical chain suture projects over the right hemipelvis. Degenerative changes of the imaged lumbar spine. Right hip: Total hip arthroplasty. Hardware is intact and in anatomic position. No periprosthetic lucency or asymmetric liner wear. No periprosthetic fracture. Procedure Note Yenny Castro MD - 02/17/2025 XR HIP 2 VW RIGHT PLUS PELVIS Referring clinician's provided indication for this examination in Epic:S/P Fall; states tripped on pavement, pain right lateral ribs and righthip and groin. hx hip replacement COMPARISON: None FINDINGS: Pelvis: No displaced fracture. Intact sacroiliac joints and pubicsymphysis. Left total hip arthroplasty in anatomic alignment on frontalview. Multiple surgical clips project over the lower abdomen. Surgicalchain suture projects over the right hemipelvis. Degenerative changes ofthe imaged lumbar spine. Right hip: Total hip arthroplasty. Hardware is intact and in anatomicposition. No periprosthetic lucency or asymmetric liner wear. Noperiprosthetic fracture. IMPRESSION: 1. No displaced fracture or dislocation. 2. Right total hip arthroplasty, no complication. Nancy Del Rio GAS SYSTEMS WORKER IMG XR PELVIS Final Resul t * XR RIBS 3 OR MORE VIEWS WITH PA CHEST (RIGHT) (02/17/2025 4:22 PM EST) Anatomical Region Laterality Modality Chest Computed Radiogr aphy 02/17/2025 5:39 PM EST Impressions 02/17/2025 5:50 PM EST Mild contour abnormality involving the anterolateral right ninth rib, age-indeterminate fracture. Correlate with point tenderness. No acute pulmonary process. Narrative 02/17/2025 5:50 PM EST XR RIBS 3 OR MORE VIEWS WITH PA CHEST (RIGHT) Referring clinician's provided indication for this examination in [facility]: S/P Fall; states tripped on pavement, pain right lateral ribs and right hip and groin. hx hip replacement COMPARISON: 05/17/2019 FINDINGS: Minimally displaced fracture involving the anterolateral right ninth rib, age indeterminate. Old, healed fractures involving the posterolateral right sixth and seventh ribs. PA evaluation of the chest demonstrates no focal consolidation, pleural effusion, pulmonary edema, or pneumothorax. Cardiomediastinal silhouette is normal. Partially visualized right shoulder arthroplasty. Procedure Note Tom Canales MBBS - 02/17/2025 XR RIBS 3 OR MORE VIEWS WITH PA CHEST (RIGHT) Referring clinician's provided indication for this examination in [facility]:S/P Fall; states tripped on pavement, pain right lateral ribs and righthip and groin. hx hip replacement COMPARISON: 05/17/2019 FINDINGS: Minimally displaced fracture involving the anterolateral right ninth rib,age indeterminate. Old, healed fractures involving the posterolateralright sixth and seventh ribs. PA evaluation of the chest demonstrates no focal consolidation, pleuraleffusion, pulmonary edema, or pneumothorax. Cardiomediastinal silhouetteis normal. Partially visualized right shoulder arthroplasty. IMPRESSION: Mild contour abnormality involving the anterolateral right ninth rib,age-indeterminate fracture. Correlate with point tenderness. No acute pulmonary process. Nancy Del Rio GAS SYSTEMS WORKER IMG XR CHEST Final Resul t documented in this encounter Visit Diagnoses Diagnosis Contusion of right hip, initial encounter- Primary Fall, initial encounter Rib contusion, right, initial encounter documented in this encounter Additional Health Concerns Assessment Noted Time PHQ-9 Depression Total Score: 3 03/26/19 19 10:48 AM EST PHQ-2 Depression Total Score: 0 05/20/19 23 9:02 AM EST documented as of this encounter Care Teams Machine Stuffer Automatic Relationship Specialty Start Date End Date Tavo Flores DO [address] [place] [id number] PCP - General Internal Medicine 09/16/21 Amando Kat MD [address] [place] [address] [phone] Cardiology 04/17/20 Erickson Huitron MD [address] [place] [address] Urology 04/17/20 [place] [address] Internal Medicine 04/26/21 Tavo Flores DO [address] [place] [address] [email or web address] Insurance Assigned Provider 06/16/24 documented as of this encounter Additional Source Comments The information contained in this document represents components of the legal health record. It is not the complete legal health record.[facility]
--- OUTSIDE RECORDS SUMMARY | 2025-02-17 16:07 | XMS_ITS | Encounter Summary ---
Author Organization [facility] Address [address] [place] [address] Phone Care Team Providers Care Employment Training Specialist Name Role Phone Amando Kat MD Unavailable [phone] Erickson Huitron MD Unavailable Sukhdev Boogie MD Unavailable [phone] Tavo Flores DO Primary Care Provider Tavo Flores DO Unavailable [phone] Encounter Details Date Type Department Care Team (Late st Contact Info) Description 02/17/2025 4:07 PM EST Hospital Encounter [facility] [address] [place] [address] Nancy Del Rio FNP [address] [place] [address] [email or web address] Social History Tobacco Use Types Packs/Day Years [...] hip arthroplasty, no complication. Nancy Del Rio RESIDENTIAL COORDINATOR IMG XR PELVIS Final Resul t documented in this encounter Visit Diagnoses Not on filedocumented in this encounter Additional Health Concerns Assessment Noted Time PHQ-9 Depression Total Score: 3 03/26/19 19 10:48 AM EST PHQ-2 Depression Total Score: 0 05/20/19 23 9:02 AM EST documented as of this encounter Care Teams Employment Training Specialist Relationship Specialty Start Date End Date Tavo Flores DO [address] [place] [address], [address] [place] [address] [email or web address] PCP - General Internal Medicine 09/16/21 Amando Kat MD [address] [place] [address] Dr Valadez [address] [place] [phone] Cardiology 04/17/20 Erickson Huitron MD [address] [place] [phone] Urology 04/17/20 [place] [address] Internal Medicine 04/26/21 Tavo Flores DO [address] [place] [address], [address] [place] [address] [email or web address] Insurance Assigned Provider 06/16/24 documented as of this encounter Additional Source Comments The information contained in this document represents components of the legal health record. It is not the complete legal health record.[facility]
--- OUTSIDE RECORDS SUMMARY | 2025-02-17 16:07 | XMS_ITS | Encounter Summary ---
Author Organization [facility] Address [address] [place] [address] Phone Care Team Providers Care Dehydration Unit Operator Name Role Phone Amando Kat MD Unavailable [phone] Erickson Huitron MD Unavailable Sukhdev Boogie MD Unavailable [phone] Tavo Flores DO Primary Care Provider Tavo Flores DO Unavailable [phone] Encounter Details Date Type Department Care Team (Late st Contact Info) Description 02/17/2025 4:07 PM EST Hospital Encounter [facility] [address] [place] [address] Nancy Del Rio FNP [address] [place] [address] [email or web address] Social History Tobacco Use Types Packs/Day [...] Name Priority Date/Time Associated Diagnosis Comments XR RIBS 3 OR MORE VIEWS WITH PA CHEST (RIGHT) Urgent/patient waiting 02/17/2025 4:22 PM EST Fall, initial encounter documented in this encounter Results * XR RIBS 3 OR MORE VIEWS [...] No acute pulmonary process. Nancy Del Rio AUTOMATION CONSULTANT IMG XR CHEST Final Resul t documented in this encounter Visit Diagnoses Not on filedocumented in this encounter Additional Health Concerns Assessment Noted Time PHQ-9 Depression Total Score: 3 03/26/19 19 10:48 AM EST PHQ-2 Depression Total Score: 0 05/20/19 23 9:02 AM EST documented as of this encounter Care Teams Dehydration Unit Operator Relationship Specialty Start Date End Date Tavo Flores DO [address] [place] [address], [address] [place] [address] PCP - General Internal Medicine 09/16/21 Amando Kat MD [address] [place] [address] Dr Valadez [address] [place] [phone] Cardiology 04/17/20 Erickson Huitron MD [address] [place] [address] Urology 04/17/20 [place] [address] Internal Medicine 04/26/21 Tavo Flores DO [address] [place] [address], [address] [place] [address] [email or web address] Insurance Assigned Provider 06/16/24 documented as of this encounter Additional Source Comments The information contained in this document represents components of the legal health record. It is not the complete legal health record.[facility]
--- NOTE | 2025-02-25 10:56 | A.OFFVIS_ITS ---
Intake Visit Reasons: Urgency/Incontinence Concerns/PVR(set) UA Intake Note: Patient is present for Green light follow up Urology Medication:TADALAFIL,Vibegron Antibiotic Allergy:NONE Blood Thinner:APIXABAN Imaging done 10/07/24 ( ultrasound ) PVR: 111 mls Labs done 01/02/25 PSA 1.39, Total testosterone 274 Green laser Procedure 12/02/24 Card Reader Required: No Accompanied by: Self / Same As Patient Allergies tamsulosin Allergy (Unknown, Verified 02/25/25 10:57) Unknown HPI Comments Details: Brett is a pleasant male. He is a patient of Dr. Flores. He is seen for the following urologic condition. - hypogonadism - lower urinary tract symptoms - erectile dysfunction Three-month from GreenLight laser Has developed overactive bladder Partial response to Gemtesa Add festoridine Discussed possible Botox Three-month follow-up 70 g prostate on imaging Continues with use of testosterone gel and daily tadalafil plus terazosin Last cardiac evaluation showed 35% EF in setting of cardiac amyloid PSA 01/04 1.4 May stop finasteride and terazosin Discussed addition of overactive bladder med for urgency frequency in the next 2 months Repeat testosterone three-month Hypogonadism: Baseline uses 2 pumps of AndroGel Prior diagnosis of amyloidosis involving his heart He presents today for further evaluation and followup of his hypogonadism. Initial symptoms include decreased libido Yes in muscle size/strength Yes increased fatigue/malaise Yes The onset of symptoms has been gradual Laboratory results followup 09/24 , testosterone 426, , PSA 1.5, , Hct 43 09/25 , testosterone 181, 04/29 - T 544, 10/27 - T 360, PSA 2.2, 10/28 - T 124, PSA 2.0 11/29 845 Hct 48 PSA 2.7, 12/30 T 460 PSA 3.4, 07/01 T 577, PSA 4.0, 07/02 T 1111 PSA 4.3 45.2. 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 Atrial fibrillation Shingles Erectile dysfunction Colonic polyp Hypogonadism in male OA (osteoarthritis) BPH (benign prostatic hyperplasia) Bilateral nephrolithiasis Surgical History (Updated 02/17/25 @ 08:32 by JACIEL Martinez) History of surgery Social History Patient Tobacco Use Status: Never used Tobacco Office Procedures Post Void Residual Post Residual Void Post Void Residual (PVR): 111 [id number] Void Residual by ultrasound Results AMB Urinalysis, Automated UA Leukoctes 0 Jcarlos/uL Last Edit by Neela Contreras [facility] on 02/25/25 11:18 UA Nitrite Negative Last Edit by Neela Contreras [facility] on 02/25/25 11:18 UA Urobilinogen 0.2 mg/dL Last Edit by Neela Contreras [facility] on 02/25/25 11:18 UA Protein 0 mg/dL Last Edit by Neela Contreras [facility] on 02/25/25 11:18 UA pH 6.0 Last Edit by Neela Contreras [facility] on 02/25/25 11:18 UA Blood 25 Cruz/uL Last Edit by Neela Contreras [facility] on 02/25/25 11:18 UA Specific [place] 1.010 Last Edit by Neela Contreras [facility] on 02/25/25 11:1 8 UA Ketone Negative Last Edit by Neela Contreras [facility] on 02/25/25 11:18 UA Bilirubin 0 mg/dL Last Edit by Neela Contreras [facility] on 02/25/25 11:18 UA Glucose 0 mg/dL Last Edit by Neela Contreras [facility] on 02/25/25 11:18 Results Reviewed Results Reviewed: Laboratory Last Values Urine pH (Auto) 6.0 02/25/25 11:17 Specific [place] (Auto) 1.010 02/25/25 11:17 Urine Protein (Auto) 0 mg/dL 02/25/25 11:17 Glucose (UA)(Auto) 0 mg/dL 02/25/25 11:17 Urine Ketones (Auto) Negative 02/25/25 11:17 Urine Blood (Auto) 25 Cruz/uL 02/25/25 11:17 Urine Nitrite (Auto) Negative 02/25/25 11:17 Urine Bilirubin (Auto) 0 mg/dL 02/25/25 11:17 Urine Urobilinogen (Auto) 0.2 mg/dL 02/25/25 11:17 Leukocyte Esterase (Auto) 0 Jcarlos/uL 02/25/25 11:17 Assessment & Plan Assessment & Plan (1) Overactive bladder: Code(s): N32.81 - Overactive bladder Category: Medical (2) BPH (benign prostatic hyperplasia): Code(s): N40.0 - Benign prostatic hyperplasia without lower urinary tract symptoms Category: Medical (3) Urinary urgency: Code(s): R39.15 - Urgency of urination Category: Medical Orders: Orders AMB Urinalysis Automated Today N13.8 - Other obstructive and reflux uropathy, N40.1 - Benign prostatic hyperplasia with lower urinary tract symptoms AMB Post Void Residual by ultrasound Today N40.1 - Benign prostatic hyperplasia with lower urinary tract symptoms Medications: New fesoterodine ER 4 mg PO DAILY 30 tabs 2RF 30 days N32.81 - Overactive bladder Refilled vibegron 75 mg PO DAILY 30 tabs 2RF 30 days R39.15 - Urgency of urination Coding Diagnoses Overactive bladder N32.81 BPH (benign prostatic hyperplasia) N40.0 Urinary urgency R39.15 CPT Codes Post Residual Void - PVR CPT Code: 06119-Yzzg Void Residual by ultrasound ([id number])
--- OUTSIDE RECORDS SUMMARY | 2025-02-25 14:04 | XMS_ITS | Encounter Summary ---
Author Organization [facility] Address [address] [place] [address] [place] [address] Phone Care Team Providers Care Charter Pilot Name Role Phone Danilo Ann MD Primary Care Provider + [phone] Danilo Ann MD Unavailable [phone] Amando Kat MD Unavailable [phone] Erickson Huitron MD Unavailable [phone] Sukhdev Boogie MD Unavailable [phone] Tavo Flores DO Primary Care Provider Danilo Ann MD Unavailable [phone] Tavo Flores DO Unavailable [phone] Encounter Details Date Type Department Care Team (Latest Contact Info) Description 11/21/2017 Transcribe Orders [address] [address] Erickson Huitron MD [address] [place] [address] [address] [place] [address] Uric acid nephrolithiasis (Primary Dx) Social History [...] EDT) TESTOSTERONE 123 72 - 623 ng/dL [facility] Blood 11/21/2017 9:41 AM EDT 11/21/2017 9:47 AM EDT us Erickson Huitron MD LAB BLOOD BKR ORDERAB LES Final Result [address] [address] * CBC (11/21/2017 9:41 AM EDT) WBC 6.49 3.40 - 11.20 K/uL [facility] RBC 4.90 4.50 - 5.50 M/uL [facility] HGB 15.2 13.0 - 17.0 g/dL [facility] HCT 46.1 40.0 - 51.0 % [facility] PLT 179 130 - 400 K/uL [facility] MCV 94.1 79.0 - 98.0 [facility] MCH 31.0 27.0 - 34.8 pg [facility] MCHC 33.0 31.5 - 36.0 g/dL [facility] RDW 13.1 10.8 - 14.6 % [facility] MPV 11.7 9.4 - 12.4 [facility] NRBC 0.00 /100 WBCs [facility] ABSOLUTE NRBC 0.00 K/uL [facility] Blood 11/21/2017 9:41 AM EDT 11/21/2017 9:47 AM EDT us Erickson Huitron MD LAB BLOOD BKR ORDERAB LES Final Result [address] [address] * PSA (screening) (11/21/2017 9:41 AM EDT) PSA 1.95 0 - 4.00 ng/mL [facility] Blood 11/21/2017 9:41 AM EDT 11/21/2017 9:46 AM EDT us Erickson Huitron MD LAB BLOOD BKR ORDERAB LES Final Result [facility] [address] [place] [address] documented in this encounter Visit Diagnoses Diagnosis Uric acid nephrolithiasis- Primary documented in this encounter Additional Health Concerns Infection Onset Date Last Indicated Resolved Time CoV-Presumed 08/03/2021 08/03/2021 08/24/2021 1:21 AM EDT Assessment Noted Time PHQ-2 Depression Total Score: 2 06/02/19 17 4:40 PM EDT documented as of this encounter Care Teams Charter Pilot Relationship Specialty Start Date End Date Danilo Ann MD [address] [address] [email or web address] PCP - General Internal Medicine 01/18/17 09/15/21 Tavo Flores DO [address] [place] [address], 2nd [place] [address] [email or web address] PCP - General Internal Medicine 09/16/21 Danilo Ann MD [address] [address] [email or web address] Insurance Assigned Provider 10/14/17 03/15/22 Amando Kat MD [address] [place] [address] Dr Valadez [address] [place] [phone] Cardiology 04/17/20 Erickson Huitron MD [address] [address] Urology 04/17/20 [place] [address] Internal Medicine 04/26/21 Danilo Ann MD [address] [place] [address] [email or web address] Insurance Assigned Provider 10/14/17 03/19/22 Tavo Flores DO [address] [place] [address], 2[address] [place] [address] [email or web address] Insurance Assigned Provider 06/16/24 documented as of this encounter Additional Source Comments The information contained in this document represents components of the legal health record. It is not the complete legal health record.[facility]
--- OUTSIDE RECORDS SUMMARY | 2025-02-25 14:04 | XMS_ITS | Encounter Summary ---
Author Organization [facility] Address [address] [place] [address] Phone Care Team Providers Care Bench Mover Name Role Phone Unknown, Unknown Primary Care Provider Danilo Holly MD Primary Care Provider + [phone] Danilo Ann MD Unavailable [phone] Amando Kat MD Unavailable [phone] Erickson Huitron MD Unavailable Sukhdev Boogie MD Unavailable [phone] Tavo Flores DO Primary Care Provider Danilo Ann MD Unavailable [phone] Tavo Flores DO Unavailable [phone] Encounter Details Date Type Department Care Team (Late st Contact Info) Description 01/19/2016 Procedure Pass [facility], [address] [address] Social History Tobacco Use Types Packs/Day Years [...] documented as of this encounter Care Teams Bench Mover Relationship Specialty Start Date End Date Unknown, Unknown, MD PCP - General 01/01/16 01/17/17 Danilo Ann MD [address] [address] [email or web address] PCP - General Internal Medicine 01/18/17 09/15/21 Tavo Flores DO [address] [place] [address], 2nd [place] [address] [email or web address] PCP - General Internal Medicine 09/16/21 Danilo Ann MD [address] [address] [email or web address] Insurance Assigned Provider 10/14/17 03/15/22 Amando Kat MD [address] [place] [phone] Cardiology 04/17/20 Erickson Huitron MD [address] [place] [address] Urology 04/17/20 [place] [address] Internal Medicine 04/26/21 Danilo Ann MD [address] [place] [address] [email or web address] Insurance Assigned Provider 10/14/17 03/19/22 Tavo Flores DO [address] [place] [address], 2nd [place] [address] [email or web address] Insurance Assigned Provider 06/16/24 documented as of this encounter Additional Source Comments The information contained in this document represents components of the legal health record. It is not the complete legal health record.[facility]
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
--- OUTSIDE RECORDS SUMMARY | 2025-02-25 14:04 | XMS_ITS | Encounter Summary ---
Author Organization [facility] Address [address] [place] [address] Phone Care Team Providers Care Material Engineer Name Role Phone Unknown, Unknown Primary Care Provider Danilo Holly MD Primary Care Provider [phone] Danilo Ann MD Unavailable [phone] Amando Kat MD Unavailable [phone] Erickson Huitron MD Unavailable Sukhdev Boogie MD Unavailable [phone] Tavo Flores DO Primary Care Provider Danilo Ann MD Unavailable [phone] Tavo Flores DO Unavailable [phone] Encounter Details Date Type Department Care Team (Latest Contact Info) Description 01/18/2016 Transcribe Orders [facility] [address] [address] Asia Burt MD, PhD [address] [place] [address] [email or web address] SNHL (sensory-neural hearing loss), asymmetrical [...] documented as of this encounter Care Teams Material Engineer Relationship Specialty Start Date End Date Unknown, Unknown, MD PCP - General 01/01/16 01/17/17 Danilo Ann MD [address] [place] [address] [email or web address] PCP - General Internal Medicine 01/18/17 09/15/21 Tavo Flores DO [address] [place] [address], 2nd [place] [address] [email or web address] PCP - General Internal Medicine 09/16/21 Danilo Ann MD [address] [place] [address] [email or web address] Insurance Assigned Provider 10/14/17 03/15/22 Amando Kat MD [address] [place] [address] Dr Valadez [address] [place] [phone] Cardiology 04/17/20 Erickson Huitron MD [address] [place] [address] Urology 04/17/20 [place] [address] Internal Medicine 04/26/21 Danilo Ann MD [address] [place] [address] [email or web address] Insurance Assigned Provider 10/14/17 03/19/22 Tavo Flores DO [address] [place] [address], 2nd [place] [address] [email or web address] Insurance Assigned Provider 06/16/24 documented as of this encounter Additional Source Comments The information contained in this document represents components of the legal health record. It is not the complete legal health record.[facility]
--- OUTSIDE RECORDS SUMMARY | 2025-02-25 14:04 | XMS_ITS | Encounter Summary ---
Author Organization [facility] Address [address] [place] [address] Phone Care Team Providers Care Digital Publishing Specialist Name Role Phone Danilo Ann MD Primary Care Provider + [phone] Danilo Ann MD Unavailable [phone] BuffAmando camacho MD Unavailable [phone] Erickson Huitron MD Unavailable KeaganSukhdev guillen MD Unavailable [phone] Tavo Flores DO Primary Care Provider Danilo Ann MD Unavailable [phone] Tavo Flores DO Unavailable [phone] Encounter Details Date Type Department Care Team (Late st Contact Info) Description 04/04/2017 Ancillary [facility] [address] [place] [address] Amando Knight DO [address] [address] [email or web address] Social History Tobacco Use Types Packs/Day Years [...] documented as of this encounter Care Teams Digital Publishing Specialist Relationship Specialty Start Date End Date Danilo Ann MD [address] [address] [email or web address] PCP - General Internal Medicine 01/18/17 09/15/21 Tavo Flores DO [address] [place] [address], 2nd [place] [address] [email or web address] PCP - General Internal Medicine 09/16/21 Danilo Ann MD [address] [place] [address] [email or web address] Insurance Assigned Provider 10/14/17 03/15/22 Amando Kat MD [address] [place] [phone] Cardiology 04/17/20 Erickson Huitron MD [address] [place] [address] Urology 04/17/20 [place] [address] Internal Medicine 04/26/21 Danilo Ann MD [address] [place] [address] [email or web address] Insurance Assigned Provider 10/14/17 03/19/22 Tavo Flores DO [address] [place] [address], 2[address] [place] [address] [email or web address] Insurance Assigned Provider 06/16/24 documented as of this encounter Additional Source Comments The information contained in this document represents components of the legal health record. It is not the complete legal health record.[facility]
--- OUTSIDE RECORDS SUMMARY | 2025-02-25 14:04 | XMS_ITS | Clinical Summary ---
Author Organization [facility] Constant Contact Address [address] [place] [address] Phone Care Team Providers Care Cattle Killer Name Role Phone Unavailable Primary Care Provider [...] Do not crush, chew, or split. Active irbesartan (AVAPRO) 75 mg tabletIndications :Essential (primary) hypertension TAKE 1 TABLET BY MOUTH EVERY DAY 90 tablet 1 5 Active torsemide (DEMADEX) 10 mg tablet Take 1 tablet (10 mg total) by mouth 1 (one) time each day. 90 tablet 1 5 Active Active Problems [...] therapy which he has already done at [facility], spinal cord stimulator and the Intracept procedure. [...] discuss injections and the Intracept procedure at [facility] and he was given a brochure on it. Before considering any intervention, I am going to send him for new lumbar spine MRI since his pain has worsened and the previous study is 2 years old. In the interim, he will continue using marijuana and walking 1 to 2 miles per day as tolerated. 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 Boogie at [facility] for history of wild-type ATTR amyloidosis. His condition appears to be stable and he appears euvolemic at this time. He will continue on tafamidis and furosemide as prescribed. Stage 3 chronic kidney disease 06/03/2020 Hyperlipidemia 06/02/2020 Assessment & Plan (11/14/2024 11:56 AM EDT): Lipids are monitored by his primary care provider. 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 He is being treated with tafamidis. His symptoms remain stable. No changes at this time. Assessment & Plan (07/24/2024 3:45 PM EDT): Patient with a amyloid myopathy. Followed at the amyloid clinic [facility]. Patient with no chest pain pressure shortness of breath. No syncope presyncope or palpitations. Patient's echocardiograms are followed in [place] were not can repeat them locally. He seems to be very well covered from a euvolemic standpoint I am not going to change medical management at this time. Atrial fibrillation 02/14/2020 Assessment & Plan (11/14/2024 11:56 AM [...] and permanent pacemaker placement. He has a [id number] score of 4 and continues on Eliquis [...] as prescribed. 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 Resolved Problems Problem Noted Date Diagnosed Date Resolved Date Abnormal blood level of uric acid 01/19/2021 11/14/2024 Elevated BP without diagnosis of hypertension 08/22/1911/14/2024 Functional weakness 06/13/2019 11/15/19 25 Adjustment reaction 09/24/2018 11/15/19 25 Night sweats 01/29/2018 11/14/2024 Serum albumin decreased 01/29/201806/2024 Encounters Date Type Department Care Team Description 12/19/2024 Telephone [facility] [address] [place] [address] [address] [place] [address] Amando Kat MD 12/17/[address] [place] [address] Amando Kat MD 12/16/2024 Telephone [facility] [address] [place] [address] [address] [place] [address] Amando Kat MD 12/04/2024 Telephone [facility] [address] [place] [address] [place] [phone] Amando Kat MD from Last 3 Months [...] Date Site/Laterality Comments TOTAL KNEE ARTHROPLASTY PROCEDURE: [place] ARTHRP KNE CONDYLE&PLATU MEDIAL&LAT COMPARTMENTS OTHER SURGICAL HISTORY PROCEDURE: [place] ARTHRP ACETBLR/PROX FEM PROSTC AGRFT/ALGRFT SHOULDER SURGERY Right PROCEDURE: HISTORICAL SHOULDER SURGERY BACK SURGERY 01/22/2019 PROCEDURE: HISTORICAL BACK SURGERY; COMMENT: L2-3 L3-4 decomp Medical History Medical History Date Comments A-fib ([facility] V24, [facility] V28) DX:A-fib ([facility]) Amyloidosis ([facility] V24, [facility] V28) DX:Amyloidosis ([facility]) Sensorineural hearing loss DX:[place] nsorineural hearing loss [...] on file Sexual Orientation Not on file Last Filed Vital Signs [...] Health Maintenance Due Date Last Done Comments Drug Screen 1950 Non-Opioid Controlled Substance Agreement 1950 Zoster Vaccines (1 of 2) 05/18/2011 03/23/2011 Cholesterol Screening (Lipid Panel) 02/13/2022 Falls Risk Assessment 02/13/2022 Social Influencers of Health Screening 02/13/2022 Medicare Annual Wellness Visit 05/20/2023 05/19/2022 RSV Immunization Adult Patients (1 - 1-dose 75+ series) 07/16/2023 Hypertension/CHF/CAD Annual BMP Blood Test 02/07/2024 02/06/2023, 04/30/2021, 04/28/2021, Additional history exists Depression Screening 03/13/2024 COVID-19 Vaccine ( season) 2024 01/03/2024, 01/12/2022, 01/06/2021, Additional [...] Results * Annual BMP Blood Test (02/06/2023) [facility] [place] [facility] Annual BMP Blood Test abstracted us Historical Provider HEALTH MAINTENANCE Final Result from Last 3 Months or Most Recently Relevant to Health Maintenance Insurance MEDICARE [facility]
--- OUTSIDE RECORDS SUMMARY | 2025-02-25 14:04 | XMS_ITS | Encounter Summary ---
Author Organization [facility] Address [address] [place] [address] Phone Care Team Providers Care Home Visit Field Care Manager Name Role Phone Amando Kat MD Unavailable [phone] Erickson Huitron MD Unavailable Sukhdev Boogie MD Unavailable [phone] Tavo Flores DO Primary Care Provider Tavo Flores DO Unavailable [phone] Encounter Details Date Type Department Care Team (Late st Contact Info) Description 06/03/2024 Procedure Pass [facility], [address] [address] Social History Tobacco Use Types Packs/Day Years [...] documented as of this encounter Care Teams Home Visit Field Care Manager Relationship Specialty Start Date End Date Tavo Flores DO [address] [place] [address] PCP - General Internal Medicine 09/16/21 Amando Kat MD [address] [place] [address] Dr Valadez [address] [place] [phone] Cardiology 04/17/20 Erickson Huitron MD [address] [place] [address] Urology 04/17/20 [place] [address] Internal Medicine 04/26/21 Tavo Flores DO [address] [place] [address] [email or web address] Insurance Assigned Provider 06/16/24 documented as of this encounter Additional Source Comments The information contained in this document represents components of the legal health record. It is not the complete legal health record.[facility]
--- OUTSIDE RECORDS SUMMARY | 2025-02-25 14:04 | XMS_ITS | Encounter Summary ---
Author Organization [facility] Address [address] [place] [address] Phone Care Team Providers Care Shipping Helper Name Role Phone Amando Kat MD Unavailable [phone] Erickson Huitron MD Unavailable Sukhdev Boogie MD Unavailable [phone] Tavo Flores DO Primary Care Provider Tavo Flores DO Unavailable [phone] Reason for Referral * MRI/CAT Scan - Closed Specialty Diagnoses / Procedures Referred By Nevaeh taylor Referred To Contact Radiology Diagnoses Low back pain, unspecified back pain laterality, unspecified chronicity, unspecified whether sciatica present Spinal stenosis of lumbar region, unspecified whether neurogenic claudication present Procedures MRI Lumbar Spine Paola Arizmendi MD [address] [place] [address] Phone: tel: fax: Referral ID Status Reason Start Date Expiration Date Visits Re quested Visits Authorized [id number] Closed 06/03/2024 06/03/2025 1 1 Encounter Details Date Type Department Care Team (Latest Contact Info) Description 06/03/2024 Transcribe Orders [facility] Department [address] [place] [address] Paola Arizmendi MD [address] [place] [address] Low back pain, unspecified back pain laterality, [...] documented as of this encounter Care Teams Shipping Helper Relationship Specialty Start Date End Date Tavo Flores DO [address] [place] [address], 2nd [place] [address] PCP - General Internal Medicine 09/16/21 Amando Kat MD [address] [place] [address] Dr Valadez [address] [place] [phone] Cardiology 04/17/20 Erickson Huitron MD [address] [place] [address] [address] [place] [address] Urology 04/17/20 [place] [address] Internal Medicine 04/26/21 Tavo Flores DO [address] [place] [address], 2[address] [place] [address] [email or web address] Insurance Assigned Provider 06/16/24 documented as of this encounter Additional Source Comments The information contained in this document represents components of the legal health record. It is not the complete legal health record.[facility]
--- OUTSIDE RECORDS SUMMARY | 2025-02-25 14:04 | XMS_ITS | Clinical Summary ---
Author Organization [facility] Address [address] [place] [address] Phone Care Team Providers Care Image Processing Engineer Name Role Phone Amando Kat MD Unavailable [phone] Erickson Huitron MD Unavailable Sukhdev Boogie MD Unavailable [phone] Tavo Flores DO Primary Care Provider Tavo Flores DO Unavailable [phone] Allergies Active Allergy Reactions Criticality Noted Date [...] erection 90 tablet 3 04/03/19 20 Active testosterone (ANDROGEL) 20.25 mg/1.25 gram (1.62 %) transdermal gel pump Apply 20.25 mg of testosterone topically daily. 4 pumps daily 06/13/19 20 Active tafamidis 61 mg Cap Take 1 capsule by mouth daily. 02/03/20 20 Active irbesartan (AVAPRO) 75 MG tablet Take 75 mg by mouth daily. Active torsemide (DEMADEX) 10 MG tablet Take 20 mg by mouth daily. 05/17/19 Active terazosin (HYTRIN) 5 MG capsule Take 1 capsule (5 mg total) by mouth nightly at bedtime. 12/21/19 Active Additional Information Patient not taking.Reported on 02/17/2025 cholecalciferol (VITAMIN D3) 25 MCG (1,000 unit) tablet Take 1,000 Units by mouth daily. Active ELIQUIS 5 mg tablet TAKE 1 TABLET BY MOUTH TWICE A DAY 180 tablet 01/28/20 Active AMVUTTRA 25 mg/0.5 mL Syrg subcutaneous injection syringe 01/14/20 Active GEMTESA 75 mg tablet Take 1 tablet by mouth every morning. 02/10/20 Active ELIQUIS 5 mg tablet TAKE 1 TABLET BY MOUTH TWICE A DAY 180 tablet 09/17/192024 Discontinued Active Problems Problem Noted Date Diagnosed [...] was seen by Dr. Damion Hannah, our jtac and Dr. 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 Is [...] symptoms of CHAPARRO. He was referred to [facility] hypertrophy clinic Dr. Fredis Naqvi. [...] for consult with hypertrophic cardiomyopathy clinic at [facility]. Elevated BP without diagnosis of hypertension [...] him evaluated by Dr. Shantanu Hyde at [facility] for the same. Increase metoprolol to [...] a very active with no symptoms. Continue beta-maay. He is scheduled to have a repeat [...] follows with Dr. Mcclain for the same. 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 He will need to wait 2.5 [...] Encounters Date Type Department Care Team Description 02/17/2025 4:07 PM EST Hospital Encounter [facility] [address] [place] [address] Nancy Del Rio FNP 02/17/2025 4:07 PM EST Hospital Encounter [facility] [address] [place] [address] Nancy Del Rio FNP 02/17/2025 3:40 PM EST Office Visit [facility] at [address] [address] Nancy Del Rio FNP Contusion of right hip, initial encounter (Primary Dx); Fall, initial encounter; Rib contusion, right, initial encounter 01/29/[address] [place] [address] Tavo Flores, DO Medication Management 01/26/[address] [place] [address] Aundrea Jacob, WILDLAND FIRE FIGHTER Medication Refill 01/09/[address] [place] [address] Tavo Flores, DO Triage (Yellow+abscess/cys t) 01/09/2025 Telephone [facility] [address] [place] [address] Lila Sanders MD Appointment from Last 3 [...] Mass Index 23.83 02/17/2025 3:59 PM EST Plan of Treatment Health Maintenance Due Date Last Done Comments ZOSTER VACCINES (2 of 3) 05/18/2011 03/23/2011 LIPID PANEL 03/23/2021 03/23/2016 DEPRESSION SCREENING 05/20/2023 05/19/2022, 03/26/19 19 RSV VACCINE (1 - 1-dose 75+ series) 07/16/2023 CREATININE LEVEL 02/07/2024 02/06/2023, , 04/28/2021, Additional history exists POTASSIUM LEVEL 02/07/2024 02/06/2023, 04/13, 04/28/2021, Additional history exists COVID-19 VACCINE (2024- season) 2025 12/27/2024, 01/03/2024, 01/12/2022, Additional history exists BLOOD PRESSURE 08/18/2025 02/17/2025 Adult Td,Tdap Booster 04/15/2029 04/15/2019 PNEUMOCOCCAL VACCINES (50+ years) Completed 03/15/2016, 05/30/2014 HEPATITIS C SCREENING Completed 04/17/2019, 020 INFLUENZA VACCINE Completed 12/27/2024, , 03/17/2023, Additional history exists SMOKING STATUS SCREENING (Once After 26 Yrs) Completed 02/17/2025 HEPATITIS A VACCINES Aged Out No long [...] this topic Medical Devices Implanted Type Area Casting Cleaner Device Identifier Shelf Expiration Date Model / Serial / Lot Left Ear Hips Shoulder Procedures Procedure Name Priority Date/Time Associated Diagnosis Comments XR HIP 2 VW RIGHT PLUS PELVIS Urgent/patient waiting 02/17/2025 4:22 PM EST Fall, initial encounter XR RIBS 3 OR MORE VIEWS WITH PA CHEST (RIGHT) Urgent/patient waiting 02/17/2025 4:22 PM EST Fall, initial encounter BASIC METABOLIC PANEL (BMP) Routine 02/06/2023 8:24 AM EST Medicare annual wellness visit, subsequent HEPATITIS C ANTIBODY, QUALITATIVE Routine 04/17/2019 8:57 AM EST Routine general medical examination at a health care facility from Last 3 Months or Most Recently Relevant to Health Maintenance Results * XR HIP 2 VW RIGHT [...] provided indication for this examination in [facility]: S/P Fall; states tripped on pavement, pain [...] hip arthroplasty, no complication. Nancy Del Rio COMMAND AND CONTROL OFFICER IMG XR PELVIS Final Resul t * [...] provided indication for this examination in [facility]: S/P Fall; states tripped on pavement, pain [...] provided indication for this examination in [facility]:S/P Fall; states tripped on pavement, pain right [...] No acute pulmonary process. Nancy Del Rio COMMAND AND CONTROL OFFICER IMG XR CHEST Final Resul t * (ABNORMAL) Basic metabolic panel (02/06/2023 8:24 AM EST) SODIUM 139 133 - 146 mmol/L [facility] CHLORIDE 101 96 - 108 mmol/L [facility] POTASSIUM 4.9 3.3 - 5.1 mmol/L [facility] CO2 29 21 - 35 mmol/L [facility] BUN 31(H) 6 - 19 mg/dL [facility] CREATININE 1.60(H) 0.5 - 1.5 mg/dL [facility] GLUCOSE 102(H) 70 - 99 mg/dL [facility] CALCIUM 9.4 8.4 - 10.3 mg/dL [facility] EGFR 45(L) >59 mL/min/1.7 3m2 [facility] Comment:Estimated glomerular filtration rate calculated using the CKD-EPI refit equation. ANION GAP 14 10 - 20 mmol/L [facility] Blood 02/06/2023 8:24 AM EST 02/06/2023 8:27 AM EST Tavo Flores DO LAB BLOOD BKR ORDERABLE S Final Result Performing Organization Address [facility]/ZIP Co de Phone Number [address] [address] * Hepatitis C antibody, qualitative (04/17/2019 8:57 AM EST) Pathologist [facility] [place] HCV NON-REACTIV E NON-REACTI VE [facility] Blood 04/17/2019 8:57 AM EST 04/17/2019 9:00 AM EST Danilo Ann MD LAB BLOOD BKR ORDERABLES F inal Result Performing Organization Address [facility]/ZIP Co de Phone Number [address] [address] from Last 3 Months or Most Recently Relevant to Health Maintenance Insurance [place], [place] MEDICARE PART A & B [employer] MEDICARE SUPPLEMENT MEDICARE PART A & B [employer] MEDICARE SUPPLEMENT MEDICARE PART A & B [facility] MEDICARE SUPPLEMENT MEDICARE PART A & B [facility] EXTENSION MEDICARE SUPPLEMENT MEDICARE PART A & [facility] EXTENSION MEDICARE SUPPLEMENT MEDICARE PART A & B [facility] EX[employer]ION MEDICARE SUPPLEMENT MEDICARE PART A & B [facility] [employer] MEDICARE SUPPLEMENT MEDICARE PART A & B [facility] [employer]ION MEDICARE SUPPLEMENT MED[place] PART [place] [id number] [employer] [facility] EXTENSION MEDICARE SUPPLEMENT Advance Directives For more information, please contact: [phone] (9AM - 5PM [facility], Monday-Monday) * Full Code (Presumed) (Latest Code Status on File) Date Activated Date Inactivated Comments 08/31/2017 7:22 AM 09/01/2017 4:20 AM Care Teams Image Processing Engineer Relationship Specialty Start Date End Date Tavo Flores DO [address] [place] [address], [address] [place] [address] PCP - General Internal Medicine 09/16/21 Amando Kat MD [address] [place] [address] [place] [phone] Cardiology 04/17/20 Erickson Huitron MD [address] [place] [address] Urology 04/17/20 [place] [address] Internal Medicine 04/26/21 Tavo Flores DO [address] [place] [address], [address] [place] [address] [email or web address] Insurance Assigned Provider 06/16/24 Additional Source Comments The information contained in this document represents components of the legal health record. It is not the complete legal health record.[facility]
--- OUTSIDE RECORDS SUMMARY | 2025-02-25 14:04 | XMS_ITS | Encounter Summary ---
Author Organization [facility] Address [address] [place] [address] Phone Care Team Providers Care Washroom Cleaner Name Role Phone Danilo Ann MD Primary Care Provider + [phone] Danilo Ann MD Unavailable [phone] BuffAmando camacho MD Unavailable [phone] Erickson Huitron MD Unavailable KeaganSukhdev guillen MD Unavailable [phone] Tavo Flores DO Primary Care Provider Danilo Ann MD Unavailable [phone] Tavo Flores DO Unavailable [phone] Encounter Details Date Type Department Care Team (Late st Contact Info) Description 08/31/2017 Procedure Pass [facility] Cardiovascular And Interventional Radiology [address] [place] [address] Social History Tobacco Use Types Packs/Day Years [...] documented as of this encounter Care Teams Washroom Cleaner Relationship Specialty Start Date End Date Danilo Ann MD [address] [address] [email or web address] PCP - General Internal Medicine 01/18/17 09/15/21 Tavo Flores DO [address] [place] [address], 2[address] [place] [address] [email or web address] PCP - General Internal Medicine 09/16/21 Danilo Ann MD [address] [address] [email or web address] Insurance Assigned Provider 10/14/17 03/15/22 Amando Kat MD [address] [place] [phone] Cardiology 04/17/20 Erickson Huitron MD [address] [place] [address] Urology 04/17/20 [place] [address] Internal Medicine 04/26/21 Danilo Ann MD [address] [address] [email or web address] Insurance Assigned Provider 10/14/17 03/19/22 Tavo Flores DO [address] [place] [address], 2[address] [place] [address] [email or web address] Insurance Assigned Provider 06/16/24 documented as of this encounter Additional Source Comments The information contained in this document represents components of the legal health record. It is not the complete legal health record.[facility]
--- OUTSIDE RECORDS SUMMARY | 2025-02-25 14:04 | XMS_ITS | Encounter Summary ---
Author Organization [facility] Address [address] [place] [address] Phone Care Team Providers Care Veneer Gluer Name Role Phone Danilo Ann MD Primary Care Provider + [phone] Danilo Ann MD Unavailable [phone] Amando Kat MD Unavailable [phone] Erickson Huitron MD Unavailable KeaganSukhdev guillen MD Unavailable [phone] Tavo Flores DO Primary Care Provider Danilo Ann MD Unavailable [phone] Tavo Flores DO Unavailable [phone] Encounter Details Date Type Department Care Team (Latest Contact Info) Description 06/08/2020 Transcribe Orders [address] [place] [address] Edmond Mesa MD [address] [place] [address], [address] [place] [address] [email or web address] Chronic kidney disease (CKD) stage G3a/A1, moderately [...] EDT) SODIUM 140 133 - 146 mmol/L [facility] CHLORIDE 103 96 - 108 mmol/L [facility] POTASSIUM 4.8 3.3 - 5.1 mmol/L [facility] CO2 28 21 - 35 mmol/L [facility] BUN 28(H) 6 - 19 mg/dL [facility] CREATININE 1.30 0.5 - 1.5 mg/dL [facility] GLUCOSE 87 70 - 99 mg/dL [facility] CALCIUM 9.2 8.4 - 10.3 mg/dL [facility] EGFR 55(L) >59 mL/min/1.7 3m2 [facility] Comment:Estimated glomerular filtration rate calculated using the CKD-EPI equation. ANION GAP 14 10 - 20 mmol/L [facility] Blood 06/08/2020 3:13 PM EDT 06/08/2020 3:14 PM EDT us Edmond Mesa MD LAB BLOOD BKR ORDERABLES Yaritza l Result [facility] [address] [place] [address] documented in this encounter Visit Diagnoses Diagnosis [...] documented as of this encounter Care Teams Veneer Gluer Relationship Specialty Start Date End Date Danilo Ann MD [address] [address] [email or web address] PCP - General Internal Medicine 01/18/17 09/15/21 Tavo Flores DO [address] [place] [address], [address] [place] [address] [email or web address] PCP - General Internal Medicine 09/16/21 Danilo nAn MD [address] [place] [address] [email or web address] Insurance Assigned Provider 10/14/17 03/15/22 Amando Kat MD [address] [place] [phone] Cardiology 04/17/20 Erickson Huitron MD [address] [place] [address] Urology 04/17/20 [place] [address] Internal Medicine 04/26/21 Danilo Ann MD [address] [place] [address] [email or web address] Insurance Assigned Provider 10/14/17 03/19/22 Tavo Flores DO [address] [place] [address], [address] Floor [place] [phone] [email or web address] Insurance Assigned Provider 06/16/24 documented as of this encounter Additional Source Comments The information contained in this document represents components of the legal health record. It is not the complete legal health record.[facility]
--- OUTSIDE RECORDS SUMMARY | 2025-02-25 14:04 | XMS_ITS | Encounter Summary ---
Author Organization [facility] Address [address] [place] [address] Phone Care Team Providers Care Multilith Operator Name Role Phone Danilo Ann MD Primary Care Provider + [phone] Danilo Ann MD Unavailable [phone] BuffAmando camacho MD Unavailable [phone] Erickson Huitron MD Unavailable KeaganSukhdev guillen MD Unavailable [phone] Tavo Flores DO Primary Care Provider Danilo Ann MD Unavailable [phone] Tavo Flores DO Unavailable [phone] Encounter Details Date Type Department Care Team (Late st Contact Info) Description 01/20/2017 Procedure Pass [facility] Cardiovascular And Interventional Radiology [address] [place] [address] Social History Tobacco Use Types Packs/Day Years [...] documented as of this encounter Care Teams Multilith Operator Relationship Specialty Start Date End Date Danilo Ann MD [address] [address] [email or web address] PCP - General Internal Medicine 01/18/17 09/15/21 Tavo Flores DO [address] [place] [address], 2nd [place] [address] [email or web address] PCP - General Internal Medicine 09/16/21 Danilo Ann MD [address] [place] [address] [email or web address] Insurance Assigned Provider 10/14/17 03/15/22 Amando Kat MD [address] [place] [phone] Cardiology 04/17/20 Erickson Huitron MD [address] [place] [address] Urology 04/17/20 [place] [address] Internal Medicine 04/26/21 Danilo Ann MD [address] [place] [address] [email or web address] Insurance Assigned Provider 10/14/17 03/19/22 Tavo Flores DO [address] [place] [address], 2nd [place] [address] [email or web address] Insurance Assigned Provider 06/16/24 documented as of this encounter Additional Source Comments The information contained in this document represents components of the legal health record. It is not the complete legal health record.[facility]
--- OUTSIDE RECORDS SUMMARY | 2025-02-25 14:04 | XMS_ITS | Clinical Summary ---
Author Organization [facility] Prior to 08/10/24 Address [address] [place] [address] Care Team Providers Care Statuary Painter Name Role Phone Danilo Ann MD Primary Care Provider [phone] Social History Tobacco Use Types Packs/Day Years [...] age to complete this topic Care Teams Statuary Painter Relationship Specialty Start Date End Date Danilo Ann MD [address] [place] [address] PCP - General Internal Medicine 01/14/19
--- OUTSIDE RECORDS SUMMARY | 2025-02-25 14:04 | XMS_ITS | Encounter Summary ---
Author Organization [facility] Address [address] [place] [address] Phone Care Team Providers Care Accounting Software Specialist Name Role Phone Danilo Ann MD Primary Care Provider + [phone] Danilo Ann MD Unavailable [phone] BuffAmando MD Unavailable [phone] Erickson Huitron MD Unavailable KeaganSukhdev guillen MD Unavailable [phone] Tavo Flores DO Primary Care Provider Danilo Ann MD Unavailable [phone] Tavo Flores DO Unavailable [phone] Encounter Details Date Type Department Care Team (Late st Contact Info) Description 06/07/2017 Transcribe Orders [facility] Specimen Processing [address] [place], [place] [id number] Danilo Ann MD [address] [place] [phone] [email or web address] Social History Tobacco Use Types Packs/Day Years [...] documented as of this encounter Care Teams Accounting Software Specialist Relationship Specialty Start Date End Date Danilo Ann MD [address] [place] [address] [email or web address] PCP - General Internal Medicine 01/18/17 09/15/21 Tavo Flores DO [address] [place] [address], [address] [place] [address] [email or web address] PCP - General Internal Medicine 09/16/21 Danilo Ann MD [address] [place] [address] [email or web address] Insurance Assigned Provider 10/14/17 03/15/22 Amando Kat MD [address] [place] [address] Dr Valadez [address] [place] [phone] Cardiology 04/17/20 Erickson Huitron MD [address] [place] [address] Urology 04/17/20 [place] [address] Internal Medicine 04/26/21 Danilo Ann MD [address] [place] [address] [email or web address] Insurance Assigned Provider 10/14/17 03/19/22 Tavo Flores DO [address] [place] [address], [address] [place] [address] [email or web address] Insurance Assigned Provider 06/16/24 documented as of this encounter Additional Source Comments The information contained in this document represents components of the legal health record. It is not the complete legal health record.[facility]
--- OUTSIDE RECORDS SUMMARY | 2025-02-25 14:04 | XMS_ITS | Encounter Summary ---
Author Organization [facility] Address [address] [place] [address] Phone Care Team Providers Care Loan Servicing Specialist Name Role Phone Unknown, Unknown Primary Care Provider Danilo Holly MD Primary Care Provider + [phone] Danilo Ann MD Unavailable [phone] Amando Kat MD Unavailable [phone] Erickson Huitron MD Unavailable Sukhdev Boogie MD Unavailable [phone] Tavo Flores DO Primary Care Provider Danilo Ann MD Unavailable [phone] Tavo Flores DO Unavailable [phone] Encounter Details Date Type Department Care Team (Late st Contact Info) Description 05/19/2016 Procedure Pass [facility] [address] [place] [address] Social History Tobacco Use Types Packs/Day Years [...] documented as of this encounter Care Teams Loan Servicing Specialist Relationship Specialty Start Date End Date Unknown, Unknown, MD PCP - General 01/01/16 01/17/17 Danilo Ann MD [address] [address] [email or web address] PCP - General Internal Medicine 01/18/17 09/15/21 Tavo Flores DO [address] [place] [address], 2nd [place] [address] [email or web address] PCP - General Internal Medicine 09/16/21 Danilo Ann MD [address] [address] [email or web address] Insurance Assigned Provider 10/14/17 03/15/22 Amando Kat MD [address] [place] [address] [place] [phone] Cardiology 04/17/20 Erickson Huitron MD [address] [place] [address] Urology 04/17/20 [place] [address] Internal Medicine 04/26/21 Danilo Ann MD [address] [address] [email or web address] Insurance Assigned Provider 10/14/17 03/19/22 Tavo Flores DO [address] [place] [address], [address] [place] [address] [email or web address] Insurance Assigned Provider 06/16/24 documented as of this encounter Additional Source Comments The information contained in this document represents components of the legal health record. It is not the complete legal health record.[facility]
--- OUTSIDE RECORDS SUMMARY | 2025-02-25 14:04 | XMS_ITS | Encounter Summary ---
Author Organization [facility] Address [address] [place] [address] [place] [address] Phone Care Team Providers Care Tail Dogger Name Role Phone Danilo Ann MD Primary Care Provider + [phone] Danilo Ann MD Unavailable [phone] BuffAmando camacho MD Unavailable [phone] Erickson Huitron MD Unavailable [phone] Sukhdev Boogie MD Unavailable [phone] Tavo Flores DO Primary Care Provider Danilo Ann MD Unavailable [phone] Tavo Flores DO Unavailable [phone] Encounter Details Date Type Department Care Team (Late st Contact Info) Description 05/30/2019 Transcribe Orders [facility] [address] [place] [address] Erickson Huitron MD [address] [place] [address] [address] [place] [address] Hypogonadism, male (Primary Dx) Social History Tobacco [...] EDT) TESTOSTERONE 649 249 - 836 ng/dL [facility] Blood 05/30/2019 10:4 0 AM EDT 05/30/2019 10:41 AM EDT us Erickson Hiutron MD LAB BLOOD BKR ORDERAB LES Final Result [address] [address] * CBC (05/30/2019 10:40 AM EDT) WBC 6.18 4.00 - 11.00 K/uL [facility] Comment:Note Reference Range updates to all CBC and Differential results. RBC 4.96 3.90 - 5.69 M/uL [facility] HGB 15.8 12.4 - 17.3 g/dL [facility] Comment:Note updated Referen ce Ranges for all CBC and Differential results. HCT 47.5 37.0 - 51.0 % [facility] PLT 189 140 - 430 K/uL [facility] MCV 95.8 78.0 - 97.0 fL [facility] MCH 31.9 25.0 - 33.0 pg [facility] MCHC 33.3 32.0 - 36.0 g/dL [facility] RDW 13.0 11.0 - 15.0 % [facility] MPV 12.1 8.4 - 12.8 fl [facility] NRBC 0.00 0 /100 WBCs [facility] ABSOLUTE NRBC 0.00 0 K/uL [facility] Blood 05/30/2019 10:4 0 AM EDT 05/30/2019 10:41 AM EDT us Erickson Huitron MD LAB BLOOD BKR ORDERAB LES Final Result [address] [address] * PSA (screening) (05/30/2019 10:40 AM EDT) PSA 2.87 0 - 4.00 ng/mL [facility] Blood 05/30/2019 10:4 0 AM EDT 05/30/2019 10:41 AM EDT us Erickson Huitron MD LAB BLOOD BKR ORDERAB LES Final Result Performing Organization Address City/[facility]/ZIP Co de Phone Number [address] [address] documented in this encounter Visit Diagnoses Diagnosis Hypogonadism, male- Primary Other testicular hypofunction documented in this encounter Additional Health Concerns Infection Onset Date Last Indicated Resolved Time CoV-Presumed 08/03/2021 08/03/2021 08/24/2021 1:21 AM EDT Assessment Noted Time PHQ-9 Depression Total Score: 3 03/26/19 10:48 AM EST PHQ-2 Depression Total Score: 0 04/15/19 10:47 AM EST documented as of this encounter Care Teams Tail Dogger Relationship Specialty Start Date End Date Danilo Ann MD [address] [place] [address] [email or web address] PCP - General Internal Medicine 01/18/17 09/15/21 Tavo Flores DO [address] [place] [address], 2nd [place] [address] [email or web address] PCP - General Internal Medicine 09/16/21 Danilo Ann MD [address] [place] [address] [email or web address] Insurance Assigned Provider 10/14/17 03/15/22 Amando Kat MD [address] [place] [phone] Cardiology 04/17/20 Erickson Huitron MD 100 [facility] 240 [place] [address] Urology 04/17/20 [place] [address] Internal Medicine 04/26/21 Danilo Ann MD 90 [facility] 101 [place] [address] [email or web address] Insurance Assigned Provider 10/14/17 03/19/22 Tavo Flores DO [address] [place] [address], 2nd [place] [address] [email or web address] Insurance Assigned Provider 06/16/24 documented as of this encounter Additional Source Comments The information contained in this document represents components of the legal health record. It is not the complete legal health record.[facility]
--- OUTSIDE RECORDS SUMMARY | 2025-02-25 14:04 | XMS_ITS | Encounter Summary ---
Author Organization [facility] Address [address] [place] [address] Phone Care Team Providers Care Finance Analyst Name Role Phone Danilo Ann MD Primary Care Provider + [phone] Danilo Ann MD Unavailable [phone] BuffAmanod camacho MD Unavailable [phone] Erickson Huitron MD Unavailable KeaganSukhdev guillen MD Unavailable [phone] Tavo Flores DO Primary Care Provider Danilo Ann MD Unavailable [phone] Tavo Flores DO Unavailable [phone] Encounter Details Date Type Department Care Team (Late st Contact Info) Description 12/12/2018 Procedure Pass [facility], [address] [address] Social History Tobacco Use Types Packs/Day Years [...] documented as of this encounter Care Teams Finance Analyst Relationship Specialty Start Date End Date Danilo Ann MD [address] [address] [email or web address] PCP - General Internal Medicine 01/18/17 09/15/21 Tavo Flores DO [address] [place] [address], 2nd [place] [address] [email or web address] PCP - General Internal Medicine 09/16/21 Danilo Ann MD [address] [address] [email or web address] Insurance Assigned Provider 10/14/17 03/15/22 Amando Kat MD [address] [place] [phone] Cardiology 04/17/20 Erickson Huitron MD [address] [place] [address] Urology 04/17/20 [place] [address] Internal Medicine 04/26/21 Danilo Ann MD 90 [facility] 101 [place] [address] [email or web address] Insurance Assigned Provider 10/14/17 03/19/22 Tavo Flores DO [address] [place] [address], 2nd [place] [address] [email or web address] Insurance Assigned Provider 06/16/24 documented as of this encounter Additional Source Comments The information contained in this document represents components of the legal health record. It is not the complete legal health record.[facility]
--- OUTSIDE RECORDS SUMMARY | 2025-02-25 14:04 | XMS_ITS | Encounter Summary ---
Author Organization [facility] Address [address] [place] [address] Phone Care Team Providers Care Medical Reimbursement Specialist Name Role Phone Unknown, Unknown Primary Care Provider Danilo Holly MD Primary Care Provider [phone] Danilo Ann MD Unavailable [phone] Amando Kat MD Unavailable [phone] Erickson Huitron MD Unavailable Sukhdev Boogie MD Unavailable [phone] Tavo Flores DO Primary Care Provider Danilo Ann MD Unavailable [phone] Tavo Flores DO Unavailable [phone] Encounter Details Date Type Department Care Team (Late st Contact Info) Description 05/25/2016 Transcribe Orders [facility] 75 [place] [address] Juliet Nelson [address] [place] [address] [email or web address] Social History Tobacco Use Types Packs/Day Years [...] as of this encounter Care Teams Medical Reimbursement Specialist Relationship Specialty Start Date End Date Unknown, Unknown, MD PCP - General 01/01/16 01/17/17 Danilo Ann MD [address] [place] [address] [email or web address] PCP - General Internal Medicine 01/18/17 09/15/21 Taov Flores DO [address] [place] [address] PCP - General Internal Medicine 09/16/21 Danilo Ann MD [address] [address] [email or web address] Insurance Assigned Provider 10/14/17 03/15/22 Amando Kat MD [address] [place] [phone] Cardiology 04/17/20 Erickson Huitron MD [address] [place] [address] Urology 04/17/20 [place] [address] Internal Medicine 04/26/21 Danilo Ann MD [address] [place] [address] [email or web address] Insurance Assigned Provider 10/14/17 03/19/22 Tavo Flores DO [address] [place] [address], [address] [place] [address] [email or web address] Insurance Assigned Provider 06/16/24 documented as of this encounter Additional Source Comments The information contained in this document represents components of the legal health record. It is not the complete legal health record.[facility]
--- OUTSIDE RECORDS SUMMARY | 2025-02-25 14:04 | XMS_ITS | Encounter Summary ---
Author Organization [facility] Address [address] [place] [address] Phone Care Team Providers Care Bobbin Painter Name Role Phone Amando Kat MD Unavailable [phone] Erickson Huitron MD Unavailable [phone] Sukhdev Boogie MD Unavailable [phone] Tavo Flores DO Primary Care Provider Tavo Flores DO Unavailable Encounter Details Date Type Department Care Team (Late st Contact Info) Description 06/20/2024 Procedure Pass [place] Admitting Dept - Virtual Department [address] [place] [address] Social History Tobacco Use Types Packs/Day Years [...] documented as of this encounter Care Teams Bobbin Painter Relationship Specialty Start Date End Date Tavo Flores DO [address] [place] [address] PCP - General Internal Medicine 09/16/21 Amando Kat MD [address] [place] [address] Dr [address] [place] [phone] Cardiology 04/17/20 Erickson Huitron MD [address] [place] [address] Urology 04/17/20 [place] [address] Internal Medicine 04/26/21 Tavo Flores DO [address] [place] [address] [email or web address] Insurance Assigned Provider 06/16/24 documented as of this encounter Additional Source Comments The information contained in this document represents components of the legal health record. It is not the complete legal health record.[facility]
--- OUTSIDE RECORDS SUMMARY | 2025-02-25 14:05 | XMS_ITS | Encounter Summary ---
Author Organization [facility] Address [address] [place] [address] [place] [address] Phone Care Team Providers Care Natural Resource Specialist Name Role Phone Danilo Ann MD Primary Care Provider + [phone] Danilo Ann MD Unavailable [phone] BuffAmando camacho MD Unavailable [phone] Erickson Huitron MD Unavailable Sukhdev Boogie MD Unavailable [phone] Tavo Flores DO Primary Care Provider Danilo Ann MD Unavailable [phone] Tavo Flores DO Unavailable [phone] Encounter Details Date Type Department Care Team (Late st Contact Info) Description 12/06/2018 Transcribe Orders [address] [address] Erickson Huitron MD [address] [place] [address] 240 [place] [address] 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); [...] EDT) TESTOSTERONE 895(H) 249 - 836 ng/dL [facility] Blood 12/06/2018 10:3 7 AM EDT 12/06/2018 11:05 AM EDT us Erickson Huitron MD LAB BLOOD BKR ORDERAB LES Final Result [address] [address] * CBC (12/06/2018 10:37 AM EDT) WBC 6.25 3.40 - 11.20 K/uL [facility] RBC 5.05 4.50 - 5.50 M/uL [facility] HGB 16.6 13.0 - 17.0 g/dL [facility] HCT 48.5 40.0 - 51.0 % [facility] PLT 214 130 - 400 K/uL [facility] MCV 96.0 79.0 - 98.0 fL [facility] MCH 32.9 27.0 - 34.8 pg [facility] MCHC 34.2 31.5 - 36.0 g/dL [facility] RDW 14.0 10.8 - 14.6 % [facility] MPV 11.1 9.4 - 12.4 fl [facility] NRBC 0.00 0.00 /100 WBCs [facility] ABSOLUTE NRBC 0.00 0.00 K/uL [facility] Blood 12/06/2018 10:3 7 AM EDT 12/06/2018 11:05 AM EDT us Erickson Huitron MD LAB BLOOD BKR ORDERAB LES Final Result [address] [address] * PSA (screening) (12/06/2018 10:37 AM EDT) PSA 2.70 0 - 4.00 ng/mL [facility] Blood 12/06/2018 10:3 7 AM EDT 12/06/2018 11:06 AM EDT us Erickson Huitron MD LAB BLOOD BKR ORDERAB LES Final Result Performing Organization Address City/[facility]/ZIP Co de Phone Number [address] [address] documented in this encounter Visit Diagnoses Diagnosis [...] documented as of this encounter Care Teams Natural Resource Specialist Relationship Specialty Start Date End Date Danilo Ann MD [address] [address] [email or web address] PCP - General Internal Medicine 01/18/17 09/15/21 Tavo Flores DO [address] [place] [address], 2nd [place] [address] [email or web address] PCP - General Internal Medicine 09/16/21 Dnailo Ann MD [address] [address] [email or web address] Insurance Assigned Provider 10/14/17 03/15/22 Amando Kat MD [address] [place] [address] 410 [place] [address] Cardiology 04/17/20 Erickson Huitron MD 100 [facility] 240 [place] [address] Urology 04/17/20 Sukhdev [place] [address] Internal Medicine 04/26/21 Danilo Ann MD 90 [facility] 101 [place] [address] [email or web address] Insurance Assigned Provider 10/14/17 03/19/22 Tavo Flores DO [address] [place] [address], 2nd [place] [address] [email or web address] Insurance Assigned Provider 06/16/24 documented as of this encounter Additional Source Comments The information contained in this document represents components of the legal health record. It is not the complete legal health record.[facility]
--- OUTSIDE RECORDS SUMMARY | 2025-02-25 14:05 | XMS_ITS | Encounter Summary ---
Author Organization [facility] Address [address] [place] [address] [place] [address] Phone Care Team Providers Care Operations Support Coordinator Name Role Phone Danilo Ann MD Primary Care Provider + [phone] Danilo Ann MD Unavailable [phone] Amando Kat MD Unavailable [phone] Erickson Huitron MD Unavailable KeaganSukhdev guillen MD Unavailable [phone] Tavo Flores DO Primary Care Provider Danilo Ann MD Unavailable [phone] Tavo Flores DO Unavailable [phone] Encounter Details Date Type Department Care Team (Latest Contact Info) Description 04/04/2017 Ancillary [facility] 22 [facility] 3rd Floor, [address] [place] [address] Amando Knight DO 22 [facility] [address] [place] [address] [email or web address] Carotid artery disease, unspecified laterality Social History [...] documented as of this encounter Care Teams Operations Support Coordinator Relationship Specialty Start Date End Date Danilo Ann MD [address] [place] [address] [email or web address] PCP - General Internal Medicine 01/18/17 09/15/21 Tavo Flores DO [address] [place] [address], 2[address] [place] [address] [email or web address] PCP - General Internal Medicine 09/16/21 Danilo Ann MD [address] [place] [address] [email or web address] Insurance Assigned Provider 10/14/17 03/15/22 Amando Kat MD [address] [place] [phone] Cardiology 04/17/20 Erickson Huitron MD [address] [place] [address] Urology 04/17/20 [place] [address] Internal Medicine 04/26/21 Danilo Ann MD [address] [place] [address] [email or web address] Insurance Assigned Provider 10/14/17 03/19/22 Tavo Flores DO [address] [place] [address], 2[address] [place] [address] [email or web address] Insurance Assigned Provider 06/16/24 documented as of this encounter Additional Source Comments The information contained in this document represents components of the legal health record. It is not the complete legal health record.[facility]
--- OUTSIDE RECORDS SUMMARY | 2025-02-25 14:05 | XMS_ITS | Encounter Summary ---
Author Organization [facility] Address [address] [place] [address] [place] [address] Phone Care Team Providers Care Mold Maker Helper Name Role Phone Danilo Ann MD Primary Care Provider + [phone] Danilo Ann MD Unavailable [phone] BuffAmando camacho MD Unavailable [phone] Erickson Huitron MD Unavailable Sukhdev Boogie MD Unavailable [phone] Tavo Flores DO Primary Care Provider Danilo Ann MD Unavailable [phone] Tavo Flores DO Unavailable [phone] Encounter Details Date Type Department Care Team (Late st Contact Info) Description 05/31/2018 Transcribe Orders [address] [address] Erickson Huitron MD [address] [place] [address] 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) [...] EDT) TESTOSTERONE 353 72 - 623 ng/dL [facility] Blood 05/31/2018 11:3 3 AM EDT 05/31/2018 11:40 AM EDT us Erickson Huitron MD LAB BLOOD BKR ORDERAB LES Final Result [facility] 30 [place] [address] * CBC (05/31/2018 11:33 AM EDT) WBC 5.50 3.40 - 11.20 K/uL [facility] RBC 5.00 4.50 - 5.50 M/uL [facility] HGB 15.6 13.0 - 17.0 g/dL [facility] HCT 45.8 40.0 - 51.0 % [facility] PLT 202 130 - 400 K/uL [facility] MCV 91.6 79.0 - 98.0 fL [facility] MCH 31.2 27.0 - 34.8 pg [facility] MCHC 34.1 31.5 - 36.0 g/dL [facility] RDW 12.4 10.8 - 14.6 % [facility] MPV 11.9 9.4 - 12.4 fl [facility] NRBC 0.00 0.00 /100 WBCs [facility] ABSOLUTE NRBC 0.00 0.00 K/uL [facility] Blood 05/31/2018 11:3 3 AM EDT 05/31/2018 11:40 AM EDT us Erickson Huitron MD LAB BLOOD BKR ORDERAB LES Final Result [address] [address] * PSA (screening) (05/31/2018 11:33 AM EDT) PSA 3.24 0 - 4.00 ng/mL [facility] Blood 05/31/2018 11:3 3 AM EDT 05/31/2018 11:41 AM EDT us Erickson Huitron MD LAB BLOOD BKR ORDERAB LES Final Result [address] [address] documented in this encounter Visit Diagnoses Diagnosis [...] documented as of this encounter Care Teams Mold Maker Helper Relationship Specialty Start Date End Date Danilo Ann MD [address] [place] [address] [email or web address] PCP - General Internal Medicine 01/18/17 09/15/21 Tavo Flores DO [address] [place] [address], 2nd [place] [address] [email or web address] PCP - General Internal Medicine 09/16/21 Danilo Ann MD [address] [address] [email or web address] Insurance Assigned Provider 10/14/17 03/15/22 Amando Kat MD [address] [place] [address] 410 [place] [address] Cardiology 04/17/20 Erickson Huitron MD 100 [facility] 240 [place] [address] Urology 04/17/20 [place] [address] Internal Medicine 04/26/21 Danilo Ann MD [address] [place] [address] 101 [place] [address] [email or web address] Insurance Assigned Provider 10/14/17 03/19/22 Tavo Flores DO [address] [place] [address], 2nd [place] [address] [email or web address] Insurance Assigned Provider 06/16/24 documented as of this encounter Additional Source Comments The information contained in this document represents components of the legal health record. It is not the complete legal health record.[facility]
== END 2025-02-25 12:18 | disposition home or self-care (01) ==
LOC: HO.HUSH 10:52
PROVIDERS: PCP Pediatrics; Visit Provider Urology
DX: N40.1 Benign prostatic hyperplasia with lower urinary tract symptoms (principal); N13.8 Other obstructive and reflux uropathy

== ENCOUNTER → 2025-02-25 10:51 | Outpatient (BNVA) | payer MEDICARE, OTHER, SELFPAY | PROVIDERS: PCP Pediatrics; Visit Provider Urology | DX: N40.1 Benign prostatic hyperplasia with lower urinary tract symptoms (principal); N13.8 Other obstructive and reflux uropathy; N32.81 Overactive bladder; R39.15 Urgency of urination; E29.1 Testicular hypofunction; N52.9 Male erectile dysfunction, unspecified | CPT/HCPCS: 51798; 81003 ==